=== PATIENT | male | born 1965 | race Hispanic/Latino ===

== ENCOUNTER 2018-08-19 04:18 | Inpatient (IN) | payer MEDICARE ==
[2018-08-19 04:18] VITALS: BMI 25.0
[2018-08-19] MEDS ORDERED: Naloxone 0.4 mg/ml Inj (Adult) ONE (04:33)
--- NOTE | 2018-08-19 04:35 | C.PDOC ---
Chief Complaint (Nursing): Substance Abuse Past Medical History - Medical History PMH: Anxiety, HTN, Parkinson's Disease Denies: HIV, Chronic Kidney Disease - [facility] Procedures INJECT/INFUSE NEC (01/19/14) INTRODUCTION OF SERUM/TOX/VACCINE INTO MUSCLE, PERC APPROACH (06/30/18) Family History: States: CAD - Social History Hx Alcohol Use: No Hx Substance Use: No - Immunization History Hx Tetanus Toxoid Vaccination: No Hx Influenza Vaccination: No Hx Pneumococcal Vaccination: No Disposition - Disposition
--- NOTE | 2018-08-19 04:36 | C.PDOC ---
History Of Present Illness 53 year old male is brought to the ED by EMS for possible overdose at home [employer]. Patient took too much of his medications, klonapin and seroquil. Patient denies fever, chills, headache, nausea, vomit, dizziness, rash, trauma, injury, fall. Chief Complaint (Nursing): Substance Abuse History Per: Patient, EMS History/Exam Limitations: clinical condition Onset/Duration Of Symptoms: Hrs Current Symptoms Are (Timing): Still Present Suicide/Self Injury Attempted (Context): Ingestion Modifying Factor(s): Narcotics Associated Symptoms: Depression, Suicidal Thoughts, Suicidal Plan Recent travel outside of the [place]: No Additional History Per: Patient, EMS Past Medical History Reviewed: Historical Data, Nursing Documentation, Vital Signs - Medical History PMH: Anxiety, HTN, Parkinson's Disease Denies: HIV, Chronic Kidney Disease Surgical History: No Surg Hx - [facility] Procedures INJECT/INFUSE NEC (01/19/14) INTRODUCTION OF SERUM/TOX/VACCINE INTO MUSCLE, PERC APPROACH (06/30/18) Family History: States: CAD - Social History Hx Alcohol Use: No Hx Substance Use: No - Immunization History Hx Tetanus Toxoid Vaccination: No Hx Influenza Vaccination: No Hx Pneumococcal Vaccination: No Review Of Systems Review Of Systems: ROS cannot be obtained secondary to pt's inabilty to answer questions. Physical Exam - Physical Exam Appears: Non-toxic, Other (lethargic) Skin: Normal Color, Warm, Dry Head: Atraumatic, Normacephalic Eye(s): bilateral: Normal Inspection, PERRL Oral Mucosa: Moist Neck: Normal ROM, Supple Chest: Symmetrical Cardiovascular: Rhythm Regular Respiratory: Normal Breath Sounds, No Rales, No Rhonchi, No Wheezing Gastrointestinal/Abdominal: Soft, No Tenderness, No Guarding, No Rebound Extremity: Normal ROM, No Tenderness, No Swelling Neurological/Psych: Other (response to strong stimuli, non verbal) Gait: Unable To Assess ED Course And Treatment - Laboratory Results Result Diagrams: 08/19/18 04:50 08/19/18 04:50 ECG: Interpreted By Me, Viewed By Me ECG Rhythm: Sinus Tachycardia ECG Interpretation: No Acute Changes Interpretation Of ECG: Sinus tachycardia, no acute changes, QT-34.8ms. Repeat EKG, NSR, vertical axis, no significant change from prior tracings, rate of 95/min. Rate From EC O2 Sat by Pulse Oximetry: 100 (ON RA) Pulse Ox Interpretation: Normal - Radiology CXR: Interpreted by Me, Viewed By Me CXR Interpretation: Yes: Other (possible infiltrate right lower lung field) - CT Scan/US CT head Other Rad Studies (CT/US): Read By Radiologist, Radiology Report Reviewed CT/US Interpretation: CT SCAN OF THE BRAIN WITHOUT IV CONTRAST. CLINICAL INDICATION: Overdose. TECHNIQUE: Axial and reformatted sagittal and coronal images of the brain obtained without IV contrast administration. Normal size of the ventricles and extra-axial spaces for the patient's age. Normal white matter tracts of the supratentorial brain. Normal basal ganglia and thalami. Normal brainstem. Normal cerebellum. There is no demonstrated extra-axial, intraparenchymal, or intraventricular hemorrhage. There are no findings of an acute ischemic infarction. Normal calvarium. There is no demonstrated fracture. Normal soft tissue structures. Mild chronic mucosal inflammatory changes of the paranasal sinuses. IMPRESSION: Normal unenhanced CT scan of the brain. . Electronically signed on Aug 19, 2018 5:47:44 AM EDT by: Ashleigh paige M.D., Certified by ABR, MSK, Neuroradiology Progress Note: 0500H Patient noted to respond to Romaxicon 0.25mg IV, subsequently noted to respond to verbal stimuli and questioning with slurred speech. Vital signs remained stable. Medical Decision Making Medical Decision Making: Plan: * ABG * CT head * EKG * Labs * CXR * Narcan 0.4 mg IVP * IV fluids * Spoke with Dr. Mark who accepts the patient to be admitted to her service. Pending ICU evaluation by Dr. Stephens Disposition Discussed With : Janee Mark Doctor Will See Patient In The: Hospital Counseled Patient/Family Regarding: Diagnosis - Disposition Disposition: HOSPITALIZED Disposition Time: 07:00 Condition: GUARDED Forms: [facility] (Romanian) - POA Present On Arrival: None - Clinical Impression Clinical Impression: Drug overdose, intentional - Scribe Statement The provider has reviewed the documentation as recorded by the Scribe Ck Daniels All medical record entries made by the Scribe were at my direction and personally dictated by me. I have reviewed the chart and agree that the record accurately reflects my personal performance of the history, physical exam, medical decision making, and the department course for this patient. I have also personally directed, reviewed, and agree with the discharge instructions and d isposition.
[2018-08-19] MEDS ORDERED: Sodium Chloride 0.9% 1,000 ML IV ONE (04:38)
[2018-08-19] MEDS ORDERED: Naloxone 0.4 mg/ml Inj (Adult) IVP ONE (04:38)
[2018-08-19] MEDS ORDERED: Flumazenil 0.1 mg/ml Inj (5ml) IVP ONE (04:48)
[2018-08-19 05:00] LABS: BASO # 0.1 K/uL (0.0-0.2); BASO % 0.4 % (0.0-2.0); EOS # 0.1 K/uL (0.0-0.7); HEMOGLOBIN 13.6 g/dL (12.0-18.0); LYMPH # 0.8 K/uL (1.0-4.3); LYMPH % 6.3 % (20.0-40.0); MEAN CELL VOLUME 85.1 fL (80.0-94.0); MEAN CORPUSCULAR HEMOGLOBIN 28.3 pg (27.0-31.0); MEAN CORPUSCULAR HGB CONC 33.2 g/dL (33.0-37.0); MEAN PLATELET VOLUME 7.8 fL (7.2-11.7); MONO # 0.4 K/uL (0.0-0.8); MONO % 3.3 % (0.0-10.0); NEUT # 11.7 K/uL (1.8-7.0); PLATELET COUNT 411 K/uL (130-400); RBC 4.82 Mil/uL (4.40-5.90); RED CELL DISTRIBUTION WIDTH 16.8 % (11.5-14.5); WHITE BLOOD COUNT 13.1 K/uL (4.8-10.8)
[2018-08-19] MEDS ORDERED: Flumazenil 0.1 mg/ml Inj (5ml) IVP STA (05:01)
[2018-08-19 05:12] LABS: SQUAMOUS EPITHIAL < 1 /hpf (0-5); URINE BACTERIA RARE (<OCC); URINE BILIRUBIN NEGATIVE (NEGATIVE); URINE BLOOD NEGATIVE (NEGATIVE); URINE CLARITY Hazy (Clear); URINE COLOR Yellow (YELLOW); URINE GLUCOSE (UA) NORMAL (Normal); URINE LEUKOCYTE ESTERASE NEG Leu/uL (Negative); URINE PROTEIN NEGATIVE (NEGATIVE); URINE UROBILINOGEN NORMAL mg/dL (0.2-1.0)
[2018-08-19 05:19] LABS: ACETAMINOPHEN < 10.0 ug/mL (10.0-30.0); ALB/GLOB RATIO 1.6 (1.0-2.1); ALBUMIN 3.7 g/dL (3.5-5.0); ALT/SGPT 40 U/L (21-72); AST/SGOT 39 U/L (17-59); BLOOD UREA NITROGEN 12 mg/dL (9-20); CALCIUM 8.2 mg/dl (8.6-10.4); GFR NON-AFRICAN AMERICAN > 60; SALICYLATE < 1.0 mg/dL 1
[2018-08-19 05:23] LABS: BARBITURATES, UR NEGATIVE (NEGATIVE); OPIATES, UR NEGATIVE (NEGATIVE); PHENCYCLIDINE, UR NEGATIVE (NEGATIVE)
[2018-08-19 05:26] LABS: ABG ALLEN TEST YES; ARTERIAL BLOOD GAS HCO3 23.6 mmol/L (21-28); ARTERIAL BLOOD GAS O2 SAT 100.6 % (95-98); ARTERIAL BLOOD GAS PCO2 41 mm/Hg (35-45); ARTERIAL BLOOD GAS PH 7.37 (7.35-7.45); ARTERIAL BLOOD GAS PO2 110 mm/Hg (80-100)
[2018-08-19] MEDS ORDERED: Azithromycin 500 MG in Sodium Chloride 0.9% 250 ML IVPB STA (05:59)
[2018-08-19] MEDS ORDERED: cefTRIAXone IV 1 gm in Dextros 50 ML IVPB ONE (05:59)
[2018-08-19] MEDS ORDERED: Azithromycin 500mg/250ML NS 500 MG/250 ML BAG IVPB ONE (06:10)
[2018-08-19] MEDS ORDERED: cefTRIAXone 1 gm 1 GM/100 ML BAG IVPB ONE (06:11)
[2018-08-19 06:14] LABS: BANDS 4 % (0-2); EOSINOPHIL 1 % (0-4); LYMPHOCYTE 4 % (20-40); MONOCYTE 4 % (0-10); NEUTROPHIL 87 % (50-75); PLATELET ESTIMATE NORMAL (NORMAL); TOTAL CELLS COUNTED 100
[2018-08-19 07:22] LABS: BENZODIAZEPINES, UR POSITIVE (NEGATIVE)
--- NOTE | 2018-08-19 09:25 | CT ---
Date of service: 08/19/2018 PROCEDURE: CT HEAD WITHOUT CONTRAST. HISTORY: Overdose COMPARISON: None available. TECHNIQUE: Axial computed tomography images were obtained through the head/brain without intravenous contrast. Radiation dose: Total exam DLP = 1010.91 mGy-cm. This CT exam was performed using one or more of the following dose reduction techniques: Automated exposure control, adjustment of the mA and/or kV according to patient size, and/or use of iterative reconstruction technique. FINDINGS: HEMORRHAGE: No intracranial hemorrhage. BRAIN: There are mild chronic microangiopathic changes. There is no mass, mass effect or abnormal extra-axial fluid collection. There is no territorial infarction. The midline sagittal structures are normal. VENTRICLES: There is mild age advanced global parenchymal volume loss and proportionate enlargement of the ventricles and cortical sulci. There is a 1.1 x 1.2 cm left choroid fissure cyst. CALVARIUM: Unremarkable. PARANASAL SINUSES: Mild mucoperiosteal thickening in the ethmoid air cells remaining included paranasal sinuses are clear. MASTOID AIR CELLS: Unremarkable as visualized. No inflammatory changes. OTHER FINDINGS: None. IMPRESSION: No acute intracranial abnormality. Mild chronic microangiopathic changes and mild age advanced global parenchymal volume loss.
--- NOTE | 2018-08-19 09:47 | RAD ---
Date of service: 08/19/2018 PROCEDURE: CHEST RADIOGRAPH, 1 VIEW HISTORY: Overdosed COMPARISON: None available. FINDINGS: LUNGS: The lungs are well inflated. There is bibasilar atelectasis/scarring. PLEURA: No pneumothorax or pleural fluid seen. CARDIOVASCULAR: Normal. OSSEOUS STRUCTURES: No significant abnormalities. VISUALIZED UPPER ABDOMEN: Normal. OTHER FINDINGS: None. IMPRESSION: No acute findings.
--- NOTE | 2018-08-19 11:25 | CP.PCM.HP ---
<Rodger Galvez - Last Filed: 08/19/18 18:44> History of Present Illness - History of Present Illness History of Present Illness: 53 year old male PMHx of Parkinson's is brought to the ED by EMS for possible overdose at home. Patient took too much of his medications, klonapin and sero quil. Patient has recently stopped getting care from his previous neurologist and is not currently being managed for his Parkinson's. His suicide attempt was premeditatted and decided to take the entire bottle of all his home medications. Patient denies fever, chills, headache, nausea, vomit, dizziness, rash, trauma, injury, fall. PMD: Dr Andrews in [place]. Neurologist: Dr Singh [facility]. Social Hx: Pt reports still smoking a few cigarettes a day, and marihuana which help him with his anxiety. Pt drinks socially only 1-2 beers weekly. Pt can recall events prior to OD but wanes out of conscious. Reports taking full bottle of flexaril, seroquil, tyleno PM and about 7 days worth of Sinemet Present on Admission - Present on Admission Any Indicators Present on Admission: No Review of Systems - Review of Systems Systems not reviewed;Unavailable: Altered Mental Status Past Patient History - Past Medical History & Family History Past Medical History?: Yes - Past Social History Smoking Status: Light Smoker < 10 Cigarettes Daily - CARDIAC Hx Hypertension: Yes - PULMONARY Hx Respiratory Disorders: No - NEUROLOGICAL Hx Parkinson's Disease: Yes - HEENT Hx HEENT Problems: No - RENAL Hx Chronic Kidney Disease: No - ENDOCRINE/METABOLIC Hx Endocrine Disorders: No - HEMATOLOGICAL/ONCOLOGICAL Hx Human Immunodeficiency Virus (HIV): No - INTEGUMENTARY Hx Dermatological Problems: No - MUSCULOSKELETAL/RHEUMATOLOGICAL Hx Musculoskeletal Disorders: No Hx Falls: No - GASTROINTESTINAL Hx Gastrointestinal Disorders: No - GENITOURINARY/GYNECOLOGICAL Hx Genitourinary Disorders: No - PSYCHIATRIC Hx Anxiety: Yes Hx Substance Use: No - SURGICAL HISTORY Hx Surgeries: No - ANESTHESIA Hx Anesthesia: No Meds Allergies/Adverse Reactions: Allergies Allergy/AdvReac Type Severity Reaction Status Date / Time No Known Allergies Allergy Verified 07/21/14 11:25 Physical Exam - Constitutional Appears: In Acute Distress - Head Exam Head Exam: ATRAUMATIC, NORMAL INSPECTION - Eye Exam Eye Exam: EOMI, Normal appearance - ENT Exam ENT Exam: Mucous Membranes Dry - Respiratory Exam Respiratory Exam: Clear to Auscultation Bilateral - Cardiovascular Exam Cardiovascular Exam: Tachycardia, +S1, +S2 - GI/Abdominal Exam GI & Abdominal Exam: absent: Organomegaly - Extremities Exam Extremities exam: Positive for: normal inspection - Back Exam Back exam: NORMAL INSPECTION - Neurological Exam Neurological exam: Abnormal Gait (bradykinetic), Alert, CN II-XII Intact, Oriented x3 - Psychiatric Exam Psychiatric exam: Suicidal Ideation Results - Vital Signs Recent Vital Signs: Last Vital Signs Temp 97.5 F L 08/19/18 05:57 Pulse 96 H 08/19/18 09:00 Resp 12 08/19/18 09:00 BP 112/74 08/19/18 09:00 Pulse Ox 100 08/19/18 09:00 - Labs Result Diagrams: 08/19/18 04:50 08/19/18 04:50 Labs: Laboratory Results - last 24 hr 08/19/18 08/19/18 08/19/18 04:49 04:50 04:50 WBC 13.1 H RBC 4.82 Hgb 13.6 Hct 41.0 MCV 85.1 MCH 28.3 MCHC 33.2 RDW 16.8 H Plt Count 411 H MPV 7.8 Neut % (Auto) 89.0 H Lymph % (Auto) 6.3 L [place] % (Auto) 3.3 Eos % (Auto) 1.0 Baso % (Auto) 0.4 Neut # (Auto) 11.7 H Lymph # (Auto) 0.8 L [place] # (Auto) 0.4 Eos # (Auto) 0.1 Baso # (Auto) 0.1 Neutrophils % (Manual) 87 H Band Neutrophils % 4 H Lymphocytes % (Manual) 4 L Monocytes % (Manual) 4 Eosinophils % (Manual) 1 Platelet Estimate Normal Puncture Site pCO2 pO2 HCO3 ABG pH ABG Total CO2 ABG O2 Saturation ABG Base Excess ABG Hemoglobin ABG Carboxyhemoglobin POC ABG HHb (Measured) ABG Methemoglobin Robert Test A-a O2 Difference Respiratory Index Hgb O2 Saturation FiO2 Sodium Potassium Chloride Carbon Dioxide Anion Gap BUN Creatinine Est GFR ( Amer) Est GFR (Non-Af Amer) POC Glucose (mg/dL) 105 Random Glucose Calcium Magnesium Total Bilirubin AST ALT Alkaline Phosphatase Total Protein Albumin Globulin Albumin/Globulin Ratio Urine Color Yellow Urine Clarity Hazy Urine pH 5.0 Ur Specific Hewitt 1.018 Urine Protein Negative Urine Glucose (UA) Normal Urine Ketones Negative Urine Blood Negative Urine Nitrate Negative Urine Bilirubin Negative Urine Urobilinogen Normal Ur Leukocyte Esterase Neg Urine WBC (Auto) 16 H Urine RBC (Auto) 1 Ur Squamous Epith Cells < 1 Urine Bacteria Rare Hyaline Casts 6-10 H Salicylates Urine Opiates Screen Urine Methadone Screen Acetaminophen Ur Barbiturates Screen Ur Phencyclidine Scrn Ur Amphetamines Screen U Benzodiazepines Scrn U Oth Cocaine Metabols U Cannabinoids Screen Alcohol, Quantitative 08/19/18 08/19/18 08/19/18 04:50 04:50 04:50 WBC RBC Hgb Hct MCV MCH MCHC RDW Plt Count MPV Neut % (Auto) Lymph % (Auto) Oxford % (Auto) Eos % (Auto) Baso % (Auto) Neut # (Auto) Lymph # (Auto) [place] # (Auto) Eos # (Auto) Baso # (Auto) Neutrophils % (Manual) Band Neutrophils % Lymphocytes % (Manual) Monocytes % (Manual) Eosinophils % (Manual) Platelet Estimate Puncture Site pCO2 pO2 HCO3 ABG pH ABG Total CO2 ABG O2 Saturation ABG Base Excess ABG Hemoglobin ABG Carboxyhemoglobin POC ABG HHb (Measured) ABG Methemoglobin Robert Test A-a O2 Difference Respiratory Index Hgb O2 Saturation FiO2 Sodium 142 Potassium 3.4 L Chloride 107 Carbon Dioxide 21 L Anion Gap 17 BUN 12 Creatinine 0.8 Est GFR ( Amer) > 60 Est GFR (Non-Af Amer) > 60 POC Glucose (mg/dL) Random Glucose 99 Calcium 8.2 L Magnesium 1.8 Total Bilirubin 0.6 AST 39 ALT 40 Alkaline Phosphatase 49 Total Protein 6.0 L Albumin 3.7 Globulin 2.3 Albumin/Globulin Ratio 1.6 Urine Color Urine Clarity Urine pH Ur Specific Hewitt Urine Protein Urine Glucose (UA) Urine Ketones Urine Blood Urine Nitrate Urine Bilirubin Urine Urobilinogen Ur Leukocyte Esterase Urine WBC (Auto) Urine RBC (Auto) Ur Squamous Epith Cells Urine Bacteria Hyaline Casts Salicylates < 1.0 Urine Opiates Screen Negative Urine Methadone Screen Negative Acetaminophen < 10.0 L Ur Barbiturates Screen Negative Ur Phencyclidine Scrn Negative Ur Amphetamines Screen Negative U Benzodiazepines Scrn Positive U Oth Cocaine Metabols Negative U Cannabinoids Screen Positive H Alcohol, Quantitative < 10 08/19/18 05:10 WBC RBC Hgb Hct MCV MCH MCHC RDW Plt Count MPV Neut % (Auto) Lymph % (Auto) Oxford % (Auto) Eos % (Auto) Baso % (Auto) Neut # (Auto) Lymph # (Auto) [place] # (Auto) Eos # (Auto) Baso # (Auto) Neutrophils % (Manual) Band Neutrophils % Lymphocytes % (Manual) Monocytes % (Manual) Eosinophils % (Manual) Platelet Estimate Puncture Site Rb pCO2 41 pO2 110 H HCO3 23.6 ABG pH 7.37 ABG Total CO2 25.0 ABG O2 Saturation 100.6 H ABG Base Excess -1.6 ABG Hemoglobin 15.0 ABG Carboxyhemoglobin 3.2 H POC ABG HHb (Measured) -0.6 L ABG Methemoglobin 1.0 Robert Test Yes A-a O2 Difference 38.0 Respiratory Index 0.3 Hgb O2 Saturation 96.4 FiO2 28.0 Sodium Potassium Chloride Carbon Dioxide Anion Gap BUN Creatinine Est GFR ( Amer) Est GFR (Non-Af Amer) POC Glucose (mg/dL) Random Glucose Calcium Magnesium Total Bilirubin AST ALT Alkaline Phosphatase Total Protein Albumin Globulin Albumin/Globulin Ratio Urine Color Urine Clarity Urine pH Ur Specific Hewitt Urine Protein Urine Glucose (UA) Urine Ketones Urine Blood Urine Nitrate Urine Bilirubin Urine Urobilinogen Ur Leukocyte Esterase Urine WBC (Auto) Urine RBC (Auto) Ur Squamous Epith Cells Urine Bacteria Hyaline Casts Salicylates Urine Opiates Screen Urine Methadone Screen Acetaminophen Ur Barbiturates Screen Ur Phencyclidine Scrn Ur Amphetamines Screen U Benzodiazepines Scrn U Oth Cocaine Metabols U Cannabinoids Screen Alcohol, Quantitative Assessment & Plan - Assessment and Plan (Free Text) Assessment: 53 M s/p suicide attempt. recieved in ED: azithro rocephin flumazenil nalaxone Plan: Neuro: Sinemet/Flexaril/Ibuprofen/Diphenhydramine Overdose -altered -monitor mental status -Pt able to recall events prior to OD -PT able to provide limited hx, AMS -Head CT neg for acute -consult psych, pt willing to self admit -antidotes given in ED Pulm: -Maintain spO2 >90% -Nasal cannula PRN CardioVasc: -f/u EKG tonight and in AM Heme: -Monitor H/H Renal: -monitor I&O -monitor and repleat electrolytes Endo: -Maintain euglycemia 140-180 blood sugar GI: -ppi not indicated at this time -HHD ID: R/O sepsis -Afebrile -WBCs 13 -f/u blood cultures -Rocephin and Azithro given in ED DVT PPX: -1:1 obs <Ericka Aldana - Last Filed: 08/26/18 19:26> Results - Vital Signs Recent Vital Signs: Last Vital Signs Temp 98.6 F 08/26/18 14:00 Pulse 112 H 08/26/18 14:00 Resp 20 08/26/18 14:00 BP 141/70 08/26/18 14:00 Pulse Ox 97 08/26/18 14:00 - Labs Result Diagrams: 08/26/18 08:50 08/26/18 08:50 Labs: Laboratory Results - last 24 hr 08/26/18 08/26/18 08/26/18 08:50 08:50 08:50 WBC RBC Hgb Hct MCV MCH MCHC RDW Plt Count MPV Sodium Potassium Chloride Carbon Dioxide Anion Gap BUN Creatinine Est GFR ( Amer) Est GFR (Non-Af Amer) Random Glucose Calcium Total Creatine Kinase CK-MB (Mass) Troponin I RPR Nonreactive Hepatitis A IgM Ab Negative Hep Bs Antigen Negative Hep B Core IgM Ab Negative Hepatitis C Antibody Negative HIV 1&2 Antibody Screen Negative 08/26/18 08/26/18 08/26/18 08:50 08:50 09:03 WBC 18.3 H RBC 5.56 Hgb 15.7 Hct 46.5 MCV 83.6 MCH 28.2 MCHC 33.7 RDW 16.6 H Plt Count 670 H MPV 7.3 Sodium 137 Potassium 4.7 Chloride 98 Carbon Dioxide 29 Anion Gap 15 BUN 20 Creatinine 0.8 Est GFR ( Amer) > 60 Est GFR (Non-Af Amer) > 60 Random Glucose 104 Calcium 9.8 Total Creatine Kinase 185 H CK-MB (Mass) 1.22 Troponin I < 0.0120 RPR Hepatitis A IgM Ab Hep Bs Antigen Hep B Core IgM Ab Hepatitis C Antibody HIV 1&2 Antibody Screen 08/26/18 15:39 WBC RBC Hgb Hct MCV MCH MCHC RDW Plt Count MPV Sodium Potassium Chloride Carbon Dioxide Anion Gap BUN Creatinine Est GFR ( Amer) Est GFR (Non-Af Amer) Random Glucose Calcium Total Creatine Kinase 163 CK-MB (Mass) 0.96 Troponin I < 0.0120 RPR Hepatitis A IgM Ab Hep Bs Antigen Hep B Core IgM Ab Hepatitis C Antibody HIV 1&2 Antibody Screen Assessment & Plan - Assessment and Plan (Free Text) Plan: Above patient seen adn examiend at bedside Patient remains hemodynamically stable. -above resident note reviewed and verified. - Date & Time Date: 08/19/18 Time: 18:00
--- NOTE | 2018-08-19 14:37 | CP.PCM.CON ---
History of Present Illness - History of Present Illness History of Present Illness: 53 year old male PMHx of Parkinson's is brought to the ED by EMS for possible overdose at home. Patient took too much of his medications, klonapin and seroquil. Patient has recently stopped getting care from his previous neurologist and is not currently being managed for his Parkinson's. His suicide attempt was premeditatted and decided to take the entire bottle of all his home medications. Patient denies fever, chills, headache, nausea, vomit, dizziness, rash, trauma, injury, fall. PMD: Dr Andrews in [place]. Neurologist: Dr Singh [facility]. Social Hx: Pt reports still smoking a few cigarettes a day, and marihuana which help him with his anxiety. Pt drinks socially only 1-2 beers weekly. Pt can recall events prior to OD but wanes out of conscious. Reports taking full bottle of flexaril, seroquil, tyleno PM and about 7 days worth of Sinemet Review of Systems - Review of Systems Systems not reviewed;Unavailable: Altered Mental Status, Intubated Past Patient History - Tetanus Immunizations Tetanus Immunization: Unknown - Past Medical History & Family History Past Medical History?: Yes - Past Social History Smoking Status: Light Smoker < 10 Cigarettes Daily - CARDIAC Hx Hypertension: Yes - PULMONARY Hx Respiratory Disorders: No - NEUROLOGICAL Hx Parkinson's Disease: Yes - HEENT Hx HEENT Problems: No - RENAL Hx Chronic Kidney Disease: No - ENDOCRINE/METABOLIC Hx Endocrine Disorders: No - HEMATOLOGICAL/ONCOLOGICAL Hx Human Immunodeficiency Virus (HIV): No - INTEGUMENTARY Hx Dermatological Problems: No - MUSCULOSKELETAL/RHEUMATOLOGICAL Hx Musculoskeletal Disorders: No Hx Falls: No - GASTROINTESTINAL Hx Gastrointestinal Disorders: No - GENITOURINARY/GYNECOLOGICAL Hx Genitourinary Disorders: No - PSYCHIATRIC Hx Anxiety: Yes Hx Substance Use: No - SURGICAL HISTORY Hx Surgeries: No - ANESTHESIA Hx Anesthesia: No Meds Allergies/Adverse Reactions: Allergies Allergy/AdvReac Type Severity Reaction Status Date / Time No Known Allergies Allergy Verified 07/21/14 11:25 - Medications Medications: Current Medications Pantoprazole Sodium (Protonix Ec Tab) 40 mg PO DAILY SUMMER Physical Exam - Head Exam Head Exam: NORMAL INSPECTION, NORMOCEPHALIC - Eye Exam Eye Exam: EOMI Pupil Exam: NORMAL ACCOMODATION - ENT Exam ENT Exam: Mucous Membranes Moist - Respiratory Exam Respiratory Exam: Clear to Auscultation Bilateral, Rhonchi - Cardiovascular Exam Cardiovascular Exam: REGULAR RHYTHM, +S1 - GI/Abdominal Exam GI & Abdominal Exam: Normal Bowel Sounds, Soft. absent: Guarding, Rebound, Rigid, Tenderness - Back Exam Back exam: NORMAL INSPECTION - Neurological Exam Neurological exam: Altered Results - Vital Signs Recent Vital Signs: Last Vital Signs Temp 97.4 F L 08/19/18 12:00 Pulse 119 H 08/19/18 12:30 Resp 16 08/19/18 12:30 BP 130/112 H 08/19/18 12:00 Pulse Ox 97 08/19/18 12:30 - Labs Result Diagrams: 08/26/18 08:50 08/26/18 08:50 Labs: Laboratory Results - last 24 hr 08/19/18 08/19/18 08/19/18 04:49 04:50 04:50 WBC 13.1 H RBC 4.82 Hgb 13.6 Hct 41.0 MCV 85.1 MCH 28.3 MCHC 33.2 RDW 16.8 H Plt Count 411 H MPV 7.8 Neut % (Auto) 89.0 H Lymph % (Auto) 6.3 L [place] % (Auto) 3.3 Eos % (Auto) 1.0 Baso % (Auto) 0.4 Neut # (Auto) 11.7 H Lymph # (Auto) 0.8 L [place] # (Auto) 0.4 Eos # (Auto) 0.1 Baso # (Auto) 0.1 Neutrophils % (Manual) 87 H Band Neutrophils % 4 H Lymphocytes % (Manual) 4 L Monocytes % (Manual) 4 Eosinophils % (Manual) 1 Platelet Estimate Normal Puncture Site pCO2 pO2 HCO3 ABG pH ABG Total CO2 ABG O2 Saturation ABG Base Excess ABG Hemoglobin ABG Carboxyhemoglobin POC ABG HHb (Measured) ABG Methemoglobin Robert Test A-a O2 Difference Respiratory Index Hgb O2 Saturation FiO2 Sodium Potassium Chloride Carbon Dioxide Anion Gap BUN Creatinine Est GFR ( Amer) Est GFR (Non-Af Amer) POC Glucose (mg/dL) 105 Random Glucose Calcium Magnesium Total Bilirubin AST ALT Alkaline Phosphatase Total Protein Albumin Globulin Albumin/Globulin Ratio Urine Color Yellow Urine Clarity Hazy Urine pH 5.0 Ur Specific [place] 1.018 Urine Protein Negative Urine Glucose (UA) Normal Urine Ketones Negative Urine Blood Negative Urine Nitrate Negative Urine Bilirubin Negative Urine Urobilinogen Normal Ur Leukocyte Esterase Neg Urine WBC (Auto) 16 H Urine RBC (Auto) 1 Ur Squamous Epith Cells < 1 Urine Bacteria Rare Hyaline Casts 6-10 H Salicylates Urine Opiates Screen Urine Methadone Screen Acetaminophen Ur Barbiturates Screen Ur Phencyclidine Scrn Ur Amphetamines Screen U Benzodiazepines Scrn U Oth Cocaine Metabols U Cannabinoids Screen Alcohol, Quantitative 08/19/18 08/19/18 08/19/18 04:50 04:50 04:50 WBC RBC Hgb Hct MCV MCH MCHC RDW Plt Count MPV Neut % (Auto) Lymph % (Auto) [place] % (Auto) Eos % (Auto) Baso % (Auto) Neut # (Auto) Lymph # (Auto) [place] # (Auto) Eos # (Auto) Baso # (Auto) Neutrophils % (Manual) Band Neutrophils % Lymphocytes % (Manual) Monocytes % (Manual) Eosinophils % (Manual) Platelet Estimate Puncture Site pCO2 pO2 HCO3 ABG pH ABG Total CO2 ABG O2 Saturation ABG Base Excess ABG Hemoglobin ABG Carboxyhemoglobin POC ABG HHb (Measured) ABG Methemoglobin Robert Test A-a O2 Difference Respiratory Index Hgb O2 Saturation FiO2 Sodium 142 Potassium 3.4 L Chloride 107 Carbon Dioxide 21 L Anion Gap 17 BUN 12 Creatinine 0.8 Est GFR ( Amer) > 60 Est GFR (Non-Af Amer) > 60 POC Glucose (mg/dL) Random Glucose 99 Calcium 8.2 L Magnesium 1.8 Total Bilirubin 0.6 AST 39 ALT 40 Alkaline Phosphatase 49 Total Protein 6.0 L Albumin 3.7 Globulin 2.3 Albumin/Globulin Ratio 1.6 Urine Color Urine Clarity Urine pH Ur Specific [place] Urine Protein Urine Glucose (UA) Urine Ketones Urine Blood Urine Nitrate Urine Bilirubin Urine Urobilinogen Ur Leukocyte Esterase Urine WBC (Auto) Urine RBC (Auto) Ur Squamous Epith Cells Urine Bacteria Hyaline Casts Salicylates < 1.0 Urine Opiates Screen Negative Urine Methadone Screen Negative Acetaminophen < 10.0 L Ur Barbiturates Screen Negative Ur Phencyclidine Scrn Negative Ur Amphetamines Screen Negative U Benzodiazepines Scrn Positive U Oth Cocaine Metabols Negative U Cannabinoids Screen Positive H Alcohol, Quantitative < 10 08/19/18 05:10 WBC RBC Hgb Hct MCV MCH MCHC RDW Plt Count MPV Neut % (Auto) Lymph % (Auto) [place] % (Auto) Eos % (Auto) Baso % (Auto) Neut # (Auto) Lymph # (Auto) [place] # (Auto) Eos # (Auto) Baso # (Auto) Neutrophils % (Manual) Band Neutrophils % Lymphocytes % (Manual) Monocytes % (Manual) Eosinophils % (Manual) Platelet Estimate Puncture Site Rb pCO2 41 pO2 110 H HCO3 23.6 ABG pH 7.37 ABG Total CO2 25.0 ABG O2 Saturation 100.6 H ABG Base Excess -1.6 ABG Hemoglobin 15.0 ABG Carboxyhemoglobin 3.2 H POC ABG HHb (Measured) -0.6 L ABG Methemoglobin 1.0 Robert Test Yes A-a O2 Difference 38.0 Respiratory Index 0.3 Hgb O2 Saturation 96.4 FiO2 28.0 Sodium Potassium Chloride Carbon Dioxide Anion Gap BUN Creatinine Est GFR ( Amer) Est GFR (Non-Af Amer) POC Glucose (mg/dL) Random Glucose Calcium Magnesium Total Bilirubin AST ALT Alkaline Phosphatase Total Protein Albumin Globulin Albumin/Globulin Ratio Urine Color Urine Clarity Urine pH Ur Specific [place] Urine Protein Urine Glucose (UA) Urine Ketones Urine Blood Urine Nitrate Urine Bilirubin Urine Urobilinogen Ur Leukocyte Esterase Urine WBC (Auto) Urine RBC (Auto) Ur Squamous Epith Cells Urine Bacteria Hyaline Casts Salicylates Urine Opiates Screen Urine Methadone Screen Acetaminophen Ur Barbiturates Screen Ur Phencyclidine Scrn Ur Amphetamines Screen U Benzodiazepines Scrn U Oth Cocaine Metabols U Cannabinoids Screen Alcohol, Quantitative Assessment & Plan - Assessment and Plan (Free Text) Assessment: 53 My/o male with pmx of psych disorder admitted to [facility] with overdose of prescription medications, Altered mental status: supportive care -Head CT neg for acute -consult psych for suicidal ideation -monitor cardiology and pulmonary functions -aspiration precautions -Aspiration PNA:-Afebrile, smith culture, -WBCs 13,-f/u blood cultures, continue Rocephin and Azithro, obtain sputum culture, serial lactic -continue dvt/pud ppx -PAtient remains hemodynamically stable - Date & Time Date: 08/19/18 Time: 14:40
--- NOTE | 2018-08-19 14:41 | PCM.SEPTIC ---
Sepsis Progress Note - Reassessment Type Reassessment Type: Non-invasive reassessment - Non Invasive Reassessment Were the most recent vital sign reviewed: Yes Vital Sign (Latest): Temp Pulse Resp BP Pulse Ox 97.4 F L 119 H 16 130/112 H 97 08/19/18 12:00 08/19/18 12:30 08/19/18 12:30 08/19/18 12:00 08/19/18 12:30 Cardiovascular: Yes: Regular Rate, Rhythm. No: Edema Respiratory: Yes: Normal Breath Sounds Capillary Refill: Normal (Less than 2 sec) Pulses: Normal Radial, Normal Dorsalis Pedis, Normal Posterior Tibialis Skin: Normal Color - Invasive Reassessment (complete 2 of 4) Was a Central Venous Pressure Measurement obtained within 6 Hours after the presentation of septic shock: No Was a central venous oxygen measurement obtained within 6 hours after the presentation of septic shock: No Was a bedside cardiovascular ultrasound performed within 6 hours after the presentation of septic shock: No Was a passive leg raise performed or was a fluid challenge performed within 6 hrs of the initial fluid bolus: No
--- NOTE | 2018-08-19 15:00 | RAD ---
Date of service: 08/19/2018 PROCEDURE: CHEST RADIOGRAPH, 1 VIEW HISTORY: asp risk COMPARISON: 08/19/2018. FINDINGS: LUNGS: The lungs are well inflated and clear. PLEURA: No pneumothorax or pleural fluid seen. CARDIOVASCULAR: Normal. OSSEOUS STRUCTURES: No significant abnormalities. VISUALIZED UPPER ABDOMEN: Normal. OTHER FINDINGS: None. IMPRESSION: No active pulmonary disease.
[2018-08-20 06:47] LABS: BASO % 0.3 % (0.0-2.0); EOS # 0.1 K/uL (0.0-0.7); EOS % 0.9 % (0.0-4.0); HEMOGLOBIN 15.4 g/dL (12.0-18.0); LYMPH # 0.9 K/uL (1.0-4.3); LYMPH % 6.1 % (20.0-40.0); MEAN CELL VOLUME 84.3 fL (80.0-94.0); MEAN CORPUSCULAR HEMOGLOBIN 28.8 pg (27.0-31.0); MEAN CORPUSCULAR HGB CONC 34.2 g/dL (33.0-37.0); MEAN PLATELET VOLUME 7.6 fL (7.2-11.7); MONO # 0.7 K/uL (0.0-0.8); MONO % 4.5 % (0.0-10.0); NEUT % 88.2 % (50.0-75.0); NRBC % 0.1 % (0.0-2.0); PLATELET COUNT 482 K/uL (130-400); RBC 5.34 Mil/uL (4.40-5.90); RED CELL DISTRIBUTION WIDTH 17.3 % (11.5-14.5); WHITE BLOOD COUNT 14.7 K/uL (4.8-10.8)
[2018-08-20 07:02] LABS: ALB/GLOB RATIO 1.6 (1.0-2.1); ALBUMIN 4.2 g/dL (3.5-5.0); ALT/SGPT 64 U/L (21-72); AST/SGOT 103 U/L (17-59); BLOOD UREA NITROGEN 15 mg/dL (9-20); CALCIUM 9.4 mg/dl (8.6-10.4); GFR NON-AFRICAN AMERICAN > 60
--- NOTE | 2018-08-20 07:55 | HP ---
date 08/20/18 CHIEF COMPLAINT: Altered mental status. HISTORY OF PRESENT ILLNESS: Mr. Chele Jain is a 53-year-old male brought to the ED by EMS for possible overdose of home medication. The patient took much of his medications, currently on Seroquel. The patient denies fever, chills, headaches, nausea, vomiting, dizziness, The patient has history of substance abuse. The patient has history of narcotic abuse. PAST MEDICAL HISTORY: Hypertension, Parkinson disease. PAST SURGICAL HISTORY: No surgeries. FAMILY HISTORY: Father and mother noncontributory. HABITS: Alcohol, no. Substance abuse, no. REVIEW OF SYSTEMS: The patient was seen and examined at the bedside, lethargic, getting oxygen with mask. Opens eye on command, and he is calling some people. PHYSICAL EXAMINATION: VITAL SIGNS: Temperature 98.6, heart rate 80, respiratory rate 18, pulse oximeter 100. GENERAL: Mr. Chele Jain is a 53-year-old male. ASSESSMENT AND PLAN: He has leukocytosis, thrombocytosis, hypokalemia, hypochloremia, history of substance abuse, drug abuse, altered mental status, seen by Dr. Ericka Aldana. Gastrointestinal and deep venous thrombosis prophylaxis given. The patient admitted in the ICU unit. Psych consult called. Repeat labs. We will follow up. Janee Mark MD FAISAL
[2018-08-20 09:23] LABS: LYMPHOCYTE 5 % (20-40); MONOCYTE 2 % (0-10); NEUTROPHIL 93 % (50-75); TOTAL CELLS COUNTED 100
[2018-08-20 09:24] LABS: PLATELET ESTIMATE SLIGHTLY INCREASED (NORMAL)
[2018-08-20] MEDS: Pantoprazole 40 mg EC Tab PO SCH (10:00)
--- NOTE | 2018-08-20 10:30 | CP.CCUPN ---
<Rodger Galvez - Last Filed: 08/20/18 10:37> CCU Subjective - Physician Review Subjective (Free Text): 08/20/18 10:28 Pt improved. AAOx3 Pt unable to recall yesterday's events. Pt complains of rash on sacrum. denies cp sob fc nv 08/20/18 10:33 CCU Objective - Vital Signs / Intake & Output Vital Signs (Last 4 hours): Vital Signs Temp Pulse Resp BP Pulse Ox 08/20/18 08:00 98.8 F 98 08/20/18 07:20 94 H 11 L 93 L 08/20/18 07:10 111 H 22 94 L 08/20/18 07:00 92 H 10 L 132/86 92 L 08/20/18 06:50 111 H 14 96 08/20/18 06:49 96 H 18 132/86 95 08/20/18 06:40 97 H 16 93 L 08/20/18 06:30 100 H 13 94 L Intake and Output (Last 8hrs): Intake & Output 08/19/18 08/20/18 08/20/18 22:59 06:59 14:59 Intake Total 550 0 0 Output Total 900 750 Balance -350 -750 0 Weight 159 lb Intake: Intake, IV Amount 0 0 0 Left Antecubital 0 0 0 Oral 550 Output: Urine 900 750 Condom 900 750 Other: # Bowel Movements 0 0 0 - Physical Exam Other physical findings (Free Text): Appears: Non-toxic, No Acute Distress, Other (Morbidly obese) Skin: Warm, Dry, Sacrum rash [id number] Head: Atraumatic, Normacephalic Eye(s): bilateral: Normal Inspection, PERRL, EOMI Nose: Normal Oral Mucosa: Moist Lips: Normal Appearing Neck: Normal ROM Cardiovascular: Rhythm Regular, Murmur (systolic) Respiratory: No Accessory Muscle Use, Rales (bases), Wheezing (B/L) Gastrointestinal/Abdominal: Soft, No Tenderness Back: Normal Inspection Extremity: Pedal Edema (B/L, chronic), Other (chronic venous stasis changes) Pulses: Left Dorsalis Pedis: Normal, Right Dorsalis Pedis: Normal Neurological/Psych: Oriented x3, Normal Speech - Medications Active Medications: Active Medications Generic Name Dose Route Start Last Admin Trade Name Freq PRN Reason Stop Dose Admin Acetaminophen 650 mg 08/19/18 21:57 Tylenol 325mg Tab PO Q6 PRN for c/o back pain Pantoprazole Sodium 40 mg 08/20/18 10:00 08/20/18 10:00 Protonix Ec Tab PO 40 mg DAILY [facility] Administration Vitamin A 1 ea 08/20/18 18:00 Vitamin A & D Oint Ud Foilpak TOP BID [facility] - Patient Studies Lab Studies: Microbiology Studies 08/19/18 10:11 MRSA Culture (Admit) - Final Nose MRSA NOT DETECTED 08/19/18 07:35 Urine Culture - Final Urine,Catheterized No Growth (<1,000 CFU/ML) Lab Studies 08/20/18 08/20/18 08/20/18 Range/Units 06:43 06:43 06:43 WBC 14.7 H (4.8-10.8) K/uL RBC 5.34 (4.40-5.90) Mil/uL Hgb 15.4 (12.0-18.0) g/dL Hct 45.1 (35.0-51.0) % MCV 84.3 (80.0-94.0) fL MCH 28.8 (27.0-31.0) pg MCHC 34.2 (33.0-37.0) g/dL RDW 17.3 H (11.5-14.5) % Plt Count 482 H (130-400) K/uL MPV 7.6 (7.2-11.7) fL Neut % (Auto) 88.2 H (50.0-75.0) % Lymph % (Auto) 6.1 L (20.0-40.0) % [place] % (Auto) 4.5 (0.0-10.0) % Eos % (Auto) 0.9 (0.0-4.0) % Baso % (Auto) 0.3 (0.0-2.0) % Neut # (Auto) 13.0 H (1.8-7.0) K/uL Lymph # (Auto) 0.9 L (1.0-4.3) K/uL [place] # (Auto) 0.7 (0.0-0.8) K/uL Eos # (Auto) 0.1 (0.0-0.7) K/uL Baso # (Auto) 0.0 (0.0-0.2) K/uL Neutrophils % (Manual) 93 H (50-75) % Lymphocytes % (Manual) 5 L (20-40) % Monocytes % (Manual) 2 (0-10) % Platelet Estimate Slightly increased H (NORMAL) RBC Morphology Normal Sodium 140 (132-148) mmol/L Potassium 4.7 (3.6-5.2) mmol/L Chloride 105 (98-107) mmol/L Carbon Dioxide 25 (22-30) mmol/L Anion Gap 15 (10-20) BUN 15 (9-20) mg/dL Creatinine 0.9 (0.8-1.5) mg/dL Est GFR ( Amer) > 60 Est GFR (Non-Af Amer) > 60 Random Glucose 95 (75-110) mg/dL Lactic Acid (0.7-2.1) mmol/L Calcium 9.4 (8.6-10.4) mg/dl Phosphorus 5.0 H (2.5-4.5) mg/dL Magnesium 2.2 (1.6-2.3) mg/dL Total Bilirubin 1.0 (0.2-1.3) mg/dL AST 103 H D (17-59) U/L ALT 64 (21-72) U/L Alkaline Phosphatase 55 (38-126) U/L Ammonia 9 (9-33) umol/L Total Protein 6.8 (6.3-8.3) g/dL Albumin 4.2 (3.5-5.0) g/dL Globulin 2.6 (2.2-3.9) gm/dL Albumin/Globulin Ratio 1.6 (1.0-2.1) 08/19/18 Range/Units 16:27 WBC (4.8-10.8) K/uL RBC (4.40-5.90) Mil/uL Hgb (12.0-18.0) g/dL Hct (35.0-51.0) % MCV (80.0-94.0) fL MCH (27.0-31.0) pg MCHC (33.0-37.0) g/dL RDW (11.5-14.5) % Plt Count (130-400) K/uL MPV (7.2-11.7) fL Neut % (Auto) (50.0-75.0) % Lymph % (Auto) (20.0-40.0) % [place] % (Auto) (0.0-10.0) % Eos % (Auto) (0.0-4.0) % Baso % (Auto) (0.0-2.0) % Neut # (Auto) (1.8-7.0) K/uL Lymph # (Auto) (1.0-4.3) K/uL [place] # (Auto) (0.0-0.8) K/uL Eos # (Auto) (0.0-0.7) K/uL Baso # (Auto) (0.0-0.2) K/uL Neutrophils % (Manual) (50-75) % Lymphocytes % (Manual) (20-40) % Monocytes % (Manual) (0-10) % Platelet Estimate (NORMAL) RBC Morphology Sodium (132-148) mmol/L Potassium (3.6-5.2) mmol/L Chloride (98-107) mmol/L Carbon Dioxide (22-30) mmol/L Anion Gap (10-20) BUN (9-20) mg/dL Creatinine (0.8-1.5) mg/dL Est GFR ( Amer) Est GFR (Non-Af Amer) Random Glucose (75-110) mg/dL Lactic Acid 1.3 (0.7-2.1) mmol/L Calcium (8.6-10.4) mg/dl Phosphorus (2.5-4.5) mg/dL Magnesium (1.6-2.3) mg/dL Total Bilirubin (0.2-1.3) mg/dL AST (17-59) U/L ALT (21-72) U/L Alkaline Phosphatase (38-126) U/L Ammonia (9-33) umol/L Total Protein (6.3-8.3) g/dL Albumin (3.5-5.0) g/dL Globulin (2.2-3.9) gm/dL Albumin/Globulin Ratio (1.0-2.1) Laboratory Results - last 24 hr 08/19/18 08/20/18 08/20/18 16:27 06:43 06:43 WBC 14.7 H RBC 5.34 Hgb 15.4 Hct 45.1 MCV 84.3 MCH 28.8 MCHC 34.2 RDW 17.3 H Plt Count 482 H MPV 7.6 Neut % (Auto) 88.2 H Lymph % (Auto) 6.1 L [place] % (Auto) 4.5 Eos % (Auto) 0.9 Baso % (Auto) 0.3 Neut # (Auto) 13.0 H Lymph # (Auto) 0.9 L [place] # (Auto) 0.7 Eos # (Auto) 0.1 Baso # (Auto) 0.0 Neutrophils % (Manual) 93 H Lymphocytes % (Manual) 5 L Monocytes % (Manual) 2 Platelet Estimate Slightly increased H RBC Morphology Normal Sodium 140 Potassium 4.7 Chloride 105 Carbon Dioxide 25 Anion Gap 15 BUN 15 Creatinine 0.9 Est GFR ( Amer) > 60 Est GFR (Non-Af Amer) > 60 Random Glucose 95 Lactic Acid 1.3 Calcium 9.4 Phosphorus 5.0 H Magnesium 2.2 Total Bilirubin 1.0 AST 103 H D ALT 64 Alkaline Phosphatase 55 Ammonia Total Protein 6.8 Albumin 4.2 Globulin 2.6 Albumin/Globulin Ratio 1.6 08/20/18 06:43 WBC RBC Hgb Hct MCV MCH MCHC RDW Plt Count MPV Neut % (Auto) Lymph % (Auto) [place] % (Auto) Eos % (Auto) Baso % (Auto) Neut # (Auto) Lymph # (Auto) [place] # (Auto) Eos # (Auto) Baso # (Auto) Neutrophils % (Manual) Lymphocytes % (Manual) Monocytes % (Manual) Platelet Estimate RBC Morphology Sodium Potassium Chloride Carbon Dioxide Anion Gap BUN Creatinine Est GFR ( Amer) Est GFR (Non-Af Amer) Random Glucose Lactic Acid Calcium Phosphorus Magnesium Total Bilirubin AST ALT Alkaline Phosphatase Ammonia 9 Total Protein Albumin Globulin Albumin/Globulin Ratio EKG/Cardiology Studies: Cardiology / EKG Studies 08/19/18 12:00 EKG [ELECTROCARDIOGRAM] Routine Comment: Mode Of Transportation: Reason For Exam: Overdose 08/20/18 06:00 EKG [ELECTROCARDIOGRAM] Routine Comment: Mode Of Transportation: Reason For Exam: s/p overdose Critical Care Progress Note - Nutrition Nutrition: Nutrition Category Date Time Status Heart Healthy Diet [DIET] Diets 08/19/18 Lunch Active Assessment/Plan - Assessment and Plan (Free Text) Assessment: 53 M s/p suicide attempt. recieved in ED: azithro rocephin flumazenil nalaxone stable for transfer to psych Plan: Neuro: Sinemet/Flexaril/Ibuprofen/Diphenhydramine Overdose -altered -monitor mental status -Pt able to recall events prior to OD -PT able to provide limited hx, AMS -Head CT neg for acute -consult psych, pt willing to self admit -antidotes given in ED Pulm: -Maintain spO2 >90% -Nasal cannula PRN CardioVasc: -EKGs neg x 3 Heme: -Monitor H/H Renal: -monitor I&O -monitor and repleat electrolytes Endo: -Maintain euglycemia 140-180 blood sugar GI: Transaminitis -likely s/p Overdose. -avoid hepaotoxic meds -ppi not indicated at this time -HHD ID: R/O sepsis -Afebrile -WBCs 13 -f/u blood cultures -Rocephin and Azithro given in ED Rash: sacrum -vit A+D top cream DVT PPX: -1:1 obs <Jonatan Howard S - Last Filed: 08/20/18 17:56> CCU Subjective - Physician Review Critical Care Time Spent (in minutes): 40 CCU Objective - Vital Signs / Intake & Output Vital Signs (Last 4 hours): Vital Signs Temp Pulse Resp BP Pulse Ox 08/20/18 17:40 100 H 13 95 08/20/18 17:30 99 H 19 94 L 08/20/18 17:20 115 H 22 96 08/20/18 17:10 111 H 25 H 92 L 08/20/18 17:00 110 H 16 93 L 08/20/18 16:50 116 H 16 95 08/20/18 16:49 112 H 17 124/89 90 L 08/20/18 16:40 117 H 15 94 L 08/20/18 16:36 117 H 131/86 95 08/20/18 16:30 114 H 21 08/20/18 16:20 108 H 15 08/20/18 16:10 123 H 25 H 08/20/18 16:00 98.0 F 126 H 24 132/78 97 08/20/18 15:50 118 H 13 08/20/18 15:40 120 H 14 08/20/18 15:30 119 H 17 08/20/18 15:20 111 H 12 08/20/18 15:10 121 H 19 08/20/18 15:00 123 H 18 08/20/18 14:50 119 H 16 08/20/18 14:40 124 H 15 08/20/18 14:33 125 H 18 124/85 08/20/18 14:30 123 H 15 08/20/18 14:20 124 H 17 08/20/18 14:10 121 H 21 08/20/18 14:00 112 H 12 Intake and Output (Last 8hrs): Intake & Output 08/20/18 08/20/18 08/20/18 06:59 14:59 22:59 Intake Total 0 0 Output Total 750 Balance -750 0 Weight 159 lb Intake: Intake, IV Amount 0 0 Left Antecubital 0 0 Output: Urine 750 Condom 750 Other: # Bowel Movements 0 0 - Medications Active Medications: Active Medications Generic Name Dose Route Start Last Admin Trade Name Freq PRN Reason Stop Dose Admin Acetaminophen 650 mg 08/19/18 21:57 08/20/18 14:33 Tylenol 325mg Tab PO 650 mg Q6 PRN Administration for c/o back pain Carbidopa/Levodopa 1 tab 08/20/18 18:00 Sinemet 10/100 PO QID [facility] Heparin Sodium (Porcine) 5,000 units 08/20/18 14:00 08/20/18 14:33 Heparin SC 5,000 units Q8 [facility] Administration Mupirocin 0 gm 08/20/18 17:00 Bactroban Ointment TOP DAILY [facility] Pantoprazole Sodium 40 mg 08/20/18 10:00 08/20/18 10:00 Protonix Ec Tab PO 40 mg DAILY [facility] Administration Vitamin A 1 ea 08/20/18 18:00 Vitamin A & D Oint Ud Foilpak TOP BID [facility] - Patient Studies Lab Studies: Microbiology Studies 08/19/18 06:00 Blood Culture - Preliminary Blood NO GROWTH AFTER 24 HOURS 08/19/18 06:30 Blood Culture - Preliminary Blood NO GROWTH AFTER 24 HOURS 08/19/18 10:11 MRSA Culture (Admit) - Final Nose MRSA NOT DETECTED 08/19/18 07:35 Urine Culture - Final Urine,Catheterized No Growth (<1,000 CFU/ML) Lab Studies 10/12/18 10/12/18 10/12/18 Range/Units 06:43 06:43 06:43 WBC 14.7 H (4.8-10.8) K/uL RBC 5.34 (4.40-5.90) Mil/uL Hgb 15.4 (12.0-18.0) g/dL Hct 45.1 (35.0-51.0) % MCV 84.3 (80.0-94.0) fL MCH 28.8 (27.0-31.0) pg MCHC 34.2 (33.0-37.0) g/dL RDW 17.3 H (11.5-14.5) % Plt Count 482 H (130-400) K/uL MPV 7.6 (7.2-11.7) fL Neut % (Auto) 88.2 H (50.0-75.0) % Lymph % (Auto) 6.1 L (20.0-40.0) % [place] % (Auto) 4.5 (0.0-10.0) % Eos % (Auto) 0.9 (0.0-4.0) % Baso % (Auto) 0.3 (0.0-2.0) % Neut # (Auto) 13.0 H (1.8-7.0) K/uL Lymph # (Auto) 0.9 L (1.0-4.3) K/uL [place] # (Auto) 0.7 (0.0-0.8) K/uL Eos # (Auto) 0.1 (0.0-0.7) K/uL Baso # (Auto) 0.0 (0.0-0.2) K/uL Neutrophils % (Manual) 93 H (50-75) % Lymphocytes % (Manual) 5 L (20-40) % Monocytes % (Manual) 2 (0-10) % Platelet Estimate Slightly increased H (NORMAL) RBC Morphology Normal Sodium 140 (132-148) mmol/L Potassium 4.7 (3.6-5.2) mmol/L Chloride 105 (98-107) mmol/L Carbon Dioxide 25 (22-30) mmol/L Anion Gap 15 (10-20) BUN 15 (9-20) mg/dL Creatinine 0.9 (0.8-1.5) mg/dL Est GFR ( Amer) > 60 Est GFR (Non-Af Amer) > 60 Random Glucose 95 (75-110) mg/dL Calcium 9.4 (8.6-10.4) mg/dl Phosphorus 5.0 H (2.5-4.5) mg/dL Magnesium 2.2 (1.6-2.3) mg/dL Total Bilirubin 1.0 (0.2-1.3) mg/dL AST 103 H D (17-59) U/L ALT 64 (21-72) U/L Alkaline Phosphatase 55 (38-126) U/L Ammonia 9 (9-33) umol/L Total Protein 6.8 (6.3-8.3) g/dL Albumin 4.2 (3.5-5.0) g/dL Globulin 2.6 (2.2-3.9) gm/dL Albumin/Globulin Ratio 1.6 (1.0-2.1) Laboratory Results - last 24 hr 08/20/18 08/20/18 08/20/18 06:43 06:43 06:43 WBC 14.7 H RBC 5.34 Hgb 15.4 Hct 45.1 MCV 84.3 MCH 28.8 MCHC 34.2 RDW 17.3 H Plt Count 482 H MPV 7.6 Neut % (Auto) 88.2 H Lymph % (Auto) 6.1 L [place] % (Auto) 4.5 Eos % (Auto) 0.9 Baso % (Auto) 0.3 Neut # (Auto) 13.0 H Lymph # (Auto) 0.9 L [place] # (Auto) 0.7 Eos # (Auto) 0.1 Baso # (Auto) 0.0 Neutrophils % (Manual) 93 H Lymphocytes % (Manual) 5 L Monocytes % (Manual) 2 Platelet Estimate Slightly increased H RBC Morphology Normal Sodium 140 Potassium 4.7 Chloride 105 Carbon Dioxide 25 Anion Gap 15 BUN 15 Creatinine 0.9 Est GFR ( Amer) > 60 Est GFR (Non-Af Amer) > 60 Random Glucose 95 Calcium 9.4 Phosphorus 5.0 H Magnesium 2.2 Total Bilirubin 1.0 AST 103 H D ALT 64 Alkaline Phosphatase 55 Ammonia 9 Total Protein 6.8 Albumin 4.2 Globulin 2.6 Albumin/Globulin Ratio 1.6 EKG/Cardiology Studies: Cardiology / EKG Studies 08/20/18 06:00 EKG [ELECTROCARDIOGRAM] Routine Comment: Mode Of Transportation: Reason For Exam: s/p overdose Critical Care Progress Note - Nutrition Nutrition: Nutrition Category Date Time Status Heart Healthy Diet [DIET] Diets 08/19/18 Lunch Active Attending/Attestation - Attestation I have personally seen and examined this patient.: Yes I have fully participated in the care of the patient.: Yes I have reviewed all pertinent clinical information: Yes Notes (Text): 08/20/18 17:55 patient seen and examined Sinemet/Flexaril/Ibuprofen/Diphenhydramine Overdose Patient is alert and oriented 3 Psych evaluation Stable for transfer to floor
--- NOTE | 2018-08-20 14:03 | CP.PCM.CON ---
<Damien Reynolds - Last Filed: 08/21/18 17:16> History of Present Illness - History of Present Illness History of Present Illness: PGY1 Neurology Consult Note for Dr. Rodriguez Patient is a 53-year-old male with past medical history of Parkinsons Disease and depression who was referred to us by Dr. Barnett. Patient states he was found by his friend in his apartment altered after an apparent overdose of the patients home medications. Patient says he vaguely recalls that his friend was calling out his name, and the next thing the patient states that he recalls is being in the hospital. Patient says he felt extremely depressed, after which he took all of his home medications (including clonopin, seroquel, flexeril, tylenol PM) because he says he was feeling depressed. Patient says he follows Dr. Singh at [place], and that he is on the path of undergoing brain stimulation. Patient says that he thinks he needs to cut back on his levodopa due to having experienced some visual hallucinations recently. ROS is significant for dyskinesia, bradykinesia, rigitidy, and shuffling gait. Patient otherwise denies chest pain, shortness of breath, headache, dizziness, neck pain, palpitations, vision disturbances. Patient was administered antidote in ED and was admitted to ICU for closer monitoring. Review of Systems - Constitutional Constitutional: As Per HPI - EENT Eyes: As Per HPI Ears: As Per HPI Nose/Mouth/Throat: As Per HPI - Cardiovascular Cardiovascular: As Per HPI - Respiratory Respiratory: As Per HPI - Gastrointestinal Gastrointestinal: As Per HPI - Musculoskeletal Musculoskeletal: As Per HPI - Neurological Neurological: As Per HPI - Psychiatric Psychiatric: As Per HPI Past Patient History - Tetanus Immunizations Tetanus Immunization: Unknown - Past Medical History & Family History Past Medical History?: Yes - Past Social History Smoking Status: Light Smoker < 10 Cigarettes Daily - CARDIAC Hx Hypertension: Yes - PULMONARY Hx Respiratory Disorders: No - NEUROLOGICAL Hx Parkinson's Disease: Yes - HEENT Hx HEENT Problems: No - RENAL Hx Chronic Kidney Disease: No - ENDOCRINE/METABOLIC Hx Endocrine Disorders: No - HEMATOLOGICAL/ONCOLOGICAL Hx Human Immunodeficiency Virus (HIV): No - INTEGUMENTARY Hx Dermatological Problems: No - MUSCULOSKELETAL/RHEUMATOLOGICAL Hx Musculoskeletal Disorders: No Hx Falls: No - GASTROINTESTINAL Hx Gastrointestinal Disorders: No - GENITOURINARY/GYNECOLOGICAL Hx Genitourinary Disorders: No - PSYCHIATRIC Hx Anxiety: Yes Hx Substance Use: No - SURGICAL HISTORY Hx Surgeries: No - ANESTHESIA Hx Anesthesia: No Meds Allergies/Adverse Reactions: Allergies Allergy/AdvReac Type Severity Reaction Status Date / Time No Known Allergies Allergy Verified 07/21/14 11:25 - Medications Medications: Current Medications Acetaminophen (Tylenol 325mg Tab) 650 mg PO Q6 PRN PRN Reason: for c/o back pain Heparin Sodium (Porcine) (Heparin) 5,000 units SC Q8 [facility] Pantoprazole Sodium (Protonix Ec Tab) 40 mg PO DAILY [facility] Last Admin: 08/20/18 10:00 Dose: 40 mg Vitamin A (Vitamin A & D Oint Ud Foilpak) 1 ea TOP BID [facility] Physical Exam - Constitutional Appears: Non-toxic, No Acute Distress - Head Exam Head Exam: ATRAUMATIC, NORMAL INSPECTION, NORMOCEPHALIC - Eye Exam Eye Exam: EOMI, Normal appearance, PERRL Pupil Exam: NORMAL ACCOMODATION - ENT Exam ENT Exam: Mucous Membranes Moist, Normal Exam - Neurological Exam Neurological exam: Alert, CN II-XII Intact, Oriented x3, Reflexes Normal Additional comments: Positive for: bradykinesia, dyskinesia, cogwheel rigidity, and shuffling gait - Expanded Neurological Exam Expanded Neurological exam: Tremor Patient oriented to: person, place, time Speech: Fluid Speech Cranial nerves: EOM's Intact: Normal, Facial Palsey w/Forehead Movement: Normal, Facial Palsey w/o Forehead Movement: Normal, Facial Sensation: Normal, Gag Reflex: Normal, Nystagmus: Normal, Tongue Deviation: Normal Upper motor neuron: Pronator Drift: Normal Neuro motor strength exam: Left Upper Extremity: 5, Right Upper Extremity: 5, Left Lower Extremity: 5, Right Lower Extremity: 5 - Psychiatric Exam Psychiatric exam: Normal Mood Additional comments: Flat facies appreciated Results - Vital Signs Recent Vital Signs: Last Vital Signs Temp 98.8 F 08/20/18 08:00 Pulse 112 H 08/20/18 14:00 Resp 12 08/20/18 14:00 BP 139/86 08/20/18 13:06 Pulse Ox 90 L 08/20/18 09:30 - Labs Result Diagrams: 08/21/18 05:52 08/21/18 05:52 Labs: Laboratory Results - last 24 hr 08/19/18 08/20/18 08/20/18 16:27 06:43 06:43 WBC 14.7 H RBC 5.34 Hgb 15.4 Hct 45.1 MCV 84.3 MCH 28.8 MCHC 34.2 RDW 17.3 H Plt Count 482 H MPV 7.6 Neut % (Auto) 88.2 H Lymph % (Auto) 6.1 L [place] % (Auto) 4.5 Eos % (Auto) 0.9 Baso % (Auto) 0.3 Neut # (Auto) 13.0 H Lymph # (Auto) 0.9 L [place] # (Auto) 0.7 Eos # (Auto) 0.1 Baso # (Auto) 0.0 Neutrophils % (Manual) 93 H Lymphocytes % (Manual) 5 L Monocytes % (Manual) 2 Platelet Estimate Slightly increased H RBC Morphology Normal Sodium 140 Potassium 4.7 Chloride 105 Carbon Dioxide 25 Anion Gap 15 BUN 15 Creatinine 0.9 Est GFR ( Amer) > 60 Est GFR (Non-Af Amer) > 60 Random Glucose 95 Lactic Acid 1.3 Calcium 9.4 Phosphorus 5.0 H Magnesium 2.2 Total Bilirubin 1.0 AST 103 H D ALT 64 Alkaline Phosphatase 55 Ammonia Total Protein 6.8 Albumin 4.2 Globulin 2.6 Albumin/Globulin Ratio 1.6 08/20/18 06:43 WBC RBC Hgb Hct MCV MCH MCHC RDW Plt Count MPV Neut % (Auto) Lymph % (Auto) [place] % (Auto) Eos % (Auto) Baso % (Auto) Neut # (Auto) Lymph # (Auto) [place] # (Auto) Eos # (Auto) Baso # (Auto) Neutrophils % (Manual) Lymphocytes % (Manual) Monocytes % (Manual) Platelet Estimate RBC Morphology Sodium Potassium Chloride Carbon Dioxide Anion Gap BUN Creatinine Est GFR ( Amer) Est GFR (Non-Af Amer) Random Glucose Lactic Acid Calcium Phosphorus Magnesium Total Bilirubin AST ALT Alkaline Phosphatase Ammonia 9 Total Protein Albumin Globulin Albumin/Globulin Ratio Assessment & Plan - Assessment and Plan (Free Text) Assessment: Patient is a 53-year-old male with past medical history of Parkinsons Disease and depression who was admitted to ICU for closer monitoring after overdosing on his home medications (including clonopin, seroquel, flexeril, tylenol PM) Parkinson's Disease - CT head without contrast obtained: negative for acute intracranial abnormalities - Patient restarted on Sinemet 10/100 QID - Recommend obtaining SANDI scan as out-patient - Patient is to follow-up with Dr. Singh regarding brain stimulation and SANDI scan Patient seen and case discussed with Dr. Jennifer Reynolds PGY1 <Anthony Rodriguez - Last Filed: 08/28/18 00:01> Meds - Medications Medications: Current Medications Acetaminophen (Tylenol 325mg Tab) 650 mg PO Q6 PRN PRN Reason: for c/o back pain Last Admin: 08/27/18 16:48 Dose: 650 mg Bupropion HCl (Wellbutrin) 75 mg PO DAILY [facility] Last Admin: 08/27/18 09:28 Dose: 75 mg Carbidopa/Levodopa (Sinemet 10/100) 1 tab PO QID [facility] Last Admin: 08/27/18 21:17 Dose: 1 tab Carbidopa/Levodopa (Sinemet Cr) 2 tab PO BRK [facility] Last Admin: 08/27/18 08:50 Dose: 2 tab Clonazepam (Klonopin) 0.5 mg PO BID [facility] Last Admin: 08/27/18 17:35 Dose: 0.5 mg Cefazolin Sodium/Dextrose (Ancef Iv 1 Gm Duplex) 1 gm in 50 mls @ 100 mls/hr IVPB Q8H [facility]; Protocol Last Admin: 08/27/18 19:00 Dose: 100 mls/hr Vancomycin/Sodium Chloride (Vancomycin 1 Gm/Ns 200 Ml) 1 gm in 200 mls @ 133.333 mls/hr IVPB Q12H [facility]; Protocol Stop: 09/01/18 17:01 Last Admin: 08/27/18 19:46 Dose: 133.333 mls/hr Mupirocin (Bactroban Ointment) 0 gm TOP DAILY [facility] Last Admin: 08/27/18 11:51 Dose: 1 applic Pantoprazole Sodium (Protonix Ec Tab) 40 mg PO DAILY [facility] Last Admin: 08/27/18 09:25 Dose: 40 mg Quetiapine Fumarate (Seroquel) 25 mg PO HS [facility] Last Admin: 08/27/18 21:22 Dose: 25 mg Vitamin A (Vitamin A & D Oint Ud Foilpak) 1 ea TOP BID [facility] Last Admin: 08/27/18 17:42 Dose: 1 ea Zolpidem Tartrate (Ambien) 5 mg PO HS PRN PRN Reason: Insomnia Results - Vital Signs Recent Vital Signs: Last Vital Signs Temp 98.3 F 08/27/18 16:00 Pulse 101 H 08/27/18 16:00 Resp 20 08/27/18 16:00 BP 125/81 08/27/18 16:00 Pulse Ox 95 08/27/18 16:00 - Labs Result Diagrams: 08/26/18 08:50 08/26/18 08:50 Attending/Attestation - Attestation I have personally seen and examined this patient.: Yes I have fully participated in the care of the patient.: Yes I have reviewed all pertinent clinical information: Yes Notes (Text): 08/28/18 00:00 I agree with the assessment and plan. Will resume PD meds and follow up.
[2018-08-20] MEDS ORDERED: Vitamins A & D Oint UD Foilpak TOP STA (14:22)
--- NOTE | 2018-08-20 15:18 | CARD ---
APPROVED REPORT Date of service: 08/19/2018 EKG Measurement Heart [id number] <Conclusion> Sinus tachycardia Otherwise normal ECG
--- NOTE | 2018-08-20 15:47 | CARD ---
APPROVED REPORT Date of service: 08/19/2018 EKG Measurement Heart [id number] <Conclusion> Normal sinus rhythm Rightward axis Borderline ECG
--- NOTE | 2018-08-20 15:48 | CARD ---
APPROVED REPORT Date of service: 08/19/2018 EKG Measurement Heart [id number] <Conclusion> Sinus tachycardia Possible Left atrial enlargement Borderline ECG
[2018-08-20] MEDS: Vitamins A & D Oint UD Foilpak TOP SCH (18:01)
[2018-08-21 05:59] LABS: BASO # 0.1 K/uL (0.0-0.2); BASO % 0.7 % (0.0-2.0); EOS # 0.3 K/uL (0.0-0.7); EOS % 1.9 % (0.0-4.0); HEMOGLOBIN 15.4 g/dL (12.0-18.0); LYMPH # 1.5 K/uL (1.0-4.3); LYMPH % 10.5 % (20.0-40.0); MEAN CELL VOLUME 84.3 fL (80.0-94.0); MEAN CORPUSCULAR HEMOGLOBIN 28.1 pg (27.0-31.0); MEAN CORPUSCULAR HGB CONC 33.3 g/dL (33.0-37.0); MEAN PLATELET VOLUME 7.8 fL (7.2-11.7); MONO # 0.6 K/uL (0.0-0.8); MONO % 4.4 % (0.0-10.0); NEUT # 11.9 K/uL (1.8-7.0); NEUT % 82.5 % (50.0-75.0); NRBC % 0.1 % (0.0-2.0); RBC 5.49 Mil/uL (4.40-5.90); RED CELL DISTRIBUTION WIDTH 16.9 % (11.5-14.5); WHITE BLOOD COUNT 14.5 K/uL (4.8-10.8)
[2018-08-21 06:31] LABS: ALB/GLOB RATIO 1.5 (1.0-2.1); ALBUMIN 4.3 g/dL (3.5-5.0); ALT/SGPT 47 U/L (21-72); AST/SGOT 84 U/L (17-59); BLOOD UREA NITROGEN 20 mg/dL (9-20); CALCIUM 9.4 mg/dl (8.6-10.4); GFR NON-AFRICAN AMERICAN > 60
[2018-08-21 06:56] LABS: OXYCODONE SCREEN negative
[2018-08-21] MEDS: Vitamins A & D Oint UD Foilpak TOP SCH ×2 (09:07→18:02)
[2018-08-21] MEDS: Pantoprazole 40 mg EC Tab PO SCH (09:07)
--- NOTE | 2018-08-21 16:35 | PCM.PSYCH ---
Initial Psychiatric Evaluation - Initial Psychiatric Evaluation Type of Admission: Voluntary Legal Status: Capacity Chief Complaint (in patient's own words): I took a whole bunch of Xanax, Klonopin, Seroquel, Aleve, Flexeril and Sinemet to end up my life. History of Present Illness and Precipitating Events: Patient is a 53 years old, single, unemployed, on disability, male with no previous psychiatric history who was admitted to ICU after a suicidal attempt by overdose with Xanax, Klonopin, Seroquel, Aleve, Flexeril and Sinemet. Patient reported he has Parkinson's disease diagnosed about 6 years ago and since then he is deteriorating. He started feeling stressed with decreased sleep, tired in the morning, no change in appetite or weight but has decreased social interaction, crying at times. According to patient he was always having suicidal ideations but never attempted suicide before. This was his first suicidal attempt. Patient reported remembering incidences before overdose and later found him in the hospital. Patient denied any psychotic, manic or anxiety symptoms. No visit to any psychiatrist before but now considering visiting psychiatrist. Patient is also willing to go to the psychiatry floor once cleared medically. Patient reported drinking alcohol started at 14 years of age, 3-4 times per month, 2-5 shots each time. His last use was 1 day before. At the time of overdose with medications patient was drinking alcohol. Patient also has history of cocaine use in the past. Last used 7 years ago. Patient also smokes cigarettes only while drinking. Patient was born in [place], has 2 years of college education. He is not working for last 2 years, he is on disability. He is never and has no children. He lives with friends. Current Medications: Active Medications Generic Name Dose Route Start Last Admin Trade Name Freq PRN Reason Stop Dose Admin Acetaminophen 650 mg 08/19/18 21:57 08/20/18 14:33 Tylenol 325mg Tab PO 650 mg Q6 PRN Administration for c/o back pain Carbidopa/Levodopa 1 tab 08/20/18 18:00 08/21/18 13:49 Sinemet 10/100 PO 1 tab QID SUMMER Administration Heparin Sodium (Porcine) 5,000 units 08/20/18 14:00 08/21/18 13:49 Heparin SC 5,000 units Q8 SUMMER Administration Mupirocin 0 gm 08/20/18 17:00 08/21/18 09:09 Bactroban Ointment TOP 1 oin DAILY SUMMER Administration Pantoprazole Sodium 40 mg 08/20/18 10:00 08/21/18 09:07 Protonix Ec Tab PO 40 mg DAILY SUMMER Administration Vitamin A 1 ea 08/20/18 18:00 08/21/18 09:07 Vitamin A & D Oint Ud Foilpak TOP 1 ea BID SUMMER Administration Past Psychiatric History - Past Psychiatric History Previous Treatment History: None History of Abuse: None reported History of ETOH/Drug Use: See HPI History of Family Illness: Patient reported he was adopted and does not know family history. Pertinent Medical Hx (Current Medical&Sleep Prob, Allergies): Allergies Allergy/AdvReac Type Severity Reaction Status Date / Time No Known Allergies Allergy Verified 07/21/14 11:25 Carbidopa/Levodopa 50/200 CR [Sinemet CR] 1 tab PO BID 06/28/18 Magnesium Oxide [Magnesium] 800 mg PO DAILY 06/28/18 clonazePAM [Klonopin] 1 mg PO HS 06/28/18 Carbidopa/Levodopa 50/200 CR [Sinemet CR] 1 tab PO Q4 08/19/18 Melatonin 1 tab PO HS PRN 08/19/18 QUEtiapine 25 mg PO DAILY 08/19/18 Parkinson's disease Review of Systems - Psychiatric Psychiatric: As Per HPI, Depression, Suicidal Ideation Mental Status Examination - Personal Presentation Personal Presentation: Looks stated age - Affect Affect: Depressed - Motor Activity Motor Activity: Calm - Reliability in Providing Information Reliability in Providing Information: Fair - Speech Speech: Organized - Mood Mood: Depressed - Formal Thought Process Formal Thought Process: No Impairment - Hallucinations/Delusions Hallucinations: Other (None reported) Delusions: Other - Obsessions/Compulsions Obsessions: None Compulsions: None - Cognitive Functions Orientation: Person, Place, Situation, Time Sensorium: Alert Attention/Concentration: Attentive Abstract Thinking: [place] Estimate of Intelligence: Average Judgement: Imparied, as evidence by: Lack of insight into illness Memory: Remote intact, as evidenced by: Ability to recall historical events - Risk Risk: Withdrawal, Diminished functioning - Strength & Assets Inventory Strength & Assets Inventory: Education, Cooperative - Limitations Limitations: Other DSM 5 DX - DSM 5 DSM 5 Diagnosis: 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 Supportive therapy. We will start sertraline 50 mg daily. Patient can be transferred to psych floor once cleared medically. - Smoking Cessation Smoking Cessation Initiated: No Reason for not providing: Does not want nicotine patch
--- NOTE | 2018-08-21 16:42 | PQF ---
PROVIDER RESPONSE TEXT: Call neurologist , psyche REVIEWER QUERY TEXT: Clarification of Clinical Diagnostic Findings Please clarify documentation or clinical relevance for the clinical / diagnostic findings . Toxic Encephalopathy in the setting of a Drug Overdose manifested by Altered Mental Status requiring supportive care. -Other Explanation -Unable to Determine . The patient's Clinical Indicators include: Clinical Findings: Altered Mental Status, Prescription Drug Overdose with suicidal Ideation. Treatment : Supportive Care Risk Factor : Drug Overdose Query created by: Nano Monk on 08/19/2018 5:46 PM Electronically signed by: Janee Mark MD 08/21/2018 4:39 PM
--- NOTE | 2018-08-21 17:01 | CARD ---
APPROVED REPORT Date of service: 08/20/2018 EKG Measurement Heart [id number] <Conclusion> Normal sinus rhythm Normal ECG
--- NOTE | 2018-08-21 23:17 | PN ---
DATE: 08/21/2018 SUBJECTIVE: The patient is a 53-year-old male. The patient was seen and examined at the bedside on 08/21/2018. Looking comfortable. Has problems with walking. Has history of parkinsonism. Awake and alert. No nausea, vomiting, or diarrhea. No hematuria or hematochezia. No headache or dizziness. No chest pain or palpitation. PHYSICAL EXAMINATION: VITAL SIGNS: Temperature 98.4, pulse 109, blood pressure 137/87, respiratory rate 20. HEENT: Head, normocephalic and atraumatic. Eyes, PERRLA. Extraocular muscles intact. Conjunctivae clear. Nose patent. Mucous membranes moist. NECK: Supple. No carotid bruits. No JVD or thyromegaly. CHEST: Bilaterally symmetrical. HEART: S1 and S2 positive. LUNGS: Clear to auscultation. ABDOMEN: Soft. Bowel sounds are positive. No organomegaly. EXTREMITIES: No edema, no cyanosis. NEUROLOGIC: The patient is awake and alert. Follows simple commands. MEDICATIONS: Bactroban, heparin, Protonix, carbidopa/levodopa, acetaminophen, vitamin E, and Zoloft. LABORATORY DATA: White blood cells 14.5, hemoglobin 15.4, hematocrit 46.3, platelets 554. Sodium 138, potassium 4.7, BUN 20, creatinine 0.8. AST 84. ASSESSMENT AND PLAN: Mr. Chele Jain is a 53-year-old male with leukocytosis, history of electrolyte imbalance, improved. Drug screen is positive for cannabinoid. Seen by Dr. Aaron Hannon, psychiatrist; Dr. Samayoa, mail sorter and delivery; and neurologist. History of drug abuse. Has a rash on the sacrum . History of parkinsonism. Monitoring electrolytes. Need good physical therapy. Rule out sepsis. Getting antibiotics. Rocephin and azithromycin given. bactr. cream on the sacrum. Deep venous thrombosis and gastrointestinal prophylaxis. The patient is not able to do his activities of daily living, may need a good rehab. Continue acetaminophen, ibuprofen, diphenhydramine. The patient is alert and oriented x3. Stable to transfer to Psychiatry. Gastrointestinal and deep venous thrombosis prophylaxis given. Repeat labs. We will follow. Janee Mark MD [facility] # [id number] [id number]
[2018-08-22 08:40] LABS: BASO # 0.2 K/uL (0.0-0.2); BASO % 1.2 % (0.0-2.0); EOS # 0.2 K/uL (0.0-0.7); EOS % 1.6 % (0.0-4.0); HEMOGLOBIN 15.3 g/dL (12.0-18.0); LYMPH # 1.5 K/uL (1.0-4.3); LYMPH % 9.6 % (20.0-40.0); MEAN CELL VOLUME 83.3 fL (80.0-94.0); MEAN CORPUSCULAR HEMOGLOBIN 28.3 pg (27.0-31.0); MEAN PLATELET VOLUME 7.4 fL (7.2-11.7); MONO # 0.6 K/uL (0.0-0.8); MONO % 3.9 % (0.0-10.0); NEUT # 12.8 K/uL (1.8-7.0); NEUT % 83.7 % (50.0-75.0); NRBC % 0.1 % (0.0-2.0); PLATELET COUNT 553 K/uL (130-400); RBC 5.41 Mil/uL (4.40-5.90); RED CELL DISTRIBUTION WIDTH 16.9 % (11.5-14.5); WHITE BLOOD COUNT 15.3 K/uL (4.8-10.8)
--- NOTE | 2018-08-22 08:44 | PCM.PYCHPN ---
Psychiatric Progress Note - Psychiatric Progress Note Patient seen today, length of contact: 15 minutes Patient Chief Complaint: I WANT TO GO HOME. WHAT I DID WAS VERY SELFISH, I DID NOT REALIZE HOW MANY PEOPLE CARE FOR ME Problems Identified/Issues Discussed: PT OVERDOSED SEVERAL DAYS ON ALL HIS MEDICATIONS. PTLEFT A SUICIDE NOTE WHICH READS" I'M SORRY i COULDN'T STAND ANOTHER DAY OF IT-I LOVE YOU ALL." PT CURRENTLY DENIES THAT HE IS SUICIDAL AND WANTS TO GO HOME. PT HAS PARKINSONISM THAT HAS WORSEN IN THE LAST SEVERAL MONTHS. PT LIVES WITH FRIENDS. HIS SOCIALK AND MEDICAL SITUATION HAS NOT CHANGED. IT IS THE SAME S BEFORE THE SUICIDE ATTEMPT. PT WAS OFFERED TO SIGN IN VOLUNTARILY TO THE PSYCHIATRIC UNIT AT [facility], PT REFUSED. CARDIAC SURGEON EXPLAINED HIS RIGHTS IF HE SIGNED INTO THE UNIT VOLUNTARILY. THE SCREENING PROCESS WAS ALSO EXPLAINED TO THE PT BY THIS CARDIAC SURGEON. PT STATED HE WAS WILLING TO TALK WITH A THERAPIST. PTSTTED HE WAS RECENTLY PRESCRIBED SEROQUEL TO HELP WITH HIS INSOMNIA. PT RELATED TO THIS CARDIAC SURGEON THAT HIS HEALTH DIRECTOR OF VIDEO ANALYTICS WHO IS AN RN TOLD HIM THAT SEROQUEL COULD CAUSE DARK THOUGHTS PT HAS NO PREVIOUS PSYCH HISTORY. HOWEVER HE WROTE [facility]ICIDAL NOTE AND OVERDOSED ON ALL THE MEDICATIONS HE HAD AT HIS DISPOSAL PT DOES NOT WANT TO SIGN VOLUNTARILY INTO THE PSYCH UNIT; THIS CARDIAC SURGEON THINKS THAT TO BE PRUDENT THE PT SHOULD BE SCREENED FOR INVOLUNTARILY COMMITMENT Medical Problems: PARKINSONISM Diagnostic Results: REVIEWED Medication Change: No Medical Record Reviewed: Yes Mental Status Examination - Cognitive Function Orientation: Person, Place, Situation, Time Memory: Intact Attention: WNL Concentration: WNL Association: WNL Fund of Knowledge: WNL - Mood Mood: Depressed - Affect Affect: Constricted, Depressed - Speech Speech: Appropriate - Formal Thought Process Formal Thought Process: No Impairment - Suicidal Ideation Suicidal Ideation: No - Homicidal Ideation Homicidal Ideation: No Goal/Treatment Plan - Goal/Treatment Plan Need for Continued Stay: Discharge may exacerbated symptoms Progress Toward Problem(s) and Goals/Treatment Plan: PT WILL BE SCREENED FOR COMMITMENT Estimated Date of D/C: 08/23/18 - Smoking Cessation Smoking Cessation Initiated: No
[2018-08-22 08:51] LABS: ALB/GLOB RATIO 1.8 (1.0-2.1); ALBUMIN 4.3 g/dL (3.5-5.0); ALT/SGPT 61 U/L (21-72); AST/SGOT 59 U/L (17-59); BLOOD UREA NITROGEN 18 mg/dL (9-20); CALCIUM 9.1 mg/dl (8.6-10.4); GFR NON-AFRICAN AMERICAN > 60
[2018-08-22] MEDS: Pantoprazole 40 mg EC Tab PO SCH (09:44)
[2018-08-22] MEDS: Vitamins A & D Oint UD Foilpak TOP SCH ×2 (09:44→18:29)
[2018-08-22 11:13] LABS: BANDS 3 % (0-2); REACTIVE LYMPHOCYTES 2 % (0-0); TOTAL CELLS COUNTED 100
[2018-08-22 11:14] LABS: LYMPHOCYTE 10 % (20-40); MONOCYTE 4 % (0-10); NEUTROPHIL 81 % (50-75); PLATELET ESTIMATE INCREASED (NORMAL)
[2018-08-22 11:15] LABS: ANISOCYTOSIS SLIGHT; LARGE PLATELETS PRESENT; POIKILOCYTOSIS SLIGHT
[2018-08-22 11:16] LABS: OVALOCYTES SLIGHT
--- NOTE | 2018-08-22 14:48 | PCM.BM ---
<HyacinthJenniferivelisse Morales - Last Filed: 08/22/18 14:46> Treatment Plan Problems - Problems identified on initial assessmt Depression Date Initiated: 08/22/18 Time Initiated: 14:46 Assessment reference: NA Status: Active Treatment assets and liabiliti Patient Assests: cooperative Patient Liabilities: medical problems - Milieu Protocol Maintain good personal hygiene: daily Encourage regular showers, daily Remind patient to perform daily oral care, daily Assist patient to perform ADL's Maintain personal safety: every shift Educate patient to report safety concerns to staff, every shift Monitor environment for contraband/sharps Medication safety: Monitor for expected outcome, potential side effects: every shift, Assess barriers to learning: every shift, Assess readiness for medication education: every shift Milieu Narrative: PT WILL BE SCREENED FOR COMMITMENT Discharge/Continuing Care - Treatment Team Participation Patient/Family/SO Statement: PT WILL BE SCREENED FOR COMMITMENT <Geraldo Patel - Last Filed: 08/23/18 21:49> - Diagnosis (1) Major depressive disorder, recurrent severe without psychotic features Status: Acute Interventions: 08/23/18 21:48 * Assess/adjust medications daily and /or as needed * See patient on an individual basis 7x/week to assess symptoms of depression * Monitor for side effects & effectiveness of medications *
--- NOTE | 2018-08-23 02:04 | PN ---
DATE: 08/22/2018 SUBJECTIVE: The patient is a 53-year-old male. The patient was seen and examined at bedside, looking comfortable except little bit anxious. No nausea, vomiting, or diarrhea. No hematuria or hematochezia. No headache or dizziness. No chest pain or palpitations. In the beginning, he did not want to go to psych department. Now, he agrees to go to the psych department. PHYSICAL EXAMINATION: VITAL SIGNS: Temperature 97.1, pulse 104, blood pressure 130/91, and respiratory rate 18. HEENT: Head is normocephalic and atraumatic. Eyes PERRLA. Extraocular movements are intact. Conjunctivae clear. Nose patent. Mucous membranes are moist. NECK: Supple. No carotid bruits, JVD, or thyromegaly. CHEST: Bilaterally symmetrical. HEART: S1 and S2 positive. LUNGS: Clear to auscultation. ABDOMEN: Soft. Bowel sounds are positive. No organomegaly. EXTREMITIES: No edema. No cyanosis. NEUROLOGIC: The patient is awake and alert. Follows simple commands. MEDICATIONS: Ambien, Bactroban, Klonopin, Protonix, Sinemet, Tylenol, and Zoloft. LABORATORY DATA: White blood cells 15.3, hemoglobin 15.3, hematocrit 45.1, and platelets 563. Sodium 138, potassium 4.5, BUN noted , creatinine 0.8, and glucose 94. ASSESSMENT AND PLAN: Mr. Chele Jain is a 53-year-old male with leukocytosis, thrombocytosis, hypochloremia, cannabinoid positive in the toxicology. Has history of parkinsonism and changed the doses of his parkinsonism medication, Sinemet. History of drug abuse. Has a rash in the sacral area, applying medication locally. Monitoring electrolytes. Psychiatry is on the case. Getting antibiotics, Rocephin and azithromycin. Deep vein thrombosis and gastrointestinal prophylaxis given. Seen by magazine feeder. Talked to psych. She was convincing the patient to go the psychiatric department. The patient was refusing. The patient was on one-to-one observation. Rule out sepsis. He was on heparin, but we discontinued that because we are waiting the patient to go to Psychiatry. We will follow up. Janee Mark MD MTDD
--- NOTE | 2018-08-23 06:11 | PN ---
DATE: 08/20/2018 SUBJECTIVE: The patient is a 53-year-old male. The patient was seen and examined at bedside on 08/20/2018. Conscious level is increasing. Now, he is oriented x3 but does not remember what happened yesterday. Complaining of rash on the sacral area. Denies chest pain or shortness of breath. No hematuria or hematochezia. No headache or dizziness. PHYSICAL EXAMINATION: VITAL SIGNS: Temperature 98.8, pulse 94, respiratory rate 11, blood pressure 130/86, pulse oximetry 92. HEENT: Head is normocephalic and atraumatic. Eyes, PERRLA. Extraocular movements intact. Conjunctivae clear. Nose patent. Mucous membranes moist. NECK: Supple. No carotid bruits. No JVD or thyromegaly. CHEST: Bilaterally symmetrical. HEART: S1 and S2 positive. LUNGS: Clear to auscultation. ABDOMEN: Soft. Positive bowel sounds. No organomegaly. EXTREMITIES: No edema, no cyanosis. NEUROLOGIC: The patient is awake and alert. Moving all four extremities. No focal deficits. MEDICATIONS: Tylenol, Protonix, vitamin A. LABORATORY DATA: White blood cells 14.7, hemoglobin 15.4, hematocrit 45.1, platelets 482. Sodium 140, potassium 4.7, BUN 50, creatinine 0.9. ASSESSMENT AND PLAN: Mr. Chele Jain is a 53-year-old male, status post suicide attempt. Received in the emergency department. Stable for transfer to Psychiatry. Flexeril, ibuprofen and diphenhydramine overdose. Altered mental status is improving. The patient is able to recall everyone. The patient is able to provide limited history because of altered mental status. CAT scan of the head is negative. Maintaining SpO2 more than 90, nasal cannula as needed. Cardio, electrocardiogram x3. Gastrointestinal and deep venous thrombosis prophylaxis given. Repeat labs. We will follow up. Janee Mark MD MTDMginon
[2018-08-23 08:01] LABS: BASO # 0.2 K/uL (0.0-0.2); EOS # 0.2 K/uL (0.0-0.7); EOS % 1.6 % (0.0-4.0); HEMOGLOBIN 15.4 g/dL (12.0-18.0); LYMPH # 1.5 K/uL (1.0-4.3); LYMPH % 9.7 % (20.0-40.0); MEAN CELL VOLUME 84.1 fL (80.0-94.0); MEAN CORPUSCULAR HEMOGLOBIN 28.6 pg (27.0-31.0); MEAN PLATELET VOLUME 7.6 fL (7.2-11.7); MONO # 0.6 K/uL (0.0-0.8); MONO % 3.7 % (0.0-10.0); NEUT # 12.6 K/uL (1.8-7.0); NRBC % 0.1 % (0.0-2.0); PLATELET COUNT 514 K/uL (130-400); RED CELL DISTRIBUTION WIDTH 16.4 % (11.5-14.5)
[2018-08-23 08:17] LABS: ALB/GLOB RATIO 1.6 (1.0-2.1); ALBUMIN 4.1 g/dL (3.5-5.0); ALT/SGPT 32 U/L (21-72); AST/SGOT 49 U/L (17-59); BLOOD UREA NITROGEN 17 mg/dL (9-20); CALCIUM 9.5 mg/dl (8.6-10.4); GFR NON-AFRICAN AMERICAN > 60
[2018-08-23] MEDS: Pantoprazole 40 mg EC Tab PO SCH (09:42)
[2018-08-23 09:45] LABS: BANDS 3 % (0-2); EOSINOPHIL 1 % (0-4); LYMPHOCYTE 10 % (20-40); MONOCYTE 5 % (0-10); MYELOCYTE 1 % (0-0); NEUTROPHIL 80 % (50-75); TOTAL CELLS COUNTED 100
[2018-08-23 09:46] LABS: ANISOCYTOSIS SLIGHT; PLATELET ESTIMATE INCREASED (NORMAL)
[2018-08-23] MEDS: Vitamins A & D Oint UD Foilpak TOP SCH ×2 (10:05→17:11)
--- NOTE | 2018-08-23 21:47 | PCM.PYCHPN ---
Psychiatric Progress Note - Psychiatric Progress Note Patient seen today, length of contact: 15 minutes Patient Chief Complaint: I' m feeling little better Problems Identified/Issues Discussed: Patient seen and evaluated, chart reviewed and discussed with the nurse. He reports some improvement in his depressed mood and anxiety. He denies any auditory or visual hallucinations or any paranoia. Patient is compliant with medications and denies any side effects. Symptoms are improving but need more time to stabilize. Support and psychoeducation given. Medication Change: No Medical Record Reviewed: Yes Mental Status Examination - Cognitive Function Orientation: Person, Place, Situation, Time Memory: Intact Attention: WNL Concentration: Poor Association: WNL Fund of Knowledge: Poor - Mood Mood: Depressed, Anxious - Affect Affect: Constricted, Depressed - Speech Speech: Appropriate - Formal Thought Process Formal Thought Process: No Impairment - Suicidal Ideation Suicidal Ideation: No - Homicidal Ideation Homicidal Ideation: No Goal/Treatment Plan - Goal/Treatment Plan Need for Continued Stay: Discharge may exacerbated symptoms, Severe functional impairment Progress Toward Problem(s) and Goals/Treatment Plan: Major Depressive disorder recurrent severe without psychotic features -CBT -Psychotherapy -Supportive therapy, group therapy, individual therapy -Atarax 25 mg PO Q6 prn -Increase Sertraline to 100 mg PO Daily -d/c Ambien -Start Trazodone 50 mg PO QHS prn -Klonopin 0.5 mg PO BID Estimated Date of D/C: 08/26/18 - Smoking Cessation Smoking Cessation Initiated: No
--- NOTE | 2018-08-24 05:51 | PN ---
DATE: 08/23/2018 SUBJECTIVE: The patient was seen and examined at the beside on 08/23/2018 and looking comfortable. According to him, feeling a little better, having his lunch, still tremors when he is walking, but no fever, no chills. No nausea, vomiting, or diarrhea. No headache. No dizziness. No chest pain. No palpitations. PHYSICAL EXAMINATION: VITAL SIGNS: Temperature 99.1, pulse 111, blood pressure 131/71, and respiratory rate 20. HEENT: Head normocephalic and atraumatic. Eyes, PERRLA. Extraocular muscles intact. Conjunctivae clear. Nose patent. Mucous membranes moist. NECK: Supple. No carotid bruits. No JVD or thyromegaly. CHEST: Bilaterally symmetrical. HEART: S1 and S2 positive. LUNGS: Clear to auscultation. ABDOMEN: Soft. Bowel sounds present. No organomegaly. EXTREMITIES: No edema. No cyanosis. NEUROLOGIC: The patient is awake and alert. Moving all four extremities. No focal deficits. MEDICATIONS: Bactroban ointment, trazodone, Fluzone, Klonopin, Protonix, Sinemet, Tylenol, vitamin A, and Zoloft. LABORATORY DATA: White blood cell 15, hemoglobin 15.4, hematocrit 45.1, and platelets 514. Sodium 138, potassium 4.2, BUN 70, creatinine 0.8, and glucose 90. ASSESSMENT AND PLAN: Mr. Chele Jain is a 53-year-old male with leukocytosis, thrombocytosis. His abnormal liver function test has got better. Toxicology was positive for cannabinoid; history of parkinsonism; has history of suicidal attempts, that is why he was admitted after taken care in the medical floor and now transferred to Psych Behavioral Health Department. Seen by Dr. Geraldo Patel, who is a psychiatrist. The patient has severe functional impairment, major depressive disorder, recurrent and severe without psychotic features; psycho therapy, supportive therapy, group therapy, and individual therapy, Atarax. Discontinue Ambien. Started trazodone. Added Klonopin by Dr. Geraldo Patel. Add Sinemet for parkinsonism. Has a rash in the sacral area, applying medication locally. Monitoring electrolytes. The patient accepted getting Rocephin and azithromycin. Gastrointestinal and deep vein thrombosis prophylaxis. Repeat labs. We will follow up. Janee Mark MD MTDD
[2018-08-24] MEDS: Pantoprazole 40 mg EC Tab PO SCH (10:02)
[2018-08-24] MEDS: Vitamins A & D Oint UD Foilpak TOP SCH ×2 (10:06→17:48)
--- NOTE | 2018-08-24 12:34 | PCM.PYCHPN ---
Psychiatric Progress Note - Psychiatric Progress Note Patient seen today, length of contact: 15 minutes Patient Chief Complaint: I' m feeling depressed.' Problems Identified/Issues Discussed: The patient is seen, chart reviewed, case discussed with staff. Patient states that he has significant improvement in his movements and physically feels better. He can walk and his range of motion is greatly increased. He reports a decrease in his dyskinesia that he can walk, sit up, and sit down on a chair much easier today. Patient denies feeling depressed or anxious. He thinks the medications are working well for him. He only complains about his sleep. The patient is compliant with medications and reports no side-effects. Symptoms are improving but needs more time to stabilize. Pt attends groups and activities. Support given, psycho-education provided. Medication Change: No Medical Record Reviewed: Yes Mental Status Examination - Cognitive Function Orientation: Person, Place, Situation, Time Memory: Intact Attention: WNL Concentration: Poor Association: WNL Fund of Knowledge: Poor - Mood Mood: Depressed, Anxious - Affect Affect: Constricted, Depressed - Speech Speech: Appropriate - Formal Thought Process Formal Thought Process: No Impairment - Suicidal Ideation Suicidal Ideation: No - Homicidal Ideation Homicidal Ideation: No Goal/Treatment Plan - Goal/Treatment Plan Need for Continued Stay: Discharge may exacerbated symptoms, Severe functional impairment Progress Toward Problem(s) and Goals/Treatment Plan: Major Depressive disorder recurrent severe without psychotic features -CBT -Psychotherapy -Supportive therapy, group therapy, individual therapy -Atarax 25 mg PO Q6 prn -Increase Sertraline to 100 mg PO Daily -d/c Ambien -Start Trazodone 50 mg PO QHS prn -Klonopin 0.5 mg PO BID Estimated Date of D/C: 08/26/18
[2018-08-24 13:47] LABS: BASO # 0.1 K/uL (0.0-0.2); BASO % 0.4 % (0.0-2.0); EOS # 0.4 K/uL (0.0-0.7); EOS % 2.1 % (0.0-4.0); HEMOGLOBIN 15.4 g/dL (12.0-18.0); LYMPH # 1.5 K/uL (1.0-4.3); MEAN CELL VOLUME 83.8 fL (80.0-94.0); MEAN CORPUSCULAR HEMOGLOBIN 28.4 pg (27.0-31.0); MEAN CORPUSCULAR HGB CONC 33.9 g/dL (33.0-37.0); MEAN PLATELET VOLUME 7.5 fL (7.2-11.7); MONO # 0.5 K/uL (0.0-0.8); MONO % 3.1 % (0.0-10.0); NEUT # 14.2 K/uL (1.8-7.0); NEUT % 85.4 % (50.0-75.0); NRBC % 0.1 % (0.0-2.0); PLATELET COUNT 584 K/uL (130-400); RBC 5.43 Mil/uL (4.40-5.90); RED CELL DISTRIBUTION WIDTH 16.3 % (11.5-14.5); WHITE BLOOD COUNT 16.7 K/uL (4.8-10.8)
[2018-08-24 13:58] LABS: ALB/GLOB RATIO 1.8 (1.0-2.1); ALBUMIN 4.4 g/dL (3.5-5.0); ALT/SGPT 19 U/L (21-72); AST/SGOT 39 U/L (17-59); BLOOD UREA NITROGEN 19 mg/dL (9-20); CALCIUM 9.5 mg/dl (8.6-10.4); GFR NON-AFRICAN AMERICAN > 60
[2018-08-24 14:30] LABS: EOSINOPHIL 1 % (0-4); LYMPHOCYTE 6 % (20-40); MONOCYTE 7 % (0-10); NEUTROPHIL 86 % (50-75); TOTAL CELLS COUNTED 100
[2018-08-24 14:31] LABS: PLATELET ESTIMATE INCREASED (NORMAL)
[2018-08-24 14:32] LABS: ANISOCYTOSIS SLIGHT
[2018-08-24] MEDS: Carbidopa/Levodopa 25/100 CR PO SCH (16:43)
[2018-08-24] MEDS ORDERED: Divalproex 500 mg DR Tab PO SCH (18:00)
--- NOTE | 2018-08-24 21:59 | CP.PCM.CON ---
<Damien Reynolds - Last Filed: 08/24/18 21:45> History of Present Illness - History of Present Illness History of Present Illness: PGY1 Neurology Consult Note for Dr. Rodriguez Patient is a 53-year-old male with past medical history of Parkinsons Disease and depression who was referred to us by . Patient has history of suicidal attempt on 08/19/18, and was closely monitored in ICU until being transferred to psychiatric unit for treatment. Please see full chart for complete summary of details. Patient says he follows Dr. Singh at [facility], and that he is on the path of undergoing brain stimulation. Patient says that he thinks he needs to cut back on his levodopa due to having experienced some visual hallucinations recently. ROS is significant for dyskinesia, bradykinesia, rigitidy, and shuffling gait. Patient otherwise denies chest pain, shortness of breath, headache, dizziness, neck pain, palpitations, vision disturbances. Of note, patient was restarted on 10/100 Carbidopa/levodopa PO QID, increased to 25/100 Carbidopa/levodopa QID, and the patient states that he thinks he needs to increase the dose because he gets rigidity and tremors 3 hours after each dose. Review of Systems - Review of Systems All systems: reviewed and no additional remarkable complaints except - Constitutional Constitutional: As Per HPI - EENT Eyes: As Per HPI Ears: As Per HPI Nose/Mouth/Throat: As Per HPI - Cardiovascular Cardiovascular: As Per HPI - Respiratory Respiratory: As Per HPI - Musculoskeletal Musculoskeletal: As Per HPI - Neurological Neurological: As Per HPI - Psychiatric Psychiatric: As Per HPI - Endocrine Endocrine: As Per HPI Past Patient History - Tetanus Immunizations Tetanus Immunization: Unknown - Past Medical History & Family History Past Medical History?: Yes - Past Social History Smoking Status: Light Smoker < 10 Cigarettes Daily - CARDIAC Hx Hypertension: Yes - PULMONARY Hx Respiratory Disorders: No - NEUROLOGICAL Hx Parkinson's Disease: Yes - HEENT Hx HEENT Problems: No - RENAL Hx Chronic Kidney Disease: No - ENDOCRINE/METABOLIC Hx Endocrine Disorders: No - HEMATOLOGICAL/ONCOLOGICAL Hx Human Immunodeficiency Virus (HIV): No - INTEGUMENTARY Hx Dermatological Problems: No - MUSCULOSKELETAL/RHEUMATOLOGICAL Hx Musculoskeletal Disorders: No Hx Falls: No - GASTROINTESTINAL Hx Gastrointestinal Disorders: No - GENITOURINARY/GYNECOLOGICAL Hx Genitourinary Disorders: No - PSYCHIATRIC Hx Substance Use: Yes - SURGICAL HISTORY Hx Surgeries: No - ANESTHESIA Hx Anesthesia: No Meds Allergies/Adverse Reactions: Allergies Allergy/AdvReac Type Severity Reaction Status Date / Time No Known Allergies Allergy Verified 07/21/14 11:25 - Medications Medications: Current Medications Acetaminophen (Tylenol 325mg Tab) 650 mg PO Q6 PRN PRN Reason: for c/o back pain Last Admin: 08/20/18 14:33 Dose: 650 mg Carbidopa/Levodopa (Sinemet Cr) 2 tab PO DAILY [facility] Last Admin: 08/24/18 16:43 Dose: 2 tab Carbidopa/Levodopa (Sinemet 10/100) 1 tab PO QID [facility] Last Admin: 08/24/18 17:47 Dose: 1 tab Clonazepam (Klonopin) 0.5 mg PO BID [facility] Last Admin: 08/24/18 17:47 Dose: 0.5 mg Influenza Virus Vaccine (Fluzone Quad [id number]) 60 mcg IM .ONCE ONE Stop: 08/25/18 10:01 Mupirocin (Bactroban Ointment) 0 gm TOP DAILY [facility] Last Admin: 08/24/18 10:06 Dose: 1 applic Pantoprazole Sodium (Protonix Ec Tab) 40 mg PO DAILY [facility] Last Admin: 08/24/18 10:02 Dose: 40 mg Pneumococcal Polyvalent Vaccine (Pneumovax 23 Vaccine) 0.5 ml IM .ONCE ONE Stop: 08/25/18 16:55 Sertraline HCl (Zoloft) 100 mg PO DAILY [facility] Last Admin: 08/24/18 10:01 Dose: 100 mg Trazodone HCl (Desyrel) 50 mg PO HS [facility] Last Admin: 08/23/18 22:11 Dose: Not Given Vitamin A (Vitamin A & D Oint Ud Foilpak) 1 ea TOP BID [facility] Last Admin: 08/24/18 17:48 Dose: Not Given Physical Exam - Additional Findings Additional findings: - Constitutional Appears: Non-toxic, No Acute Distress - Head Exam Head Exam: ATRAUMATIC, NORMAL INSPECTION, NORMOCEPHALIC - Eye Exam Eye Exam: EOMI, Normal appearance, PERRL Pupil Exam: NORMAL ACCOMODATION - ENT Exam ENT Exam: Mucous Membranes Moist, Normal Exam - Neurological Exam Neurological exam: Alert, CN II-XII Intact, Oriented x3, Reflexes Normal Additional comments: Positive for: bradykinesia, dyskinesia, cogwheel rigidity, and shuffling gait - Expanded Neurological Exam Expanded Neurological exam: Tremor Patient oriented to: person, place, time Speech: Fluid Speech Cranial nerves: EOM's Intact: Normal, Facial Palsey w/Forehead Movement: Normal, Facial Palsey w/o Forehead Movement: Normal, Facial Sensation: Normal, Gag Reflex: Normal, Nystagmus: Normal, Tongue Deviation: Normal Upper motor neuron: Pronator Drift: Normal Neuro motor strength exam: Left Upper Extremity: 5, Right Upper Extremity: 5, Left Lower Extremity: 5, Right Lower Extremity: 5 - Psychiatric Exam Psychiatric exam: Normal Mood Additional comments: Flat facies appreciated Results - Vital Signs Recent Vital Signs: Last Vital Signs Temp 99.1 F 08/22/18 16:01 Pulse 106 H 08/24/18 16:43 Resp 20 08/23/18 06:23 BP 135/87 08/24/18 16:43 Pulse Ox 98 08/23/18 06:23 - Labs Result Diagrams: 08/24/18 13:41 08/24/18 13:41 Labs: Laboratory Results - last 24 hr 08/24/18 08/24/18 13:41 13:41 WBC 16.7 H RBC 5.43 Hgb 15.4 Hct 45.5 MCV 83.8 MCH 28.4 MCHC 33.9 RDW 16.3 H Plt Count 584 H MPV 7.5 Neut % (Auto) 85.4 H Lymph % (Auto) 9.0 L Benzie % (Auto) 3.1 Eos % (Auto) 2.1 Baso % (Auto) 0.4 Neut # (Auto) 14.2 H Lymph # (Auto) 1.5 Benzie # (Auto) 0.5 Eos # (Auto) 0.4 Baso # (Auto) 0.1 Neutrophils % (Manual) 86 H Lymphocytes % (Manual) 6 L Monocytes % (Manual) 7 Eosinophils % (Manual) 1 Platelet Estimate Increased H Anisocytosis (manual) Slight Sodium 139 Potassium 4.5 Chloride 99 Carbon Dioxide 28 Anion Gap 17 BUN 19 Creatinine 0.9 Est GFR ( Amer) > 60 Est GFR (Non-Af Amer) > 60 Random Glucose 109 Calcium 9.5 Total Bilirubin 0.7 AST 39 ALT 19 L D Alkaline Phosphatase 45 Total Protein 6.8 Albumin 4.4 Globulin 2.4 Albumin/Globulin Ratio 1.8 Assessment & Plan - Assessment and Plan (Free Text) Assessment: Patient is a 53-year-old male with past medical history of Parkinsons Disease and depression who is currently voluntarily in the psychiatric unit for suicidal attempt. Parkinson's Disease - Most recent CT head without contrast: negative for acute intracranial abnormalities - Patient restarted on Sinemet 25/100 QID --> discontinue - Start Carbidopa/Levodopa 10/100 1 tab PO QID - Start Carbidopa/Levodopa 25/100 CR 2 tabs PO Daily - Recommend obtaining SANDI scan as out-patient - Patient is to follow-up with Dr. Singh regarding brain stimulation and SANDI scan Please do not hesitate to call back with any new developments, data updates or questions. Thank you for the opportunity to participate in the care of this patient. Patient seen and case discussed with Dr. Jennifer Reynolds PGY1 <Anthony Rodriguez - Last Filed: 08/28/18 00:07> Meds - Medications Medications: Current Medications Acetaminophen (Tylenol 325mg Tab) 650 mg PO Q6 PRN PRN Reason: for c/o back pain Last Admin: 08/27/18 16:48 Dose: 650 mg Bupropion HCl (Wellbutrin) 75 mg PO DAILY [facility] Last Admin: 08/27/18 09:28 Dose: 75 mg Carbidopa/Levodopa (Sinemet 10/100) 1 tab PO QID [facility] Last Admin: 08/27/18 21:17 Dose: 1 tab Carbidopa/Levodopa (Sinemet Cr) 2 tab PO BRK [facility] Last Admin: 08/27/18 08:50 Dose: 2 tab Clonazepam (Klonopin) 0.5 mg PO BID [facility] Last Admin: 08/27/18 17:35 Dose: 0.5 mg Cefazolin Sodium/Dextrose (Ancef Iv 1 Gm Duplex) 1 gm in 50 mls @ 100 mls/hr IVPB Q8H [facility]; Protocol Last Admin: 08/27/18 19:00 Dose: 100 mls/hr Vancomycin/Sodium Chloride (Vancomycin 1 Gm/Ns 200 Ml) 1 gm in 200 mls @ 133.333 mls/hr IVPB Q12H [facility]; Protocol Stop: 09/01/18 17:01 Last Admin: 08/27/18 19:46 Dose: 133.333 mls/hr Mupirocin (Bactroban Ointment) 0 gm TOP DAILY [facility] Last Admin: 08/27/18 11:51 Dose: 1 applic Pantoprazole Sodium (Protonix Ec Tab) 40 mg PO DAILY [facility] Last Admin: 08/27/18 09:25 Dose: 40 mg Quetiapine Fumarate (Seroquel) 25 mg PO HS [facility] Last Admin: 08/27/18 21:22 Dose: 25 mg Vitamin A (Vitamin A & D Oint Ud Foilpak) 1 ea TOP BID [facility] Last Admin: 08/27/18 17:42 Dose: 1 ea Zolpidem Tartrate (Ambien) 5 mg PO HS PRN PRN Reason: Insomnia Results - Vital Signs Recent Vital Signs: Last Vital Signs Temp 98.3 F 08/27/18 16:00 Pulse 101 H 08/27/18 16:00 Resp 20 08/27/18 16:00 BP 125/81 08/27/18 16:00 Pulse Ox 95 08/27/18 16:00 - Labs Result Diagrams: 08/26/18 08:50 08/26/18 08:50 Attending/Attestation - Attestation I have personally seen and examined this patient.: Yes I have fully participated in the care of the patient.: Yes I have reviewed all pertinent clinical information: Yes Notes (Text): 08/28/18 00:07 I agree with the assessment and plan. Will continue managing PD.
[2018-08-25] MEDS ORDERED: Carbidopa/Levodopa 50/200 CR PO SCH (08:00)
--- NOTE | 2018-08-25 08:31 | PN ---
DATE: 08/23/2018 SUBJECTIVE: The patient was seen and examined at the bedside on 08/23/2018, looking comfortable. As per patient, he is feeling better. His walking is getting better. His stiffness is getting better. He is attending different type of activities in the psych department. No fever, no chills. No nausea, vomiting, or diarrhea. No hematuria or hematochezia. No swelling of the legs. No chest pain or palpitation. PHYSICAL EXAMINATION: VITAL SIGNS: Temperature 98.6 , blood pressure 135/87, pulse oximetry . HEENT: Head normocephalic, atraumatic. Eyes PERRLA. Extraocular movements intact. Conjunctivae clear. Nose patent. Mucous membranes moist. NECK: Supple. No carotid bruits. No JVD or thyromegaly. CHEST: Bilaterally symmetrical. HEART: S1, S2 positive. LUNGS: Clear to auscultation. ABDOMEN: Soft. Bowel sounds present. No organomegaly. EXTREMITIES: No edema, no cyanosis. NEUROLOGIC: The patient is awake, alert. Moving all four extremities. No focal deficits. MEDICATIONS: Bactroban, trazodone, Fluzone, Klonopin, Pneumovax, Protonix, Sinemet, Tylenol, Zoloft. LABORATORY DATA: White blood cell 15.7, hemoglobin 15.4, hematocrit 45.5, platelets 584. Sodium 139, potassium 4.5, BUN 19, creatinine 0.9, and glucose 109. ASSESSMENT AND PLAN: The patient is a 53-year-old male with leukocytosis, thrombocytosis, abnormal liver function test. Drug screen was positive for cannabinoid. History of parkinsonism, getting better after increasing the dose of Sinemet. He was admitted with suicidal attempts. He took some type of medication, was in the medical floor and now transferred to Psych, under the care of Dr. Geraldo Patel, because of suicidal attempt. He has history of major depression, severe depression with psychiatric features; getting psychotherapy, supportive therapy, group therapy. The patient is getting trazodone at night and Klonopin by Dr. Geraldo Patel, Sinemet for parkinsonism. Degenerative joint disease, ataxia improving. Continue present treatment. Repeat labs. We will follow up. Janee Mark MD [facility] # [id number]
[2018-08-25] MEDS: Carbidopa/Levodopa 25/100 CR PO SCH (09:34)
[2018-08-25] MEDS: Pantoprazole 40 mg EC Tab PO SCH (09:35)
[2018-08-25] MEDS: Vitamins A & D Oint UD Foilpak TOP SCH ×2 (09:36→17:20)
[2018-08-25] MEDS ORDERED: Influenza Vaccine 60 MCG/0.5 ML SYR (3 yr & up) IM ONE (10:00)
--- NOTE | 2018-08-25 12:53 | CP.PCM.PN ---
Addendum entered and electronically signed by Damien Reynolds DO 08/25/18 20:18: PGY1 Addendum to note from 08/25/18: Patient has difficulty sleeping. Thus, patient started on Seroquel 25mg PO HS. Original Note: <Damien Reynolds - Last Filed: 08/25/18 12:54> Subjective - Date & Time of Evaluation Date of Evaluation: 08/25/18 Time of Evaluation: 12:51 - Subjective Subjective: Neurology Consult Note for Dr. Rodriguez Patient seen at bedside laying down. Patient reports that he still has rigidity and tremors even after increasing the Sinemet dose to CR. Patient otherwise denies shortness of breath, chest pain, dizziness. Per nurse, patient complained that he could not sleep at night due to rigidity. Objective - Vital Signs/Intake and Output Vital Signs (last 24 hours): Temp Pulse Resp BP Pulse Ox 97.4 F L 92 H 18 133/82 98 08/25/18 06:21 08/25/18 06:21 08/25/18 06:21 08/25/18 06:21 08/23/18 06:23 - Medications Medications: Current Medications Acetaminophen (Tylenol 325mg Tab) 650 mg PO Q6 PRN PRN Reason: for c/o back pain Last Admin: 08/20/18 14:33 Dose: 650 mg Bupropion HCl (Wellbutrin) 75 mg PO DAILY [facility] Last Admin: 08/25/18 11:00 Dose: Not Given Carbidopa/Levodopa (Sinemet 10/100) 1 tab PO QID [facility] Last Admin: 08/25/18 09:34 Dose: 1 tab Carbidopa/Levodopa (Sinemet Cr) 2 tab PO DAILY [facility] Clonazepam (Klonopin) 0.5 mg PO BID [facility] Last Admin: 08/25/18 09:35 Dose: 0.5 mg Mupirocin (Bactroban Ointment) 0 gm TOP DAILY [facility] Last Admin: 08/25/18 09:36 Dose: 1 applic Pantoprazole Sodium (Protonix Ec Tab) 40 mg PO DAILY [facility] Last Admin: 08/25/18 09:35 Dose: 40 mg Pneumococcal Polyvalent Vaccine (Pneumovax 23 Vaccine) 0.5 ml IM .ONCE ONE Stop: 08/25/18 16:55 Trazodone HCl (Desyrel) 50 mg PO HS [facility] Last Admin: 08/24/18 22:12 Dose: 50 mg Vitamin A (Vitamin A & D Oint Ud Foilpak) 1 ea TOP BID [facility] Last Admin: 08/25/18 09:36 Dose: 1 ea - Labs Labs: 08/24/18 13:41 08/24/18 13:41 - Additional Findings Additional findings: - Constitutional Appears: Non-toxic, No Acute Distress - Head Exam Head Exam: ATRAUMATIC, NORMAL INSPECTION, NORMOCEPHALIC - Neurological Exam Neurological exam: Alert, CN II-XII Intact, Oriented x3, Reflexes Normal Additional comments: Positive for: bradykinesia, dyskinesia, cogwheel rigidity, and shuffling gait - Expanded Neurological Exam Expanded Neurological exam: Tremor Patient oriented to: person, place, time Speech: Fluid Speech Cranial nerves: EOM's Intact: Normal, Facial Palsey w/Forehead Movement: Normal, Facial Palsey w/o Forehead Movement: Normal, Facial Sensation: Normal, Gag Reflex: Normal, Nystagmus: Normal, Tongue Deviation: Normal Upper motor neuron: Pronator Drift: Normal Neuro motor strength exam: Left Upper Extremity: 5, Right Upper Extremity: 5, Left Lower Extremity: 5, Right Lower Extremity: 5 - Psychiatric Exam Psychiatric exam: Normal Mood Additional comments: Flat facies appreciated Assessment and Plan - Assessment and Plan (Free Text) Assessment: Patient is a 53-year-old male with past medical history of Parkinsons Disease and depression who is currently voluntarily in the psychiatric unit for suicidal attempt. Parkinson's Disease - Most recent CT head without contrast: negative for acute intracranial abnormalities - Patient restarted on Sinemet 25/100 QID --> discontinue - Start Carbidopa/Levodopa 10/100 1 tab PO QID - Start Carbidopa/Levodopa 25/100 CR 2 tabs PO Daily - change to daily at 8:00AM instead of 10:00AM) - Recommend obtaining SANDI scan as out-patient - Patient is to follow-up with Dr. Singh regarding brain stimulation and SANDI scan Please do not hesitate to call back with any new developments, data updates or questions. Thank you for the opportunity to participate in the care of this patient. Patient seen and case discussed with Dr. Jennifer Reynolds PGY1 <Anthony Rodriguez - Last Filed: 08/28/18 00:08> Objective - Vital Signs/Intake and Output Vital Signs (last 24 hours): Temp Pulse Resp BP Pulse Ox 98.3 F 101 H 20 125/81 95 08/27/18 16:00 08/27/18 16:00 08/27/18 16:00 08/27/18 16:00 08/27/18 16:00 Intake and Output: 08/27/18 08/28/18 18:59 06:59 Intake Total 840 550 Output Total 400 Balance 840 150 - Medications Medications: Current Medications Acetaminophen (Tylenol 325mg Tab) 650 mg PO Q6 PRN PRN Reason: for c/o back pain Last Admin: 08/27/18 16:48 Dose: 650 mg Bupropion HCl (Wellbutrin) 75 mg PO DAILY [facility] Last Admin: 08/27/18 09:28 Dose: 75 mg Carbidopa/Levodopa (Sinemet 10/100) 1 tab PO QID [facility] Last Admin: 08/27/18 21:17 Dose: 1 tab Carbidopa/Levodopa (Sinemet Cr) 2 tab PO BRK [facility] Last Admin: 08/27/18 08:50 Dose: 2 tab Clonazepam (Klonopin) 0.5 mg PO BID [facility] Last Admin: 08/27/18 17:35 Dose: 0.5 mg Cefazolin Sodium/Dextrose (Ancef Iv 1 Gm Duplex) 1 gm in 50 mls @ 100 mls/hr IVPB Q8H [facility]; Protocol Last Admin: 08/27/18 19:00 Dose: 100 mls/hr Vancomycin/Sodium Chloride (Vancomycin 1 Gm/Ns 200 Ml) 1 gm in 200 mls @ 133.333 mls/hr IVPB Q12H [facility]; Protocol Stop: 09/01/18 17:01 Last Admin: 08/27/18 19:46 Dose: 133.333 mls/hr Mupirocin (Bactroban Ointment) 0 gm TOP DAILY [facility] Last Admin: 08/27/18 11:51 Dose: 1 applic Pantoprazole Sodium (Protonix Ec Tab) 40 mg PO DAILY [facility] Last Admin: 08/27/18 09:25 Dose: 40 mg Quetiapine Fumarate (Seroquel) 25 mg PO HS [facility] Last Admin: 08/27/18 21:22 Dose: 25 mg Vitamin A (Vitamin A & D Oint Ud Foilpak) 1 ea TOP BID [facility] Last Admin: 08/27/18 17:42 Dose: 1 ea Zolpidem Tartrate (Ambien) 5 mg PO HS PRN PRN Reason: Insomnia - Labs Labs: 08/26/18 08:50 08/26/18 08:50 Attending/Attestation - Attestation I have personally seen and examined this patient.: Yes I have fully participated in the care of the patient.: Yes I have reviewed all pertinent clinical information, including history, physical exam and plan: Yes Notes (Text): 08/28/18 00:08 I agree with the assessment and plan. Will add Seroquel as mentioned.
--- NOTE | 2018-08-25 14:31 | PCM.PYCHPN ---
Psychiatric Progress Note - Psychiatric Progress Note Patient seen today, length of contact: 15 minutes Patient Chief Complaint: "I am okay" Problems Identified/Issues Discussed: The patient is seen, chart reviewed, case discussed with staff. Patient reports that his symptoms are getting worse compared to yesterday. He states that after he takes his medication, he feels better that he can walk and perform most physical motions. However, after 3 or more hours, he feels that dyskinesia is getting worse. He cannot get up from the chair or turn over in the bed. Patient refuses to take Zoloft stating that he is worried about its side effects. He is willing to try another medication. The pt is compliant with medications and reports no side-effects. Support given, psycho-education provided. After care discussed. Medication Change: No Medical Record Reviewed: Yes Mental Status Examination - Cognitive Function Orientation: Person, Place, Situation, Time Memory: Intact Attention: WNL Concentration: Poor Association: WNL Fund of Knowledge: Poor - Mood Mood: Depressed, Anxious - Affect Affect: Constricted, Depressed - Speech Speech: Appropriate - Formal Thought Process Formal Thought Process: No Impairment - Suicidal Ideation Suicidal Ideation: No - Homicidal Ideation Homicidal Ideation: No Goal/Treatment Plan - Goal/Treatment Plan Need for Continued Stay: Discharge may exacerbated symptoms, Severe functional impairment Progress Toward Problem(s) and Goals/Treatment Plan: Major Depressive disorder recurrent severe without psychotic features -CBT -Psychotherapy -Supportive therapy, group therapy, individual therapy -Atarax 25 mg PO Q6 prn -DC Sertraline 100 mg PO Daily -Wellbutrin 75 mg PO QDaily -Ambien 5 mg PO QHS -DC Trazodone 50 mg PO QHS prn -Klonopin 0.5 mg PO BID Estimated Date of D/C: 08/26/18
[2018-08-25] MEDS ORDERED: Pneumococcal 23-Valent Vaccine IM ONE (16:54)
--- NOTE | 2018-08-25 18:53 | CP.PCM.CON ---
History of Present Illness - History of Present Illness History of Present Illness: 53 year old male PMHx of Parkinson's is brought to the ED by EMS for possible overdose at home. Patient took too much of his medications, klonapin and seroquil. Patient has recently stopped getting care from his previous neurologist and is not currently being managed for his Parkinson's. His suicide attempt was premeditatted and decided to take the entire bottle of all his home medications. Patient denies fever, chills, headache, nausea, vomit, dizziness, rash, trauma, injury, fall. PMD: Dr Andrews in [place]. Neurologist: Dr Singh [facility]. Social Hx: Pt reports still smoking a few cigarettes a day, and marihuana which help him with his anxiety. Pt drinks socially only 1-2 beers weekly. patient referred for ID eval of cellulitis over sacrum which is worse and now assoc with leukocytosis but no fever claims area is numb started after episode of unconciousness before hospitalization neg for MRSA as per chart Past Patient History - Tetanus Immunizations Tetanus Immunization: Unknown - Past Medical History & Family History Past Medical History?: Yes - Past Social History Smoking Status: Light Smoker < 10 Cigarettes Daily - CARDIAC Hx Hypertension: Yes - PULMONARY Hx Respiratory Disorders: No - NEUROLOGICAL Hx Parkinson's Disease: Yes - HEENT Hx HEENT Problems: No - RENAL Hx Chronic Kidney Disease: No - ENDOCRINE/METABOLIC Hx Endocrine Disorders: No - HEMATOLOGICAL/ONCOLOGICAL Hx Human Immunodeficiency Virus (HIV): No - INTEGUMENTARY Hx Dermatological Problems: No - MUSCULOSKELETAL/RHEUMATOLOGICAL Hx Musculoskeletal Disorders: No Hx Falls: No - GASTROINTESTINAL Hx Gastrointestinal Disorders: No - GENITOURINARY/GYNECOLOGICAL Hx Genitourinary Disorders: No - PSYCHIATRIC Hx Substance Use: Yes - SURGICAL HISTORY Hx Surgeries: No - ANESTHESIA Hx Anesthesia: No Meds Allergies/Adverse Reactions: Allergies Allergy/AdvReac Type Severity Reaction Status Date / Time No Known Allergies Allergy Verified 07/21/14 11:25 - Medications Medications: Current Medications Acetaminophen (Tylenol 325mg Tab) 650 mg PO Q6 PRN PRN Reason: for c/o back pain Last Admin: 08/20/18 14:33 Dose: 650 mg Bupropion HCl (Wellbutrin) 75 mg PO DAILY [facility] Last Admin: 08/25/18 11:00 Dose: Not Given Carbidopa/Levodopa (Sinemet ) 1 tab PO QID [facility] Last Admin: 08/25/18 17:21 Dose: 1 tab Carbidopa/Levodopa (Sinemet Cr) 2 tab PO BRK [facility] Clonazepam (Klonopin) 0.5 mg PO BID [facility] Last Admin: 08/25/18 17:20 Dose: 0.5 mg Mupirocin (Bactroban Ointment) 0 gm TOP DAILY [facility] Last Admin: 08/25/18 09:36 Dose: 1 applic Pantoprazole Sodium (Protonix Ec Tab) 40 mg PO DAILY [facility] Last Admin: 08/25/18 09:35 Dose: 40 mg Vitamin A (Vitamin A & D Oint Ud Foilpak) 1 ea TOP BID [facility] Last Admin: 08/25/18 17:20 Dose: 1 ea Zolpidem Tartrate (Ambien) 5 mg PO HS PRN PRN Reason: Insomnia Results - Vital Signs Recent Vital Signs: Last Vital Signs Temp 97.4 F L 08/25/18 06:21 Pulse 109 H 08/25/18 15:55 Resp 18 08/25/18 06:21 BP 118/75 08/25/18 15:55 Pulse Ox 98 08/23/18 06:23 - Labs Result Diagrams: 08/24/18 13:41 08/24/18 13:41
[2018-08-25] MEDS: Amoxicillin-Clav 875-125 mg Tab PO SCH (19:18)
--- NOTE | 2018-08-26 01:57 | PN ---
DATE: 08/19/2018 SUBJECTIVE: The patient is a 53-year-old male. The patient was seen and examined at the bedside. Having a rash in the sacral area. Complaining about freezing due to parkinsonism. White blood cell is trending up. No fever. No chills. No headache or dizziness. PHYSICAL EXAMINATION: VITAL SIGNS: Temperature 97.4, pulse 109, respiratory rate 18, blood pressure 118/75, pulse oximetry 98. HEENT: Head normocephalic and atraumatic. Eyes PERRLA. Extraocular movements intact. Conjunctivae clear. Nose patent. Mucous membranes moist. NECK: Supple. No carotid bruits. No JVD or thyromegaly. CHEST: Bilaterally symmetrical. HEART: S1 and S2 positive. LUNGS: Clear to auscultation. ABDOMEN: Soft. Bowel sounds present. No organomegaly. EXTREMITIES: No edema. No cyanosis. NEUROLOGIC: The patient is awake, alert. Moving all four extremities. No focal deficits. MEDICATIONS: Tylenol, Sinemet CR, Klonopin. ASSESSMENT AND PLAN: Mr. Chele Jain is a 53-year-old male with leukocytosis, thrombocytosis, history of Parkinson's disease. Came to [facility] Emergency Room with possible overdose at home. The patient took much of his medications, Klonopin and Seroquel. The patient was transferred to the psychiatric floor. Now, he is in the psychiatric floor. Has decubitus ulcers. Getting physical therapy as the patient of Parkinson's disease. Appreciate Dr. Geraldo Patel's input. The patient has difficulty of sleeping, started on Seroquel 25 mg. Gastrointestinal and deep venous thrombosis prophylaxis. Repeat labs. We will follow up. Janee Mark MD MTDD
[2018-08-26] MEDS: Amoxicillin-Clav 875-125 mg Tab PO SCH (06:53)
[2018-08-26] MEDS ORDERED: Carbidopa/Levodopa 25/100 CR PO SCH (08:00)
[2018-08-26] MEDS: Carbidopa/Levodopa 25/100 CR PO SCH (08:27)
[2018-08-26 08:55] LABS: HEMOGLOBIN 15.7 g/dL (12.0-18.0); MEAN CELL VOLUME 83.6 fL (80.0-94.0); MEAN CORPUSCULAR HEMOGLOBIN 28.2 pg (27.0-31.0); MEAN CORPUSCULAR HGB CONC 33.7 g/dL (33.0-37.0); MEAN PLATELET VOLUME 7.3 fL (7.2-11.7); RBC 5.56 Mil/uL (4.40-5.90); RED CELL DISTRIBUTION WIDTH 16.6 % (11.5-14.5); WHITE BLOOD COUNT 18.3 K/uL (4.8-10.8)
[2018-08-26 09:16] LABS: BLOOD UREA NITROGEN 20 mg/dL (9-20); CALCIUM 9.8 mg/dl (8.6-10.4); GFR NON-AFRICAN AMERICAN > 60
[2018-08-26 09:48] LABS: HEPATITIS B SURFACE AG Negative (NEGATIVE)
[2018-08-26 09:54] LABS: HEPATITIS A IGM NEGATIVE (NEGATIVE); HEPATITIS B CORE AB NEGATIVE (NEGATIVE)
[2018-08-26 10:06] LABS: HEPATITIS C ANTIBODY NEGATIVE (NEGATIVE)
[2018-08-26 10:20] LABS: CK-MB 1.22 ng/mL (0.0-3.38)
[2018-08-26] MEDS: Pantoprazole 40 mg EC Tab PO SCH (10:25)
[2018-08-26] MEDS: Vitamins A & D Oint UD Foilpak TOP SCH ×2 (13:20→17:59)
--- NOTE | 2018-08-26 14:23 | PCM.PYCHPN ---
Psychiatric Progress Note - Psychiatric Progress Note Patient seen today, length of contact: 15 minutes Problems Identified/Issues Discussed: The pt is seen, chart reviewed, case discussed with staff. The pt is compliant with medications and reports no side-effects. Symptoms are improving but his medical condition is worse and had some CP and will be transferred to medicine Support given, psycho-education provided. After care discussed. - He minimizes need for psych follow up Medication Change: No Medical Record Reviewed: Yes Mental Status Examination - Cognitive Function Orientation: Person, Place, Situation, Time Memory: Intact Attention: WNL Concentration: Poor Association: WNL Fund of Knowledge: Poor - Mood Mood: Depressed, Anxious - Affect Affect: Constricted, Depressed - Speech Speech: Appropriate - Formal Thought Process Formal Thought Process: No Impairment - Suicidal Ideation Suicidal Ideation: No - Homicidal Ideation Homicidal Ideation: No Goal/Treatment Plan - Goal/Treatment Plan Need for Continued Stay: Discharge may exacerbated symptoms, Severe functional impairment Estimated Date of D/C: 08/26/18
[2018-08-26 16:38] LABS: CK-MB 0.96 ng/mL (0.0-3.38)
--- NOTE | 2018-08-26 18:34 | CP.PCM.PN ---
Subjective - Date & Time of Evaluation Date of Evaluation: 08/26/18 Time of Evaluation: 08:00 - Subjective Subjective: patient referred for ID eval of cellulitis over sacrum which is worse and now assoc with leukocytosis but no fever claims area is numb started after episode of unconciousness before hospitalization neg for MRSA as per chart Objective - Vital Signs/Intake and Output Vital Signs (last 24 hours): Temp Pulse Resp BP Pulse Ox 98.6 F 112 H 20 141/70 97 08/26/18 14:00 08/26/18 14:00 08/26/18 14:00 08/26/18 14:00 08/26/18 14:00 - Medications Medications: Current Medications Acetaminophen (Tylenol 325mg Tab) 650 mg PO Q6 PRN PRN Reason: for c/o back pain Last Admin: 08/26/18 06:56 Dose: 650 mg Amoxicillin/Clavulanate Potassium (Augmentin 875 Mg-125 Mg Tab) 1 tab PO Q12H [facility]; Protocol Last Admin: 08/26/18 06:53 Dose: 1 tab Bupropion HCl (Wellbutrin) 75 mg PO DAILY [facility] Last Admin: 08/26/18 10:29 Dose: Not Given Carbidopa/Levodopa (Sinemet 10/100) 1 tab PO QID [facility] Last Admin: 08/26/18 17:57 Dose: 1 tab Carbidopa/Levodopa (Sinemet Cr) 2 tab PO BRK [facility] Last Admin: 08/26/18 08:27 Dose: 2 tab Clonazepam (Klonopin) 0.5 mg PO BID [facility] Last Admin: 08/26/18 17:59 Dose: 0.5 mg Mupirocin (Bactroban Ointment) 0 gm TOP DAILY [facility] Last Admin: 08/26/18 13:19 Dose: 1 applic Pantoprazole Sodium (Protonix Ec Tab) 40 mg PO DAILY [facility] Last Admin: 08/26/18 10:25 Dose: 40 mg Quetiapine Fumarate (Seroquel) 25 mg PO HS [facility] Last Admin: 08/25/18 21:20 Dose: 25 mg Vitamin A (Vitamin A & D Oint Ud Foilpak) 1 ea TOP BID [facility] Last Admin: 08/26/18 17:59 Dose: 1 ea Zolpidem Tartrate (Ambien) 5 mg PO HS PRN PRN Reason: Insomnia - Labs Labs: 08/26/18 08:50 08/26/18 08:50 - Constitutional Appears: Non-toxic, Chronically Ill - Head Exam Head Exam: NORMOCEPHALIC - Eye Exam Eye Exam: PERRL - ENT Exam ENT Exam: Mucous Membranes Dry - Neck Exam Neck Exam: absent: Lymphadenopathy - Respiratory Exam Respiratory Exam: Decreased Breath Sounds - Cardiovascular Exam Cardiovascular Exam: REGULAR RHYTHM - GI/Abdominal Exam GI & Abdominal Exam: Distended - Rectal Exam Rectal Exam: Deferred - Exam Exam: NORMAL INSPECTION - Extremities Exam Extremities Exam: absent: Pedal Edema - Back Exam Back Exam: absent: CVA tenderness (L), CVA tenderness (R) - Neurological Exam Neurological Exam: Alert, Awake, CN II-XII Intact, Motor Sensory Deficit - Psychiatric Exam Psychiatric exam: Depressed - Skin Skin Exam: Erythema, Rash Assessment and Plan - Assessment and Plan (Free Text) Plan: patient referred for ID eval of cellulitis over sacrum which is worse and now assoc with leukocytosis but no fever claims area is numb started after episode of unconciousness before hospitalization neg for MRSA as per chart
[2018-08-26 20:26] LABS: CK-MB 0.88 ng/mL (0.0-3.38)
[2018-08-26] MEDS: ceFAZolin IV 1 gm in Dextrose 1 GM/50 ML BAG IVPB SCH (21:00)
--- NOTE | 2018-08-26 23:09 | CP.PCM.PN ---
Subjective - Date & Time of Evaluation Date of Evaluation: 08/26/18 Time of Evaluation: 20:15 - Subjective Subjective: Patient seen and evaluated Non cardiac brief right sided chest pain Non exertional Patient is ambulatory states can walk 10 blocks with ease EKG 08/20/18: Normal No significant cardiac history Cardiac point of view cleared to go back to psych unit Objective - Vital Signs/Intake and Output Vital Signs (last 24 hours): Temp Pulse Resp BP Pulse Ox 98.6 F 112 H 20 141/70 97 08/26/18 14:00 08/26/18 14:00 08/26/18 14:00 08/26/18 14:00 08/26/18 14:00 - Medications Medications: Current Medications Acetaminophen (Tylenol 325mg Tab) 650 mg PO Q6 PRN PRN Reason: for c/o back pain Last Admin: 08/26/18 06:56 Dose: 650 mg Bupropion HCl (Wellbutrin) 75 mg PO DAILY [facility] Last Admin: 08/26/18 10:29 Dose: Not Given Carbidopa/Levodopa (Sinemet 10/100) 1 tab PO QID [facility] Last Admin: 08/26/18 22:11 Dose: 1 tab Carbidopa/Levodopa (Sinemet Cr) 2 tab PO BRK [facility] Last Admin: 08/26/18 08:27 Dose: 2 tab Clonazepam (Klonopin) 0.5 mg PO BID [facility] Last Admin: 08/26/18 17:59 Dose: 0.5 mg Cefazolin Sodium/Dextrose (Ancef Iv 1 Gm Duplex) 1 gm in 50 mls @ 100 mls/hr IVPB Q8H [facility]; Protocol Last Admin: 08/26/18 21:00 Dose: 100 mls/hr Mupirocin (Bactroban Ointment) 0 gm TOP DAILY [facility] Last Admin: 08/26/18 13:19 Dose: 1 applic Pantoprazole Sodium (Protonix Ec Tab) 40 mg PO DAILY [facility] Last Admin: 08/26/18 10:25 Dose: 40 mg Quetiapine Fumarate (Seroquel) 25 mg PO HS [facility] Last Admin: 08/26/18 22:23 Dose: 25 mg Vitamin A (Vitamin A & D Oint Ud Foilpak) 1 ea TOP BID [facility] Last Admin: 08/26/18 17:59 Dose: 1 ea Zolpidem Tartrate (Ambien) 5 mg PO HS PRN PRN Reason: Insomnia - Labs Labs: 08/26/18 08:50 08/26/18 08:50
[2018-08-27] MEDS: ceFAZolin IV 1 gm in Dextrose 1 GM/50 ML BAG IVPB SCH ×3 (03:24→19:00)
[2018-08-27] MEDS: Carbidopa/Levodopa 25/100 CR PO SCH (08:50)
[2018-08-27] MEDS: Pantoprazole 40 mg EC Tab PO SCH (09:25)
[2018-08-27] MEDS: Vitamins A & D Oint UD Foilpak TOP SCH ×2 (09:25→17:42)
--- NOTE | 2018-08-27 14:26 | PCM.PYCHPN ---
Psychiatric Progress Note - Psychiatric Progress Note Patient seen today, length of contact: 15 minutes Patient Chief Complaint: "I'm psychiatrically fine" Problems Identified/Issues Discussed: The pt is seen, chart reviewed, case discussed with staff. The pt is compliant with medications and reports no side-effects. His CP disappeared, and neuro saw him again He says as long as he takes his neuro eds on time he is fine Anxiety mgt discussed Wants to follow up with his neurologist only Lives with a friend Not suicidal or homicidal Future oriented CRC referral made but it is not clear if he will f/u - risks discussed Support given Cleared for d/c by psych Medication Change: No Medical Record Reviewed: Yes Mental Status Examination - Cognitive Function Orientation: Person, Place, Situation, Time Memory: Intact Attention: WNL Concentration: Poor Association: WNL Fund of Knowledge: WNL - Mood Mood: Anxious - Affect Affect: Constricted, Depressed - Speech Speech: Appropriate - Formal Thought Process Formal Thought Process: No Impairment - Suicidal Ideation Suicidal Ideation: No - Homicidal Ideation Homicidal Ideation: No Goal/Treatment Plan - Goal/Treatment Plan Progress Toward Problem(s) and Goals/Treatment Plan: Cleared for d/c Follow with [facility] at [address] Estimated Date of D/C: 08/26/18
--- NOTE | 2018-08-27 16:52 | CP.PCM.PN ---
Subjective - Date & Time of Evaluation Date of Evaluation: 08/27/18 Time of Evaluation: 07:00 - Subjective Subjective: c/o parkinsons symptoms denies fever WBC up to 18K cultures neg thus far on Vanco/ancef Objective - Vital Signs/Intake and Output Vital Signs (last 24 hours): Temp Pulse Resp BP Pulse Ox 98.3 F 101 H 20 125/81 95 08/27/18 16:00 08/27/18 16:00 08/27/18 16:00 08/27/18 16:00 08/27/18 16:00 Intake and Output: 08/27/18 08/27/18 06:59 18:59 Intake Total 840 Balance 840 - Medications Medications: Current Medications Acetaminophen (Tylenol 325mg Tab) 650 mg PO Q6 PRN PRN Reason: for c/o back pain Last Admin: 08/26/18 06:56 Dose: 650 mg Bupropion HCl (Wellbutrin) 75 mg PO DAILY [facility] Last Admin: 08/27/18 09:28 Dose: 75 mg Carbidopa/Levodopa (Sinemet 10/100) 1 tab PO QID [facility] Last Admin: 08/27/18 14:27 Dose: 1 tab Carbidopa/Levodopa (Sinemet Cr) 2 tab PO BRK [facility] Last Admin: 08/27/18 08:50 Dose: 2 tab Clonazepam (Klonopin) 0.5 mg PO BID [facility] Last Admin: 08/27/18 09:25 Dose: 0.5 mg Cefazolin Sodium/Dextrose (Ancef Iv 1 Gm Duplex) 1 gm in 50 mls @ 100 mls/hr IVPB Q8H [facility]; Protocol Last Admin: 08/27/18 10:48 Dose: 100 mls/hr Mupirocin (Bactroban Ointment) 0 gm TOP DAILY [facility] Last Admin: 08/27/18 11:51 Dose: 1 applic Pantoprazole Sodium (Protonix Ec Tab) 40 mg PO DAILY [facility] Last Admin: 08/27/18 09:25 Dose: 40 mg Quetiapine Fumarate (Seroquel) 25 mg PO HS [facility] Last Admin: 08/26/18 22:23 Dose: 25 mg Vitamin A (Vitamin A & D Oint Ud Foilpak) 1 ea TOP BID [facility] Last Admin: 08/27/18 09:25 Dose: 1 ea Zolpidem Tartrate (Ambien) 5 mg PO HS PRN PRN Reason: Insomnia - Labs Labs: 08/26/18 08:50 08/26/18 08:50 - Constitutional Appears: Non-toxic, Chronically Ill - Head Exam Head Exam: NORMOCEPHALIC - Eye Exam Eye Exam: PERRL - ENT Exam ENT Exam: Mucous Membranes Dry - Neck Exam Neck Exam: absent: Lymphadenopathy - Respiratory Exam Respiratory Exam: Decreased Breath Sounds - Cardiovascular Exam Cardiovascular Exam: REGULAR RHYTHM, +S1, +S2 - GI/Abdominal Exam GI & Abdominal Exam: Distended. absent: Tenderness Assessment and Plan - Assessment and Plan (Free Text) Assessment: cont iv rx for cellulitis recc wound care eval and follow up
[2018-08-27] MEDS: Vancomycin 1 gm/NS 200 ml 1 GM/200 ML BAG IVPB SCH (19:46)
--- NOTE | 2018-08-27 21:26 | CARD ---
APPROVED REPORT Date of service: 08/27/2018 EXAM: Two-dimensional and M-mode echocardiogram with Doppler and color Doppler. Other Information Quality : GoodRhythm : INDICATION Chest Pain overdose 2D DIMENSIONS IVSd1.4 (0.7-1.1cm)LVDd4.1 (3.9-5.9cm) PWd1.2 (0.7-1.1cm)LA Psgebu39 (18-58mL) LVDs2.8 (2.5-4.0cm)FS (%) 31.5 % LVEF (%)67.0 (>50%)LVEF (Agustin's)70.69 % IVC0.00 cm M-Mode DIMENSIONS RVDd2.15 (2.1-3.2cm)Left Atrium (MM)3.75 (2.5-4.0cm) IVSd1.01 (0.7-1.1cm)Aortic Root2.81 (2.2-3.7cm) LVDd4.37 (4.0-5.6cm)Aortic Cusp Exc.2.12 (1.5-2.0cm) PWd1.11 (0.7-1.1cm)FS (%) 47 % LVDs2.33 (2.0-3.8cm)LVEF (%)71 (>50%) Mitral Valve MV E Qlimfzrz72.0cm/sMV A Mopkctbp06.8cm/sE/A ratio1.0 TDI Lateral E' Peak V10.68cm/sMedial E' Peak V8.55cm/sE/Lateral E'5.1 E/Medial E'6.3 Tricuspid Valve TR Peak Sgrgsami410rc/sTR Peak Gr.83vlBwYQWB14qdZd LEFT VENTRICLE The left ventricle is normal size. There is normal left ventricular wall thickness. The left ventricular function is normal. The left ventricular ejection fraction is within the normal range. 73%. No regional wall motion abnormalities noted. The left ventricular diastolic function is normal. No left ventricle thrombus noted on this study. There is no ventricular septal defect visualized. There is no left ventricular aneurysm. There is no mass noted in the left ventricle. RIGHT VENTRICLE The right ventricle is normal size. There is normal right ventricular wall thickness. The right ventricular systolic function is normal. ATRIA The left atrium size is normal. The right atrium size is normal. The interatrial septum is intact with no evidence for an atrial septal defect. AORTIC VALVE The aortic valve is normal in structure and function. No aortic regurgitation is present. There is no aortic valvular stenosis. There is no aortic valvular vegetation. MITRAL VALVE The mitral valve is normal in structure and function. There is no evidence of mitral valve prolapse. There is no mitral valve stenosis. There is no mitral valve regurgitation noted. TRICUSPID VALVE The tricuspid valve is normal in structure and function. There is no tricuspid valve regurgitation noted. There is no tricuspid valve prolapse or vegetation. There is no tricuspid valve stenosis. PULMONIC VALVE The pulmonary valve is normal in structure and function. There is no pulmonic valvular regurgitation. There is no pulmonic valvular stenosis. GREAT VESSELS The aortic root is normal in size. The ascending aorta is normal in size. The pulmonary artery is normal. The IVC is normal in size and collapses >50% with inspiration. PERICARDIAL EFFUSION The pericardium appears normal. There is no pleural effusion. <Conclusion> Normal study
--- NOTE | 2018-08-27 23:44 | PN ---
DATE: 08/26/2018 SUBJECTIVE: The patient was seen and examined at the bedside, looking comfortable, in bed, anxious, still having tremor. No fever. No chills. No nausea, vomiting, or diarrhea. No hematuria or hematochezia. Still has rash on the sacral area. PHYSICAL EXAMINATION: VITAL SIGNS: Temperature 98.6, pulse 112, respiratory rate 20, blood pressure 140/70, pulse oximetry 97. HEENT: Head is normocephalic and atraumatic. Eyes PERRLA. Pupils intact. Conjunctivae clear. Nose patent. Mucous membranes are moist. NECK: Supple. No carotid bruits. No JVD or thyromegaly. CHEST: Bilaterally symmetrical. HEART: S1 and S2 positive. LUNGS: Clear to auscultation. ABDOMEN: Soft. Bowel sounds are present. No organomegaly. EXTREMITIES: No edema. No cyanosis. NEUROLOGIC: The patient is awake and alert. Moving all four extremities. No focal deficits. MEDICATIONS: Tylenol, Augmentin, Wellbutrin, Sinemet, Klonopin, Bactroban, Protonix, Seroquel, vitamin A, Ambien. LABORATORY DATA: White blood cell is 18.3, hemoglobin 15.7, hematocrit 46.5, platelets 670. Sodium 137, potassium 4.7, BUN 20, creatinine 0.8, glucose 104. ASSESSMENT AND PLAN: Mr. Chele Jain is a 53-year-old male with leukocytosis, thrombocytosis. Has cellulitis over the sacral area which is worse, and now associated with leukocytosis, but no fever. started after episode of unconsciousness before hospitalization, negative for MRSA as per Dr. Gannon, Infectious Disease. Due to that we brought the patient to the medical floor to give IV antibiotics. Database Consultant is on the case, Dr. David Orourke. The patient has a history of Parkinsonism. Neurologist is on the case, was admitted initially for suicidal attempts. Psychiatrist is on the case. Getting Seroquel. Gastrointestinal and deep venous thrombosis prophylaxis. Repeat labs. We will follow up. Janee Mark MD FAISAL
[2018-08-28] MEDS: ceFAZolin IV 1 gm in Dextrose 1 GM/50 ML BAG IVPB SCH ×3 (02:58→20:15)
[2018-08-28] MEDS: Vancomycin 1 gm/NS 200 ml 1 GM/200 ML BAG IVPB SCH ×2 (04:00→17:56)
--- NOTE | 2018-08-28 06:57 | CP.PCM.PN ---
Subjective - Date & Time of Evaluation Date of Evaluation: 08/27/18 Time of Evaluation: 20:40 - Subjective Subjective: Patient seen and evaluated Non cardiac non exertional chest pain episodes ECHO and EKG normal No further cardiac work up needed Cardiac point of view cleared for transfer back to Psych unit Objective - Vital Signs/Intake and Output Vital Signs (last 24 hours): Temp Pulse Resp BP Pulse Ox 98.1 F 83 20 110/77 98 08/28/18 00:16 08/28/18 00:16 08/28/18 00:16 08/28/18 00:16 08/28/18 00:16 Intake and Output: 08/27/18 08/28/18 18:59 06:59 Intake Total 840 950 Output Total 400 Balance 840 550 - Medications Medications: Current Medications Acetaminophen (Tylenol 325mg Tab) 650 mg PO Q6 PRN PRN Reason: for c/o back pain Last Admin: 08/28/18 06:10 Dose: 650 mg Bupropion HCl (Wellbutrin) 75 mg PO DAILY [facility] Last Admin: 08/27/18 09:28 Dose: 75 mg Carbidopa/Levodopa (Sinemet 10/100) 1 tab PO QID [facility] Last Admin: 08/27/18 21:17 Dose: 1 tab Carbidopa/Levodopa (Sinemet Cr) 2 tab PO BRK [facility] Last Admin: 08/27/18 08:50 Dose: 2 tab Clonazepam (Klonopin) 0.5 mg PO BID [facility] Last Admin: 08/27/18 17:35 Dose: 0.5 mg Cefazolin Sodium/Dextrose (Ancef Iv 1 Gm Duplex) 1 gm in 50 mls @ 100 mls/hr IVPB Q8H [facility]; Protocol Last Admin: 08/28/18 02:58 Dose: 100 mls/hr Vancomycin/Sodium Chloride (Vancomycin 1 Gm/Ns 200 Ml) 1 gm in 200 mls @ 133.333 mls/hr IVPB Q12H [facility]; Protocol Stop: 09/01/18 17:01 Last Admin: 08/28/18 04:00 Dose: 133.333 mls/hr Mupirocin (Bactroban Ointment) 0 gm TOP DAILY [facility] Last Admin: 08/27/18 11:51 Dose: 1 applic Pantoprazole Sodium (Protonix Ec Tab) 40 mg PO DAILY [facility] Last Admin: 08/27/18 09:25 Dose: 40 mg Quetiapine Fumarate (Seroquel) 25 mg PO HS [facility] Last Admin: 08/27/18 21:22 Dose: 25 mg Vitamin A (Vitamin A & D Oint Ud Foilpak) 1 ea TOP BID [facility] Last Admin: 08/27/18 17:42 Dose: 1 ea Zolpidem Tartrate (Ambien) 5 mg PO HS PRN PRN Reason: Insomnia Last Admin: 08/28/18 01:27 Dose: 5 mg - Labs Labs: 08/26/18 08:50 08/26/18 08:50
[2018-08-28] MEDS: Carbidopa/Levodopa 25/100 CR PO SCH (08:09)
[2018-08-28 08:24] LABS: HEMOGLOBIN 15.9 g/dL (12.0-18.0); MEAN CELL VOLUME 83.8 fL (80.0-94.0); MEAN CORPUSCULAR HGB CONC 33.5 g/dL (33.0-37.0); MEAN PLATELET VOLUME 7.2 fL (7.2-11.7); RBC 5.68 Mil/uL (4.40-5.90); WHITE BLOOD COUNT 16.9 K/uL (4.8-10.8)
[2018-08-28 08:38] LABS: BLOOD UREA NITROGEN 17 mg/dL (9-20); CALCIUM 9.8 mg/dl (8.6-10.4); GFR NON-AFRICAN AMERICAN > 60
[2018-08-28] MEDS: Pantoprazole 40 mg EC Tab PO SCH (09:19)
[2018-08-28] MEDS: Vitamins A & D Oint UD Foilpak TOP SCH ×2 (09:20→17:56)
--- NOTE | 2018-08-28 14:56 | CP.PCM.PN ---
Subjective - Date & Time of Evaluation Date of Evaluation: 08/28/18 Time of Evaluation: 14:53 - Subjective Subjective: AGENT BASED MODELER FOLLOWING UP REGARDING D/C PLANNING ENDORSED FROM Thursday08/27/18 AGENT BASED MODELER: 1) PER NEURO NOTES: CARBIDOPA/LEVODOPA 10/100 TAKE 1 TABLET PO QID (STARTING AT 1000AM); ALSO CONTINUE CARBIDOPA/LEVODOPA 25/100 CR TAKE 2 TABS PO ONCE A DAY AT 0800. 2) I DISCUSSED D/C PLAN WITH DR. PHILLIP AND HE IS RECOMMENDING TO CONTINUE THE IV ANCEF AND VANCO FOR 7 MORE DAYS (START REGIMEN ON AND LAST DAY FOR DOSES IS 09/04/18). 3) PHYSICAL THERAPY IS RECOMMENDING TCU THE PT HAS UNSTEADY GAIT. PER NALDO SILVINA, THERE WAS NO TCU REFERRAL INFORMATION LEFT FOR HER FROM Thursday. NOW SINCE HE WILL NEED 7 MORE DAYS OF 2 IV ABX, TCU REFERRAL CAN BE INITIATED ON 08/30/18, WHEN ADMISSIONS OFFICE AT TCU IS OPEN. OTHERWISE, PT IS CLEARED BY ALL OTHER CONSULTS, INCLUDING PSYCH, CARDIO, AND NEURO. NO FURTHER ORDERS. THURSDAY AGENT BASED MODELER CAN F/U WITH ABOVE. Objective - Vital Signs/Intake and Output Vital Signs (last 24 hours): Temp Pulse Resp BP Pulse Ox 98.1 F 108 H 20 136/82 96 08/28/18 09:01 08/28/18 09:01 08/28/18 09:01 08/28/18 09:01 08/28/18 09:01 Intake and Output: 08/28/18 08/28/18 06:59 18:59 Intake Total 950 Output Total 400 Balance 550 - Medications Medications: Current Medications Acetaminophen (Tylenol 325mg Tab) 650 mg PO Q6 PRN PRN Reason: for c/o back pain Last Admin: 08/28/18 06:10 Dose: 650 mg Bupropion HCl (Wellbutrin) 75 mg PO DAILY [facility] Last Admin: 08/28/18 09:20 Dose: 75 mg Carbidopa/Levodopa (Sinemet 10/100) 1 tab PO QID [facility] Last Admin: 08/28/18 13:38 Dose: 1 tab Carbidopa/Levodopa (Sinemet Cr) 2 tab PO BRK [facility] Last Admin: 08/28/18 08:09 Dose: 2 tab Clonazepam (Klonopin) 0.5 mg PO BID [facility] Last Admin: 08/28/18 09:19 Dose: 0.5 mg Cefazolin Sodium/Dextrose (Ancef Iv 1 Gm Duplex) 1 gm in 50 mls @ 100 mls/hr IVPB Q8H [facility]; Protocol Last Admin: 08/28/18 12:20 Dose: 100 mls/hr Vancomycin/Sodium Chloride (Vancomycin 1 Gm/Ns 200 Ml) 1 gm in 200 mls @ 133.333 mls/hr IVPB Q12H [facility]; Protocol Stop: 09/01/18 17:01 Last Admin: 08/28/18 04:00 Dose: 133.333 mls/hr Mupirocin (Bactroban Ointment) 0 gm TOP DAILY [facility] Last Admin: 08/28/18 10:40 Dose: Not Given Pantoprazole Sodium (Protonix Ec Tab) 40 mg PO DAILY [facility] Last Admin: 08/28/18 09:19 Dose: 40 mg Quetiapine Fumarate (Seroquel) 25 mg PO HS [facility] Last Admin: 08/27/18 21:22 Dose: 25 mg Vitamin A (Vitamin A & D Oint Ud Foilpak) 1 ea TOP BID [facility] Last Admin: 08/28/18 09:20 Dose: 1 ea Zolpidem Tartrate (Ambien) 5 mg PO HS PRN PRN Reason: Insomnia Last Admin: 08/28/18 01:27 Dose: 5 mg - Labs Labs: 08/28/18 08:20 08/28/18 08:20
[2018-08-29] MEDS: ceFAZolin IV 1 gm in Dextrose 1 GM/50 ML BAG IVPB SCH ×3 (02:31→18:57)
[2018-08-29] MEDS: Vancomycin 1 gm/NS 200 ml 1 GM/200 ML BAG IVPB SCH ×2 (04:30→17:09)
[2018-08-29 07:39] LABS: MEAN CELL VOLUME 83.3 fL (80.0-94.0); MEAN CORPUSCULAR HEMOGLOBIN 28.8 pg (27.0-31.0); MEAN CORPUSCULAR HGB CONC 34.5 g/dL (33.0-37.0); MEAN PLATELET VOLUME 7.3 fL (7.2-11.7); RBC 5.56 Mil/uL (4.40-5.90); RED CELL DISTRIBUTION WIDTH 16.8 % (11.5-14.5); WHITE BLOOD COUNT 17.3 K/uL (4.8-10.8)
[2018-08-29 08:16] LABS: BLOOD UREA NITROGEN 16 mg/dL (9-20); CALCIUM 9.9 mg/dl (8.6-10.4); GFR NON-AFRICAN AMERICAN > 60
[2018-08-29 08:29] VITALS: RESP 20
[2018-08-29] MEDS: Carbidopa/Levodopa 25/100 CR PO SCH (08:32)
[2018-08-29] MEDS: Pantoprazole 40 mg EC Tab PO SCH (09:08)
[2018-08-29] MEDS: Vitamins A & D Oint UD Foilpak TOP SCH ×2 (09:08→17:09)
--- NOTE | 2018-08-29 15:42 | CP.PCM.PN ---
Subjective - Date & Time of Evaluation Date of Evaluation: 08/29/18 Time of Evaluation: 09:00 - Subjective Subjective: cellulitis less consider heme and surgical eval Objective - Vital Signs/Intake and Output Vital Signs (last 24 hours): Temp Pulse Resp BP Pulse Ox 98.1 F 97 H 20 144/86 96 08/29/18 08:28 08/29/18 08:28 08/29/18 08:28 08/29/18 08:28 08/29/18 08:28 Intake and Output: 08/29/18 08/29/18 06:59 18:59 Intake Total 940 250 Balance 940 250 - Medications Medications: Current Medications Acetaminophen (Tylenol 325mg Tab) 650 mg PO Q6 PRN PRN Reason: for c/o back pain Last Admin: 08/29/18 08:31 Dose: 650 mg Bupropion HCl (Wellbutrin) 75 mg PO DAILY [facility] Last Admin: 08/29/18 09:08 Dose: 75 mg Carbidopa/Levodopa (Sinemet 10/100) 1 tab PO QID [facility] Last Admin: 08/29/18 13:38 Dose: 1 tab Carbidopa/Levodopa (Sinemet Cr) 2 tab PO BRK [facility] Last Admin: 08/29/18 08:32 Dose: 2 tab Clonazepam (Klonopin) 0.5 mg PO BID [facility] Last Admin: 08/29/18 09:08 Dose: 0.5 mg Cefazolin Sodium/Dextrose (Ancef Iv 1 Gm Duplex) 1 gm in 50 mls @ 100 mls/hr IVPB Q8H [facility]; Protocol Last Admin: 08/29/18 11:51 Dose: 100 mls/hr Vancomycin/Sodium Chloride (Vancomycin 1 Gm/Ns 200 Ml) 1 gm in 200 mls @ 133.333 mls/hr IVPB Q12H [facility]; Protocol Stop: 09/01/18 17:01 Last Admin: 08/29/18 04:30 Dose: 133.333 mls/hr Ibuprofen (Motrin Tab) 400 mg PO TID PRN PRN Reason: Pain, moderate (4-7) Last Admin: 08/29/18 05:35 Dose: 400 mg Mupirocin (Bactroban Ointment) 0 gm TOP DAILY [facility] Last Admin: 08/29/18 09:08 Dose: 1 applic Pantoprazole Sodium (Protonix Ec Tab) 40 mg PO DAILY [facility] Last Admin: 08/29/18 09:08 Dose: 40 mg Quetiapine Fumarate (Seroquel) 25 mg PO HS [facility] Last Admin: 08/28/18 21:57 Dose: 25 mg Vitamin A (Vitamin A & D Oint Ud Foilpak) 1 ea TOP BID [facility] Last Admin: 08/29/18 09:08 Dose: 1 ea Zolpidem Tartrate (Ambien) 5 mg PO HS PRN PRN Reason: Insomnia Last Admin: 08/28/18 01:27 Dose: 5 mg - Labs Labs: 08/29/18 07:20 08/29/18 07:20 - Constitutional Appears: Non-toxic, Chronically Ill - Head Exam Head Exam: NORMOCEPHALIC - Eye Exam Eye Exam: PERRL - ENT Exam ENT Exam: Mucous Membranes Dry - Neck Exam Neck Exam: absent: Lymphadenopathy - Respiratory Exam Respiratory Exam: Decreased Breath Sounds - Cardiovascular Exam Cardiovascular Exam: REGULAR RHYTHM - GI/Abdominal Exam GI & Abdominal Exam: Distended, Soft Assessment and Plan (1) Drug overdose, intentional Status: Acute (2) Major depressive disorder, recurrent severe without psychotic features Status: Acute (3) Parkinson disease Status: Chronic - Assessment and Plan (Free Text) Assessment: consider imaging sacral spine surgical eval wound care all cultures neg thus far Plan: surgical eval
--- NOTE | 2018-08-29 22:31 | CP.PCM.CON ---
<CaoTessa - Last Filed: 08/29/18 22:17> History of Present Illness - History of Present Illness History of Present Illness: Surgery progress note for Dr. Milian Consulted for: sacral wound Pt is a 53M with PMH of Parkinson's disease who was admitted to the hospital after being found unconscious on the ground and was found to have overdose on psych meds. Patient has had leukocytosis of unknown origin and has skin breakdown of the sacrum, so surgery was consulted. patient sits for hours in the bedside chair, because it is difficult for him to lie in bed or ambulate with his Parkinson's. patient denies any pain, fevers, chills, abdominal pain, nausea, vomiting, dysuria, hematuria, chest pain, or SOB. Patient does report some numbness in the skin of his sacrum. PMH: parkinsons disease, HTN, depression/anxiety PSH: denies ALL: denies Social: smokes cigarettes, reports remote heavy drinking Review of Systems - Review of Systems All systems: reviewed and no additional remarkable complaints except (as per HP I) Past Patient History - Tetanus Immunizations Tetanus Immunization: Unknown - Past Medical History & Family History Past Medical History?: Yes Past Family History: Reviewed and not pertinent - Past Social History Smoking Status: Light Smoker < 10 Cigarettes Daily Alcohol: Other (former) - CARDIAC Hx Hypertension: Yes - PULMONARY Hx Respiratory Disorders: No - NEUROLOGICAL Hx Parkinson's Disease: Yes - HEENT Hx HEENT Problems: No - RENAL Hx Chronic Kidney Disease: No - ENDOCRINE/METABOLIC Hx Endocrine Disorders: No - HEMATOLOGICAL/ONCOLOGICAL Hx Human Immunodeficiency Virus (HIV): No - INTEGUMENTARY Hx Dermatological Problems: No - MUSCULOSKELETAL/RHEUMATOLOGICAL Hx Musculoskeletal Disorders: No Hx Falls: No - GASTROINTESTINAL Hx Gastrointestinal Disorders: No - GENITOURINARY/GYNECOLOGICAL Hx Genitourinary Disorders: No - PSYCHIATRIC Hx Anxiety: Yes Hx Substance Use: No - SURGICAL HISTORY Hx Surgeries: No - ANESTHESIA Hx Anesthesia: No Meds Allergies/Adverse Reactions: Allergies Allergy/AdvReac Type Severity Reaction Status Date / Time No Known Allergies Allergy Verified 07/21/14 11:25 - Medications Medications: Current Medications Acetaminophen (Tylenol 325mg Tab) 650 mg PO Q6 PRN PRN Reason: for c/o back pain Last Admin: 08/29/18 08:31 Dose: 650 mg Bupropion HCl (Wellbutrin) 75 mg PO DAILY [facility] Last Admin: 08/29/18 09:08 Dose: 75 mg Carbidopa/Levodopa (Sinemet 10/100) 1 tab PO QID [facility] Last Admin: 08/29/18 21:56 Dose: 1 tab Carbidopa/Levodopa (Sinemet Cr) 2 tab PO BRK [facility] Last Admin: 08/29/18 08:32 Dose: 2 tab Clonazepam (Klonopin) 0.5 mg PO BID [facility] Last Admin: 08/29/18 17:08 Dose: 0.5 mg Cefazolin Sodium/Dextrose (Ancef Iv 1 Gm Duplex) 1 gm in 50 mls @ 100 mls/hr IVPB Q8H [facility]; Protocol Last Admin: 08/29/18 18:57 Dose: 100 mls/hr Vancomycin/Sodium Chloride (Vancomycin 1 Gm/Ns 200 Ml) 1 gm in 200 mls @ 133.333 mls/hr IVPB Q12H [facility]; Protocol Stop: 09/01/18 17:01 Last Admin: 08/29/18 17:09 Dose: 133.333 mls/hr Ibuprofen (Motrin Tab) 400 mg PO TID PRN PRN Reason: Pain, moderate (4-7) Last Admin: 08/29/18 05:35 Dose: 400 mg Mupirocin (Bactroban Ointment) 0 gm TOP DAILY [facility] Last Admin: 08/29/18 09:08 Dose: 1 applic Pantoprazole Sodium (Protonix Ec Tab) 40 mg PO DAILY [facility] Last Admin: 08/29/18 09:08 Dose: 40 mg Quetiapine Fumarate (Seroquel) 25 mg PO HS [facility] Last Admin: 08/29/18 21:55 Dose: 25 mg Vitamin A (Vitamin A & D Oint Ud Foilpak) 1 ea TOP BID [facility] Last Admin: 08/29/18 17:09 Dose: 1 ea Zolpidem Tartrate (Ambien) 5 mg PO HS PRN PRN Reason: Insomnia Last Admin: 08/28/18 01:27 Dose: 5 mg Physical Exam - Constitutional Appears: Well, No Acute Distress, Chronically Ill - Head Exam Head Exam: ATRAUMATIC, NORMOCEPHALIC - Eye Exam Eye Exam: Normal appearance. absent: Conjunctival injection, Scleral icterus - ENT Exam ENT Exam: Mucous Membranes Moist, Normal Oropharynx - Respiratory Exam Respiratory Exam: NORMAL BREATHING PATTERN. absent: Accessory Muscle Use, Respiratory Distress - Cardiovascular Exam Cardiovascular Exam: RRR - GI/Abdominal Exam GI & Abdominal Exam: Soft. absent: Distended, Tenderness - Extremities Exam Extremities exam: Positive for: pedal edema (trace BL non-pitting pedal edema), pedal pulses present. Negative for: calf tenderness - Back Exam Back exam: absent: CVA tenderness (L), CVA tenderness (R) Additional comments: area of superficial skin breakdown in the sacral area approximately 20cm in diameter, just through the epidermis, with 4 areas of ulcers into the superficial dermis on the right buttock. No fluctance, no surrounding erythema, no drainage, no bleeding, no necrotic eschar - Neurological Exam Neurological exam: Alert, Oriented x3 - Psychiatric Exam Psychiatric exam: Normal Affect, Normal Mood - Skin Skin Exam: Dry, Normal Color, Warm Results - Vital Signs Recent Vital Signs: Last Vital Signs Temp 97.9 F 08/29/18 16:00 Pulse 107 H 08/29/18 16:00 Resp 20 08/29/18 16:00 BP 140/84 08/29/18 16:00 Pulse Ox 96 08/29/18 16:00 - Labs Result Diagrams: 08/29/18 07:20 08/29/18 07:20 Labs: Laboratory Results - last 24 hr 08/29/18 08/29/18 08/29/18 07:20 07:20 17:22 WBC 17.3 H RBC 5.56 Hgb 16.0 Hct 46.3 MCV 83.3 MCH 28.8 MCHC 34.5 RDW 16.8 H Plt Count 722 H MPV 7.3 Sodium 138 Potassium 4.0 Chloride 100 Carbon Dioxide 26 Anion Gap 16 BUN 16 Creatinine 0.8 Est GFR ( Amer) > 60 Est GFR (Non-Af Amer) > 60 Random Glucose 101 Calcium 9.9 Procalcitonin < 0.05 L Assessment & Plan - Assessment and Plan (Free Text) Assessment: 53m with Parkinsons disease with superficial pressure wound of the sacrum--stage 1-2, with no signs of infection Plan: Optifoam with medihoney or silvadene--local wound care to be performed by nursing/wound care nurse Recommend recliner and air mattress, changing position Q2 hours Will follow up CT of the lumbar spine to assess for any abscess or underlying injury that needs debridement Continue to trend CBC Continue antibiotics per ID Medical management per primary and neuro and psych No surgical intervention indicated at this time Will discuss with Dr. Milian, further recs per him Tessa Cao, PGY2 <Trey Milian - Last Filed: 08/30/18 17:02> Meds - Medications Medications: Current Medications Acetaminophen (Tylenol 325mg Tab) 650 mg PO Q6 PRN PRN Reason: for c/o back pain Last Admin: 08/29/18 08:31 Dose: 650 mg Bupropion HCl (Wellbutrin) 75 mg PO DAILY [facility] Last Admin: 08/30/18 11:21 Dose: Not Given Carbidopa/Levodopa (Sinemet) 1 tab PO TID [facility] Carbidopa/Levodopa (Sinemet Cr) 1 tab PO BIDCC [facility] Stop: 09/05/18 17:00 Clonazepam (Klonopin) 0.5 mg PO BID [facility] Last Admin: 08/30/18 09:28 Dose: 0.5 mg Cefazolin Sodium/Dextrose (Ancef Iv 1 Gm Duplex) 1 gm in 50 mls @ 100 mls/hr IVPB Q8H [facility]; Protocol Last Admin: 08/30/18 13:26 Dose: 100 mls/hr Vancomycin/Sodium Chloride (Vancomycin 1 Gm/Ns 200 Ml) 1 gm in 200 mls @ 133.333 mls/hr IVPB Q12H [facility]; Protocol Stop: 09/01/18 17:01 Last Admin: 08/30/18 05:18 Dose: 133.333 mls/hr Ibuprofen (Motrin Tab) 400 mg PO TID PRN PRN Reason: Pain, moderate (4-7) Last Admin: 08/29/18 05:35 Dose: 400 mg Mupirocin (Bactroban Ointment) 0 gm TOP DAILY [facility] Last Admin: 08/30/18 13:33 Dose: 1 applic Pantoprazole Sodium (Protonix Ec Tab) 40 mg PO DAILY [facility] Last Admin: 08/30/18 11:21 Dose: 40 mg Quetiapine Fumarate (Seroquel) 25 mg PO HS [facility] Last Admin: 08/29/18 21:55 Dose: 25 mg Silver Sulfadiazine (Silvadene 1% 20 Gm) 1 ea TOP BID [facility] Last Admin: 08/30/18 13:34 Dose: 1 applic Vitamin A (Vitamin A & D Oint Ud Foilpak) 1 ea TOP BID [facility] Last Admin: 08/30/18 13:35 Dose: 1 ea Zolpidem Tartrate (Ambien) 5 mg PO HS PRN PRN Reason: Insomnia Last Admin: 08/28/18 01:27 Dose: 5 mg Results - Vital Signs Recent Vital Signs: Last Vital Signs Temp 97.5 F L 08/30/18 15:00 Pulse 98 H 08/30/18 15:00 Resp 20 08/30/18 15:00 BP 132/80 08/30/18 15:00 Pulse Ox 95 08/30/18 15:00 - Labs Result Diagrams: 08/30/18 04:38 08/30/18 04:38 Labs: Laboratory Results - last 24 hr 08/29/18 08/30/18 08/30/18 17:22 04:38 04:38 WBC 15.6 H RBC 5.50 Hgb 15.2 Hct 46.4 MCV 84.3 MCH 27.7 MCHC 32.9 L RDW 16.6 H Plt Count 650 H MPV 7.5 Sodium Potassium Chloride Carbon Dioxide Anion Gap BUN Creatinine Est GFR ( Amer) Est GFR (Non-Af Amer) Random Glucose Calcium Procalcitonin < 0.05 L Vancomycin Trough 8.0 08/30/18 04:38 WBC RBC Hgb Hct MCV MCH MCHC RDW Plt Count MPV Sodium 141 Potassium 4.2 Chloride 99 Carbon Dioxide 30 Anion Gap 16 BUN 20 Creatinine 0.8 Est GFR ( Amer) > 60 Est GFR (Non-Af Amer) > 60 Random Glucose 103 Calcium 9.7 Procalcitonin Vancomycin Trough Attending/Attestation - Attestation I have personally seen and examined this patient.: Yes I have fully participated in the care of the patient.: Yes I have reviewed all pertinent clinical information: Yes Notes (Text): Pt was seen and examined at bedside Agree with above note and assessment Pt is 53 year old male with Parkinson's disease with Gluteal Cellulitis and Stage 2 ulcer. Pt would need CT scan of pelvis as adviced by Dr.Mangia Slaughter IV antibiotics Local wound care We will f.u Plan jaguarw pt in detail Risk and benefit explained in detail.
[2018-08-30] MEDS: ceFAZolin IV 1 gm in Dextrose 1 GM/50 ML BAG IVPB SCH ×3 (03:15→19:07)
[2018-08-30] MEDS: Silver Sulfadiazine 1% Cream (20 gm) TOP SCH ×3 (04:15→17:27)
[2018-08-30 04:47] LABS: HEMOGLOBIN 15.2 g/dL (12.0-18.0); MEAN CELL VOLUME 84.3 fL (80.0-94.0); MEAN CORPUSCULAR HEMOGLOBIN 27.7 pg (27.0-31.0); MEAN CORPUSCULAR HGB CONC 32.9 g/dL (33.0-37.0); MEAN PLATELET VOLUME 7.5 fL (7.2-11.7); RBC 5.5 Mil/uL (4.40-5.90); RED CELL DISTRIBUTION WIDTH 16.6 % (11.5-14.5); WHITE BLOOD COUNT 15.6 K/uL (4.8-10.8)
[2018-08-30] MEDS: Vancomycin 1 gm/NS 200 ml 1 GM/200 ML BAG IVPB SCH ×2 (05:18→17:28)
[2018-08-30 05:20] LABS: BLOOD UREA NITROGEN 20 mg/dL (9-20); CALCIUM 9.7 mg/dl (8.6-10.4); GFR NON-AFRICAN AMERICAN > 60
--- NOTE | 2018-08-30 07:14 | PN ---
DATE: 08/29/2018 SUBJECTIVE: The patient is a 53-year-old male. The patient seen and examined on the bedside on 08/29/2018, looking comfortable, still having pain in the sacral area, getting numb, cellulitis, the size was decreasing, but was still there. Seems that some portion of part of the skin is getting black. PHYSICAL EXAMINATION: VITAL SIGNS: Temperature 98.1, pulse 97, respirations 20, blood pressure 144/86, pulse oximetry 96. HEENT: Head: Normocephalic and atraumatic. Eyes: PERRLA. Extraocular muscles intact. Conjunctivae clear. Nose patent. Mucous membranes moist. NECK: Supple. No carotid bruits. No JVD. No thyromegaly. CHEST: Bilaterally symmetrical. HEART: S1, S2 positive. LUNGS: Clear to auscultation. ABDOMEN: Soft. Bowel sounds are present. No organomegaly. EXTREMITIES: No edema. No cyanosis. NEUROLOGIC: The patient is awake, alert, moving all four extremities. No focal deficits. MEDICATIONS: Tylenol, Wellbutrin, Sinemet, Klonopin, vancomycin, ibuprofen, Bactroban, Protonix, Seroquel, vitamin A and B. LABS: White blood cells 17.3, hemoglobin 15, hematocrit 46.3, platelets 772,000. Sodium 138, potassium 4, BUN 16, creatinine 0.3, glucose 101. ASSESSMENT AND PLAN: The patient is a 53-year-old male with leukocytosis, thrombocytosis, who came with drug overdose, intentional, major depressive disorder, recurrent, severe without psychotic features, Parkinson's disease. Now he has cellulitis of the sacral area, white blood cells trending up, and he was given platelets. We will do CAT scan of the sacral spine. We will have Surgical/Hematology consult. negative so far and according to Infectious Disease, the patient will need surgical and Hematology evaluation. We will work on that. We will follow up. Janee Mark MD [id number]
--- NOTE | 2018-08-30 07:17 | PN ---
DATE: 08/28/2018 SUBJECTIVE: The patient is a 53-year-old male. The patient was seen and examined at the bedside. Looking comfortable. He has a friend sitting on the bedside. He gave me permission to discuss his situation with the friend. Length of time discussion was done with the friend. All questions were answered. He is still having pain in the back but is getting better. No fever. No chills. No nausea, vomiting, or diarrhea. No hematuria or hematochezia. No swelling of the legs. No chest pain or palpitation. No headache or dizziness. PHYSICAL EXAMINATION: VITAL SIGNS: Temperature 98.1, pulse 108, respiratory rate 20, blood pressure 136/86, pulse oximetry 96. HEENT: Head normocephalic, atraumatic. Eyes PERRLA. Extraocular movements intact. Conjunctivae clear. Nose patent. Mucous membranes moist. NECK: Supple. No carotid bruits, JVD or thyromegaly. CHEST: Bilaterally symmetrical. HEART: S1 and S2 positive. LUNGS: Clear to auscultation. ABDOMEN: Soft. Bowel sounds present. No organomegaly. EXTREMITIES: No edema. No cyanosis. NEUROLOGIC: The patient is awake and alert. Moving all four extremities. No focal deficits. MEDICATIONS: Tylenol, Wellbutrin, levodopa/carbidopa, Klonopin, dextrose, Bactroban, pantoprazole, Ambien. LABORATORY DATA: White blood cells 15.9, hemoglobin 15.9, hematocrit 47.6, platelets 724. Sodium 139, potassium 4.3, BUN 70, creatinine 0.8, glucose 116. ASSESSMENT AND PLAN: The patient is a 53-year-old male with leukocytosis, thrombocytosis, hyperglycemia, history of parkinsonism, on levodopa. Continue carbidopa/levodopa. Cellulitis of the back, getting antibiotics from Dr. Gannon. Recommended to continue intravenous antibiotics, Ancef and vancomycin for seven more days. Starting regimen on 08/28/2018 and last day for doses is 09/04/2018. Physical Therapy is recommending physical therapy for unsteady gait. History of depression and anxiety. Continue current treatment. Gastrointestinal and deep venous thrombosis prophylaxis. Appreciated the tape recorder repairer, Infectious Disease, and Psychiatric input. We will follow up. Janee Mark MD [facility] # [id number] FAISAL
--- NOTE | 2018-08-30 07:18 | PN ---
DATE: 08/27/2018 SUBJECTIVE: The patient is a 53-year-old male. The patient is seen and examined at the bedside. Looking comfortable. No fever, no chills, nausea, vomiting, diarrhea, hematuria, or hematochezia. No swelling of the legs. No chest pain or palpitation. Has rash on the sacral area, and according to the patient, he is feeling numb. PHYSICAL EXAMINATION: VITAL SIGNS: Temperature 98.3, pulse 101, blood pressure 125/81, and respiratory rate 20. HEENT: Head, normocephalic and atraumatic. Eyes, PERRLA. Extraocular movements are intact. Conjunctivae clear. Nose patent. Mucous membranes are moist. NECK: Supple. No carotid bruits, JVD, or thyromegaly. CHEST: Bilaterally symmetrical. HEART: S1 and S2 are positive. LUNGS: Clear to auscultation. ABDOMEN: Soft. Bowel sounds present. No organomegaly. EXTREMITIES: No edema. No cyanosis. NEUROLOGIC: The patient is awake and alert. Moving all four extremities. No focal deficits. MEDICATIONS: Ambien, cefazolin, Bactroban, Klonopin, Protonix, Seroquel, Sinemet, Tylenol, vancomycin, and Wellbutrin. LABORATORY DATA: We do not have recent lab today, but I reviewed old labs. ASSESSMENT AND PLAN: The patient is a 53-year-old male with leukocytosis. White blood cells are trending up. Abnormal liver function test. Drug screening was positive with cannabinoid. Hepatitis negative. Has cellulitis over the sacral area, which is worse and now associated with leukocytosis, but no fever. All these started during the episode of unconsciousness before hospitalization. Infectious Disease is on the case. The patient was admitted on medical floor, transferred to the Psych because of her psych problem, alcohol, and due to suicidal plan. Now, we brought the patient back to medical floor because of increasing white blood cell and need IV antibiotics. Ep Technologist, Dr. David Orourke is on the case. The patient has tachycardia, has Parkinsonism. Neurologist is on the case. Continue current treatment. Repeat laboratories. We will follow up. Janee Mark MD
--- NOTE | 2018-08-30 07:58 | CP.PCM.PN ---
<Oswald Velazco - Last Filed: 08/30/18 07:55> Subjective - Date & Time of Evaluation Date of Evaluation: 08/30/18 Time of Evaluation: 07:55 - Subjective Subjective: Gen Sx: Dr Milian Pt S&E. PAULO. No complaints. Tolerating diet. Denies f/c, n/v, sob or chest pain. Objective - Vital Signs/Intake and Output Vital Signs (last 24 hours): Temp Pulse Resp BP Pulse Ox 97.8 F 96 H 20 127/78 96 08/30/18 07:30 08/30/18 07:30 08/30/18 07:30 08/30/18 07:30 08/30/18 07:30 Intake and Output: 08/30/18 08/30/18 06:59 18:59 Intake Total 950 Output Total 600 Balance 350 - Medications Medications: Current Medications Acetaminophen (Tylenol 325mg Tab) 650 mg PO Q6 PRN PRN Reason: for c/o back pain Last Admin: 08/29/18 08:31 Dose: 650 mg Bupropion HCl (Wellbutrin) 75 mg PO DAILY [facility] Last Admin: 08/29/18 09:08 Dose: 75 mg Carbidopa/Levodopa (Sinemet 10/100) 1 tab PO QID [facility] Last Admin: 08/29/18 21:56 Dose: 1 tab Carbidopa/Levodopa (Sinemet Cr) 2 tab PO BRK [facility] Last Admin: 08/29/18 08:32 Dose: 2 tab Clonazepam (Klonopin) 0.5 mg PO BID [facility] Last Admin: 08/29/18 17:08 Dose: 0.5 mg Cefazolin Sodium/Dextrose (Ancef Iv 1 Gm Duplex) 1 gm in 50 mls @ 100 mls/hr IVPB Q8H [facility]; Protocol Last Admin: 08/30/18 03:15 Dose: 100 mls/hr Vancomycin/Sodium Chloride (Vancomycin 1 Gm/Ns 200 Ml) 1 gm in 200 mls @ 133.333 mls/hr IVPB Q12H [facility]; Protocol Stop: 09/01/18 17:01 Last Admin: 08/30/18 05:18 Dose: 133.333 mls/hr Ibuprofen (Motrin Tab) 400 mg PO TID PRN PRN Reason: Pain, moderate (4-7) Last Admin: 08/29/18 05:35 Dose: 400 mg Mupirocin (Bactroban Ointment) 0 gm TOP DAILY [facility] Last Admin: 08/29/18 09:08 Dose: 1 applic Pantoprazole Sodium (Protonix Ec Tab) 40 mg PO DAILY [facility] Last Admin: 08/29/18 09:08 Dose: 40 mg Quetiapine Fumarate (Seroquel) 25 mg PO HS [facility] Last Admin: 08/29/18 21:55 Dose: 25 mg Silver Sulfadiazine (Silvadene 1% 20 Gm) 1 ea TOP BID [facility] Last Admin: 08/30/18 04:15 Dose: 1 applic Vitamin A (Vitamin A & D Oint Ud Foilpak) 1 ea TOP BID [facility] Last Admin: 08/29/18 17:09 Dose: 1 ea Zolpidem Tartrate (Ambien) 5 mg PO HS PRN PRN Reason: Insomnia Last Admin: 08/28/18 01:27 Dose: 5 mg - Labs Labs: 08/30/18 04:38 08/30/18 04:38 - Constitutional Appears: Non-toxic - Eye Exam Eye Exam: Normal appearance - Respiratory Exam Respiratory Exam: absent: Respiratory Distress - Cardiovascular Exam Cardiovascular Exam: absent: Tachycardia - GI/Abdominal Exam GI & Abdominal Exam: Soft. absent: Distended - Skin Additional comments: stage 1 sacral decubitus Assessment and Plan - Assessment and Plan (Free Text) Assessment: 52M w/ stage I/II decubitus Plan: no surgical intervention planned medihoney, optifoam, roll q1h for pressure off loading clinitron bed recommended d/w Dr Maicol Velazco, PGY4 <Trey Milian B - Last Filed: 08/30/18 17:04> Objective - Vital Signs/Intake and Output Vital Signs (last 24 hours): Temp Pulse Resp BP Pulse Ox 97.5 F L 98 H 20 132/80 95 08/30/18 15:00 08/30/18 15:00 08/30/18 15:00 08/30/18 15:00 08/30/18 15:00 Intake and Output: 08/30/18 08/30/18 06:59 18:59 Intake Total 950 Output Total 600 Balance 350 - Medications Medications: Current Medications Acetaminophen (Tylenol 325mg Tab) 650 mg PO Q6 PRN PRN Reason: for c/o back pain Last Admin: 08/29/18 08:31 Dose: 650 mg Bupropion HCl (Wellbutrin) 75 mg PO DAILY [facility] Last Admin: 08/30/18 11:21 Dose: Not Given Carbidopa/Levodopa (Sinemet) 1 tab PO TID [facility] Carbidopa/Levodopa (Sinemet Cr) 1 tab PO BIDCC [facility] Stop: 09/05/18 17:00 Clonazepam (Klonopin) 0.5 mg PO BID [facility] Last Admin: 08/30/18 09:28 Dose: 0.5 mg Cefazolin Sodium/Dextrose (Ancef Iv 1 Gm Duplex) 1 gm in 50 mls @ 100 mls/hr IVPB Q8H [facility]; Protocol Last Admin: 08/30/18 13:26 Dose: 100 mls/hr Vancomycin/Sodium Chloride (Vancomycin 1 Gm/Ns 200 Ml) 1 gm in 200 mls @ 133.333 mls/hr IVPB Q12H [facility]; Protocol Stop: 09/01/18 17:01 Last Admin: 08/30/18 05:18 Dose: 133.333 mls/hr Ibuprofen (Motrin Tab) 400 mg PO TID PRN PRN Reason: Pain, moderate (4-7) Last Admin: 08/29/18 05:35 Dose: 400 mg Mupirocin (Bactroban Ointment) 0 gm TOP DAILY [facility] Last Admin: 08/30/18 13:33 Dose: 1 applic Pantoprazole Sodium (Protonix Ec Tab) 40 mg PO DAILY [facility] Last Admin: 08/30/18 11:21 Dose: 40 mg Quetiapine Fumarate (Seroquel) 25 mg PO HS [facility] Last Admin: 08/29/18 21:55 Dose: 25 mg Silver Sulfadiazine (Silvadene 1% 20 Gm) 1 ea TOP BID [facility] Last Admin: 08/30/18 13:34 Dose: 1 applic Vitamin A (Vitamin A & D Oint Ud Foilpak) 1 ea TOP BID [facility] Last Admin: 08/30/18 13:35 Dose: 1 ea Zolpidem Tartrate (Ambien) 5 mg PO HS PRN PRN Reason: Insomnia Last Admin: 08/28/18 01:27 Dose: 5 mg - Labs Labs: 08/30/18 04:38 10/22/18 04:38 Attending/Attestation - Attestation I have personally seen and examined this patient.: Yes I have fully participated in the care of the patient.: Yes I have reviewed all pertinent clinical information, including history, physical exam and plan: Yes Notes (Text): Pt was seen and examined at bedside Agree with above note and assessment Pt with Parkinson's disease with Gluteal Cellulitis and Stage [address] scan of Pelvis C.w IV antibiotics Local wound care Plan d.w pt in detail
[2018-08-30] MEDS: Carbidopa/Levodopa 25/100 CR PO SCH ×2 (08:57→17:26)
--- NOTE | 2018-08-30 10:56 | CT ---
Date of service: 08/30/2018 PROCEDURE: CT lumbosacral spine without contrast HISTORY: r/o osteomyelitis sacrum + local redness / pain COMPARISON: MRI lumbar spine 03/14/2015 TECHNIQUE: Axial computed tomography images were obtained of the lumbar spine without the use of intravenous contrast. Coronal and sagittal reformatted images were created and reviewed. Radiation dose: Total exam DLP = 616.34 mGy-cm. This CT exam was performed using one or more of the following dose reduction techniques: Automated exposure control, adjustment of the mA and/or kV according to patient size, and/or use of iterative reconstruction technique. FINDINGS: VERTEBRAE: Lumbar vertebral body heights are maintained. There is multilevel small anterior and posterior osteophyte formation. There is moderate disc space narrowing at L3-L4 with vacuum disc phenomenon, moderate disc space narrowing at L4-L5 with vacuum disc phenomena, and severe disc space narrowing at L5-S1 with vacuum disc phenomena. Schmorl's node formation noted along the superior endplate L4. There are multilevel endplate degenerative changes at L3-L4, L4-L5, and L5-S1. No decorticated bone identified to suggest osteomyelitis. DISCS/SPINAL CANAL/NEURAL FORAMINA: L1-2: No significant disc bulge, spinal canal stenosis, or neural foraminal stenosis. L2-3: Disc bulge produces mild spinal canal stenosis. Moderate bilateral neural foraminal stenosis. L3-4: Disc bulge produces moderate spinal canal stenosis. Severe right and moderate to severe left neural foraminal stenosis. L4-5: Disc bulge produces moderate spinal canal stenosis.Severe right and moderate to severe left neural foraminal stenosis. L5-S1: Disc bulge and posterior osteophyte produce mild spinal canal stenosis. Severe bilateral neural foraminal stenosis. PARASPINAL SOFT TISSUES: There is left adrenal thickening versus a nodule. Visualized right adrenal gland appears unremarkable. Visualized kidneys are unremarkable. Visualized portions of liver and spleen are grossly unremarkable. There is no abnormal small or large bowel dilatation of the visualized bowel. Large amount of stool noted in the rectum. Prostatic calcifications are seen. Visualized urinary bladder is unremarkable. There is no significant retroperitoneal lymphadenopathy. Abdominal aorta is normal in caliber. There is presence of aortic atherosclerotic calcification. OTHER FINDINGS: There are diffuse inflammatory changes and fluid in the subcutaneous fat of the lower back beginning at the level of L2 and extending to the inferior aspect of the sacrum. IMPRESSION: There are diffuse inflammatory changes and fluid in the subcutaneous fat of the lower back beginning at the level of L2 and extending to the inferior aspect of the sacrum. Findings may represent cellulitis. No decorticated bone identified to suggest osteomyelitis. Multilevel disc bulges as above with moderate spinal canal stenosis at L3-L4 and L4-L5. Severe bilateral neural foraminal stenosis at L3-L4 on the right, L4-L5 on the right, and L5-S1 bilaterally. Additional findings as above.
[2018-08-30] MEDS: Pantoprazole 40 mg EC Tab PO SCH (11:21)
--- NOTE | 2018-08-30 11:56 | CP.PCM.PN ---
Subjective - Date & Time of Evaluation Date of Evaluation: 08/30/18 Time of Evaluation: 10:00 - Subjective Subjective: afeb Objective - Vital Signs/Intake and Output Vital Signs (last 24 hours): Temp Pulse Resp BP Pulse Ox 97.8 F 96 H 20 127/78 96 08/30/18 07:30 08/30/18 07:30 08/30/18 07:30 08/30/18 07:30 08/30/18 07:30 Intake and Output: 08/30/18 08/30/18 06:59 18:59 Intake Total 950 Output Total 600 Balance 350 - Medications Medications: Current Medications Acetaminophen (Tylenol 325mg Tab) 650 mg PO Q6 PRN PRN Reason: for c/o back pain Last Admin: 08/29/18 08:31 Dose: 650 mg Bupropion HCl (Wellbutrin) 75 mg PO DAILY [facility] Last Admin: 08/30/18 11:21 Dose: Not Given Carbidopa/Levodopa (Sinemet 10/100) 1 tab PO QID [facility] [place] Last Admin: 08/30/18 09:23 Dose: 1 tab Carbidopa/Levodopa (Sinemet Cr) 2 tab PO BRK [facility] [place] Last Admin: 08/30/18 08:57 Dose: 2 tab Clonazepam (Klonopin) 0.5 mg PO BID [facility] [place] Last Admin: 08/30/18 09:28 Dose: 0.5 mg Cefazolin Sodium/Dextrose (Ancef Iv 1 Gm Duplex) 1 gm in 50 mls @ 100 mls/hr IVPB Q8H [facility]; Protocol Last Admin: 08/30/18 03:15 Dose: 100 mls/hr Vancomycin/Sodium Chloride (Vancomycin 1 Gm/Ns 200 Ml) 1 gm in 200 mls @ 133 .333 mls/hr IVPB Q12H [facility]; Protocol Stop: 09/01/18 17:01 Last Admin: 08/30/18 05:18 Dose: 133.333 mls/hr Ibuprofen (Motrin Tab) 400 mg PO TID PRN PRN Reason: Pain, moderate (4-7) Last Admin: 08/29/18 05:35 Dose: 400 mg Mupirocin (Bactroban Ointment) 0 gm TOP DAILY [facility] Last Admin: 08/29/18 09:08 Dose: 1 applic Pantoprazole Sodium (Protonix Ec Tab) 40 mg PO DAILY [facility] [place] Last Admin: 08/30/18 11:21 Dose: 40 mg Quetiapine Fumarate (Seroquel) 25 mg PO HS [facility] Last Admin: 08/29/18 21:55 Dose: 25 mg Silver Sulfadiazine (Silvadene 1% 20 Gm) 1 ea TOP BID [facility] [place] Last Admin: 08/30/18 04:15 Dose: 1 applic Vitamin A (Vitamin A & D Oint Ud Foilpak) 1 ea TOP BID [facility] [place] Last Admin: 08/29/18 17:09 Dose: 1 ea Zolpidem Tartrate (Ambien) 5 mg PO HS PRN PRN Reason: Insomnia Last Admin: 08/28/18 01:27 Dose: 5 mg - Labs Labs: 08/30/18 04:38 08/30/18 04:38 - Constitutional Appears: Non-toxic, Chronically Ill - Head Exam Head Exam: NORMOCEPHALIC - Eye Exam Eye Exam: PERRL - ENT Exam ENT Exam: Mucous Membranes Dry - Neck Exam Neck Exam: absent: Lymphadenopathy - Respiratory Exam Respiratory Exam: Decreased Breath Sounds - Cardiovascular Exam Cardiovascular Exam: REGULAR RHYTHM Assessment and Plan (1) Drug overdose, intentional Status: Acute (2) Major depressive disorder, recurrent severe without psychotic features Status: Acute (3) Parkinson disease Status: Chronic
[2018-08-30] MEDS: Vitamins A & D Oint UD Foilpak TOP SCH ×2 (13:35→17:30)
[2018-08-30] MEDS ORDERED: Carbidopa/Levodopa 50/200 CR PO SCH (17:00)
[2018-08-30] MEDS ORDERED: Carbidopa/Levodopa 50/200 CR PO ONE (17:00)
--- NOTE | 2018-08-30 17:19 | CP.PCM.PN ---
Subjective - Date & Time of Evaluation Date of Evaluation: 08/30/18 Time of Evaluation: 12:40 - Subjective Subjective: Patient seen today, awake, alert, ox3, c/o stiffness after 2 hr of taking sinement, states current dose not working ,requested to increase his sinment vss- reviewed and stable labs- wbc- trending down Objective - Vital Signs/Intake and Output Vital Signs (last 24 hours): Temp Pulse Resp BP Pulse Ox 97.5 F L 98 H 20 132/80 95 08/30/18 15:00 08/30/18 15:00 08/30/18 15:00 08/30/18 15:00 08/30/18 15:00 Intake and Output: 08/30/18 08/30/18 06:59 18:59 Intake Total 950 Output Total 600 Balance 350 - Medications Medications: Current Medications Acetaminophen (Tylenol 325mg Tab) 650 mg PO Q6 PRN PRN Reason: for c/o back pain Last Admin: 08/29/18 08:31 Dose: 650 mg Bupropion HCl (Wellbutrin) 75 mg PO DAILY [facility] Last Admin: 08/30/18 11:21 Dose: Not Given Carbidopa/Levodopa (Sinemet) 1 tab PO TID [facility] Carbidopa/Levodopa (Sinemet Cr) 2 tab PO BIDCC [facility] Stop: 09/05/18 17:00 Clonazepam (Klonopin) 0.5 mg PO BID [facility] Last Admin: 08/30/18 09:28 Dose: 0.5 mg Cefazolin Sodium/Dextrose (Ancef Iv 1 Gm Duplex) 1 gm in 50 mls @ 100 mls/hr IVPB Q8H [facility]; Protocol Last Admin: 08/30/18 13:26 Dose: 100 mls/hr Vancomycin/Sodium Chloride (Vancomycin 1 Gm/Ns 200 Ml) 1 gm in 200 mls @ 133.333 mls/hr IVPB Q12H [facility]; Protocol Stop: 09/01/18 17:01 Last Admin: 08/30/18 05:18 Dose: 133.333 mls/hr Ibuprofen (Motrin Tab) 400 mg PO TID PRN PRN Reason: Pain, moderate (4-7) Last Admin: 08/29/18 05:35 Dose: 400 mg Mupirocin (Bactroban Ointment) 0 gm TOP DAILY [facility] Last Admin: 08/30/18 13:33 Dose: 1 applic Pantoprazole Sodium (Protonix Ec Tab) 40 mg PO DAILY [facility] Last Admin: 08/30/18 11:21 Dose: 40 mg Quetiapine Fumarate (Seroquel) 25 mg PO HS [facility] Last Admin: 08/29/18 21:55 Dose: 25 mg Silver Sulfadiazine (Silvadene 1% 20 Gm) 1 ea TOP BID [facility] Last Admin: 08/30/18 13:34 Dose: 1 applic Vitamin A (Vitamin A & D Oint Ud Foilpak) 1 ea TOP BID [facility] Last Admin: 08/30/18 13:35 Dose: 1 ea Zolpidem Tartrate (Ambien) 5 mg PO HS PRN PRN Reason: Insomnia Last Admin: 08/28/18 01:27 Dose: 5 mg - Labs Labs: 08/30/18 04:38 08/30/18 04:38 Assessment and Plan - Assessment and Plan (Free Text) Assessment: A/P 53 yr old mal e with hx of parkinsons disease admitted with overdose the sacral wound stage1/stage2 was assessed with data recovery planner leo and see treatment recommendations CT - lumbar spine done - awaiting report Patient requesting to see Dr. Rodriguez ( neurologist) to discuss his parkinsons medication, current dose seems not working needs dose adjustment call placed to Dr. Rodriguez office awaiting call back D/w patient ref. antibiotics and possible AZRA for continue antibiotics for the cellulites of sacral area
[2018-08-31] MEDS: ceFAZolin IV 1 gm in Dextrose 1 GM/50 ML BAG IVPB SCH ×3 (03:27→18:52)
--- NOTE | 2018-08-31 04:20 | PN ---
DATE: 08/30/2018 SUBJECTIVE: The patient is a 53-year-old male. The patient was see and examined at bedside on 08/30/2018. Looking comfortable. Still anxious and tremor due to parkinsonism. Rash on the back is still there. Back x-ray was done, shows that it is not in the bone. The patient is alert and oriented x3. Complaining of stiffness after two hours of taking his Sinemet. States currently it is not working. Requesting to increase his Sinemet. Nurse practitioner, Susana Borrero, called Dr. Cosme because according to the patient that stiffness after two hours of his Sinemet. The patient needs more control. That was spoken to the patient over the phone as per Dr. Cosme. He will increase the dose starting 6 p.m. today and will see the patient in the a.m. The above plan was discussed with the patient who agrees. PHYSICAL EXAMINATION: VITAL SIGNS: Temperature 97.5, pulse 98, respiratory rate 20, blood pressure 113/80, pulse oximetry 95%. HEENT: Head is normocephalic and atraumatic. Eyes PERRLA. Extraocular movements intact. Conjunctivae clear. Nose patent. Mucous membranes moist. NECK: Supple. No carotid bruits, JVD or thyromegaly. CHEST: Bilaterally symmetrical. HEART: S1 and S2 positive. LUNGS: Clear to auscultation. ABDOMEN: Soft. Bowel sounds present. No organomegaly. EXTREMITIES: No edema. No cyanosis. NEUROLOGIC: The patient is awake and alert. Follows simple commands. MEDICATIONS: Tylenol, Wellbutrin, Sinemet, Klonopin, Ancef, vancomycin, ibuprofen. LABORATORY DATA: White blood cells 15.6, hemoglobin 15.2, hematocrit 46.4, platelets 650. Sodium 141, potassium 4.2, BUN 20, creatinine 0.7, glucose 103. ASSESSMENT AND PLAN: Mr. Chele Jain is a 53-year-old male with leukocytosis, thrombocytosis, history of Parkinson's disease. Admitted with overdose. Had sacral wound stage I/stage II. He was assessed with wound care nurse and to see treatment and recommendation. A CT scan of the spine was done that was negative for osteomyelitis. Dr. Valdez and nurse practitioner, Jesenia, talked to the patient, increased dose of Sinemet and decreased the gap. Again, the patient's neurologist will be called in before. The patient has no fever, no chills, no nausea or vomiting. No hematuria or hematochezia. No swelling of the legs. Maybe the patient has to go to subactue rehabilitation. We will talk to the patient. Repeat labs. We will follow up. Janee Mark MD MTDD
[2018-08-31] MEDS: Vancomycin 1 gm/NS 200 ml 1 GM/200 ML BAG IVPB SCH ×2 (04:59→17:35)
[2018-08-31] MEDS: Carbidopa/Levodopa 25/100 CR PO SCH ×3 (07:56→21:20)
[2018-08-31 08:19] LABS: BASO # 0.2 K/uL (0.0-0.2); BASO % 1.3 % (0.0-2.0); EOS # 0.4 K/uL (0.0-0.7); EOS % 2.1 % (0.0-4.0); HEMOGLOBIN 15.4 g/dL (12.0-18.0); LYMPH # 1.5 K/uL (1.0-4.3); LYMPH % 9.1 % (20.0-40.0); MEAN CELL VOLUME 83.9 fL (80.0-94.0); MEAN CORPUSCULAR HEMOGLOBIN 28.6 pg (27.0-31.0); MEAN PLATELET VOLUME 7.4 fL (7.2-11.7); MONO # 0.5 K/uL (0.0-0.8); MONO % 3.3 % (0.0-10.0); NEUT % 84.2 % (50.0-75.0); NRBC % 0.1 % (0.0-2.0); PLATELET COUNT 692 K/uL (130-400); RED CELL DISTRIBUTION WIDTH 16.8 % (11.5-14.5); WHITE BLOOD COUNT 16.7 K/uL (4.8-10.8)
[2018-08-31] MEDS: Pantoprazole 40 mg EC Tab PO SCH (10:47)
[2018-08-31 10:52] LABS: BANDS 7 % (0-2); EOSINOPHIL 2 % (0-4); LYMPHOCYTE 6 % (20-40); MONOCYTE 3 % (0-10); NEUTROPHIL 81 % (50-75); REACTIVE LYMPHOCYTES 1 % (0-0); TOTAL CELLS COUNTED 100
[2018-08-31 10:53] LABS: ANISOCYTOSIS SLIGHT; OVALOCYTES SLIGHT; PLATELET ESTIMATE INCREASED (NORMAL)
[2018-08-31] MEDS: Silver Sulfadiazine 1% Cream (20 gm) TOP SCH ×2 (13:17→17:35)
[2018-08-31] MEDS: Vitamins A & D Oint UD Foilpak TOP SCH ×2 (13:18→17:35)
[2018-08-31] MEDS ORDERED: Carbidopa/Levodopa 25/100 CR PO ONE (15:00)
--- NOTE | 2018-08-31 17:53 | CP.PCM.PN ---
<Tessa Cao - Last Filed: 08/31/18 18:54> Subjective - Date & Time of Evaluation Date of Evaluation: 08/31/18 Time of Evaluation: 16:00 - Subjective Subjective: Surgery progress note for Dr. Milian Pt was seen and sacral wound was examined at bedside. Pt denies any pain in the sacral area, fevers or chills. Objective - Vital Signs/Intake and Output Vital Signs (last 24 hours): Temp Pulse Resp BP Pulse Ox 98.2 F 94 H 20 118/59 L 97 08/31/18 15:45 08/31/18 15:45 08/31/18 15:45 08/31/18 15:45 08/31/18 15:45 Intake and Output: 08/31/18 08/31/18 06:59 18:59 Intake Total 1100 Output Total 400 Balance 700 - Medications Medications: Current Medications Acetaminophen (Tylenol 325mg Tab) 650 mg PO Q6 PRN PRN Reason: for c/o back pain Last Admin: 08/29/18 08:31 Dose: 650 mg Bupropion HCl (Wellbutrin) 75 mg PO DAILY [facility] Last Admin: 08/31/18 10:44 Dose: Not Given Carbidopa/Levodopa (Sinemet) 1 tab PO TID [facility] Last Admin: 08/31/18 14:22 Dose: 1 tab Carbidopa/Levodopa (Sinemet Cr) 2 tab PO 2100 [facility] Carbidopa/Levodopa (Sinemet Cr) 2 tab PO 1800 [facility] Last Admin: 08/31/18 17:32 Dose: 2 tab Carbidopa/Levodopa (Sinemet Cr) 2 tab PO 0800 [facility] Stop: 09/05/18 17:31 Clonazepam (Klonopin) 0.5 mg PO BID [facility] Last Admin: 08/31/18 17:31 Dose: 0.5 mg Cefazolin Sodium/Dextrose (Ancef Iv 1 Gm Duplex) 1 gm in 50 mls @ 100 mls/hr IVPB Q8H [facility]; Protocol Last Admin: 08/31/18 13:15 Dose: 100 mls/hr Vancomycin/Sodium Chloride (Vancomycin 1 Gm/Ns 200 Ml) 1 gm in 200 mls @ 133.333 mls/hr IVPB Q12H [facility]; Protocol Stop: 09/01/18 17:01 Last Admin: 08/31/18 17:35 Dose: 133.333 mls/hr Ibuprofen (Motrin Tab) 400 mg PO TID PRN PRN Reason: Pain, moderate (4-7) Last Admin: 08/31/18 00:30 Dose: 400 mg Mupirocin (Bactroban Ointment) 0 gm TOP DAILY [facility] Last Admin: 08/31/18 13:16 Dose: 1 applic Pantoprazole Sodium (Protonix Ec Tab) 40 mg PO DAILY [facility] Last Admin: 08/31/18 10:47 Dose: 40 mg Quetiapine Fumarate (Seroquel) 25 mg PO HS [facility] Last Admin: 08/30/18 21:35 Dose: 25 mg Silver Sulfadiazine (Silvadene 1% 20 Gm) 1 ea TOP BID [facility] Last Admin: 08/31/18 17:35 Dose: 1 applic Vitamin A (Vitamin A & D Oint Ud Foilpak) 1 ea TOP BID [facility] Last Admin: 08/31/18 17:35 Dose: 1 ea Zolpidem Tartrate (Ambien) 5 mg PO HS PRN PRN Reason: Insomnia Last Admin: 08/28/18 01:27 Dose: 5 mg - Labs Labs: 08/31/18 08:07 08/30/18 04:38 - Constitutional Appears: Non-toxic, No Acute Distress, Chronically Ill - Head Exam Head Exam: ATRAUMATIC, NORMOCEPHALIC - Eye Exam Eye Exam: Normal appearance. absent: Scleral icterus - ENT Exam ENT Exam: Mucous Membranes Moist, Normal Oropharynx - Respiratory Exam Respiratory Exam: NORMAL BREATHING PATTERN. absent: Accessory Muscle Use, Respiratory Distress - GI/Abdominal Exam GI & Abdominal Exam: Soft. absent: Distended - Extremities Exam Extremities Exam: absent: Calf Tenderness, Pedal Edema, Tenderness - Neurological Exam Neurological Exam: Alert, Awake, Oriented x3 - Psychiatric Exam Psychiatric exam: Normal Affect, Normal Mood - Skin Additional comments: Stage one pressure wound of the sacrum is approximately 10 cm in diameter extending through the epidermis with beefy red dermis beneath. The wound includes small areas of ulceration into the superficial dermis localized to the lower right area of the wound (right buttock). No signs of infection, bleeding or necrotic eschar noted. No surrounding erythema Assessment and Plan - Assessment and Plan (Free Text) Assessment: 53M with Parkinsons Disease with stage 1-2 sacral pressure ulcer Plan: -continue local wound care as recommended by wound care nursing staff -will continue to follow -continue to trend CBC -continue antibiotics per ID -Continue pressure offloading measures -Continue PT Discussed with Dr. Maicol Cao, PGY2 <Trey Milian - Last Filed: 09/12/18 16:20> Objective - Vital Signs/Intake and Output Vital Signs (last 24 hours): Temp Pulse Resp BP Pulse Ox 98.9 F 90 20 134/79 96 09/02/18 07:25 09/02/18 07:25 09/02/18 07:25 09/02/18 07:25 09/02/18 07:25 - Labs Labs: 09/02/18 07:14 09/02/18 07:14 Attending/Attestation - Attestation I have personally seen and examined this patient.: Yes I have fully participated in the care of the patient.: Yes I have reviewed all pertinent clinical information, including history, physical exam and plan: Yes Notes (Text): Pt was seen and examined at bedside Agree with above note and assessment Cellulitis of Sacral and Back area is improving c.w IV antibiotics No general surgical intervention required c/w current mx Plan d.w pt in detail. Risk and benefit explained in detail.
--- NOTE | 2018-08-31 22:54 | CP.PCM.PN ---
Subjective - Date & Time of Evaluation Date of Evaluation: 08/31/18 Time of Evaluation: 14:05 - Subjective Subjective: Pt was seen and evaluated No cardiac symptoms Physical Examination - Constitutional Appears: Non-toxic, No Acute Distress, Chronically Ill - Head Exam Head Exam: ATRAUMATIC, NORMOCEPHALIC - Eye Exam Eye Exam: Normal appearance. absent: Scleral icterus - ENT Exam ENT Exam: Mucous Membranes Moist, Normal Oropharynx - Respiratory Exam Respiratory Exam: NORMAL BREATHING PATTERN. absent: Accessory Muscle Use, Respiratory Distress - GI/Abdominal Exam GI & Abdominal Exam: Soft. absent: Distended - Extremities Exam Extremities Exam: absent: Calf Tenderness, Pedal Edema, Tenderness - Neurological Exam Neurological Exam: Alert, Awake, Oriented x3 - Psychiatric Exam Psychiatric exam: Normal Affect, Normal Mood - Skin Additional comments: HTN Parkinson's disease Stable Objective - Vital Signs/Intake and Output Vital Signs (last 24 hours): Temp Pulse Resp BP Pulse Ox 98.2 F 94 H 20 118/59 L 97 08/31/18 15:45 08/31/18 15:45 08/31/18 15:45 08/31/18 15:45 08/31/18 15:45 - Medications Medications: Current Medications Acetaminophen (Tylenol 325mg Tab) 650 mg PO Q6 PRN PRN Reason: for c/o back pain Last Admin: 08/29/18 08:31 Dose: 650 mg Bupropion HCl (Wellbutrin) 75 mg PO DAILY [facility] Last Admin: 08/31/18 10:44 Dose: Not Given Carbidopa/Levodopa (Sinemet) 1 tab PO TID [facility] Last Admin: 08/31/18 18:09 Dose: 1 tab Carbidopa/Levodopa (Sinemet Cr) 2 tab PO 2100 [facility] Last Admin: 08/31/18 21:20 Dose: 2 tab Carbidopa/Levodopa (Sinemet Cr) 2 tab PO 1800 [facility] Last Admin: 08/31/18 17:32 Dose: 2 tab Carbidopa/Levodopa (Sinemet Cr) 2 tab PO 0800 [facility] Stop: 09/05/18 17:31 Clonazepam (Klonopin) 0.5 mg PO BID [facility] Last Admin: 08/31/18 17:31 Dose: 0.5 mg Cefazolin Sodium/Dextrose (Ancef Iv 1 Gm Duplex) 1 gm in 50 mls @ 100 mls/hr IVPB Q8H [facility]; Protocol Last Admin: 08/31/18 18:52 Dose: 100 mls/hr Vancomycin/Sodium Chloride (Vancomycin 1 Gm/Ns 200 Ml) 1 gm in 200 mls @ 133.333 mls/hr IVPB Q12H [facility]; Protocol Stop: 09/01/18 17:01 Last Admin: 08/31/18 17:35 Dose: 133.333 mls/hr Ibuprofen (Motrin Tab) 400 mg PO TID PRN PRN Reason: Pain, moderate (4-7) Last Admin: 08/31/18 00:30 Dose: 400 mg Mupirocin (Bactroban Ointment) 0 gm TOP DAILY [facility] Last Admin: 08/31/18 13:16 Dose: 1 applic Pantoprazole Sodium (Protonix Ec Tab) 40 mg PO DAILY [facility] Last Admin: 08/31/18 10:47 Dose: 40 mg Quetiapine Fumarate (Seroquel) 25 mg PO HS [facility] Last Admin: 08/31/18 21:21 Dose: 25 mg Silver Sulfadiazine (Silvadene 1% 20 Gm) 1 ea TOP BID [facility] Last Admin: 08/31/18 17:35 Dose: 1 applic Vitamin A (Vitamin A & D Oint Ud Foilpak) 1 ea TOP BID [facility] Last Admin: 08/31/18 17:35 Dose: 1 ea Zolpidem Tartrate (Ambien) 5 mg PO HS PRN PRN Reason: Insomnia Last Admin: 08/28/18 01:27 Dose: 5 mg - Labs Labs: 08/31/18 08:07 08/30/18 04:38
[2018-09-01] MEDS: ceFAZolin IV 1 gm in Dextrose 1 GM/50 ML BAG IVPB SCH ×3 (03:15→20:06)
[2018-09-01] MEDS: Vancomycin 1 gm/NS 200 ml 1 GM/200 ML BAG IVPB SCH ×2 (04:48→17:26)
[2018-09-01] MEDS: Carbidopa/Levodopa 25/100 CR PO SCH ×3 (08:24→21:35)
[2018-09-01] MEDS: Silver Sulfadiazine 1% Cream (20 gm) TOP SCH ×2 (09:39→17:24)
[2018-09-01] MEDS: Pantoprazole 40 mg EC Tab PO SCH (09:39)
[2018-09-01] MEDS: Vitamins A & D Oint UD Foilpak TOP SCH ×2 (09:39→17:25)
--- NOTE | 2018-09-01 14:31 | PN ---
DATE: 08/31/2018 SUBJECTIVE: The patient is a 53-year-old male. The patient was seen and examined at bedside on 08/31/2018. Looking comfortable. I examined the sacral area, rash is getting better. Sacral are is getting scabs. No fever. No chills. No hematuria or hematochezia. No headache or dizziness. PHYSICAL EXAMINATION: VITAL SIGNS: Temperature 98.2, pulse 94, respiratory rate 20, blood pressure 118/59, and pulse oximetry 97. HEENT: Head: Normocephalic and atraumatic. Eyes: PERRLA. Extraocular muscles intact. Conjunctivae clear. Nose patent. Mucous membranes moist. NECK: Supple. No carotid bruit, JVD, or thyromegaly. CHEST: Bilaterally symmetrical. HEART: S1 and S2 positive. LUNGS: Clear to auscultation. ABDOMEN: Soft. Bowel sounds positive. No organomegaly. EXTREMITIES: No edema. No cyanosis. NEUROLOGIC: The patient is awake and alert. Moving all four extremities. No focal deficits. MEDICATIONS: Tylenol, Wellbutrin, Sinemet, Klonopin, Ancef, vancomycin, ibuprofen, Protonix, Seroquel, Silvadene, and Ambien. LABORATORY DATA: White blood cells 15.7, hemoglobin 15.4, hematocrit 45.6, and platelets 692. Sodium 141, potassium 4.2, BUN 20, creatinine 0.3, glucose 103. ASSESSMENT AND PLAN: Mr. Susy Elaine is a 53-year-old male with leukocytosis, thrombocytosis with Parkinson's disease with stage I and II sacral decubitus ulcers, getting intravenous antibiotics. We will continue local wound care. Continue watching the white blood cells trend. cont. Antibiotics , physical therapy. Psychiatrist, surgeon and Infectious Disease is on the case. Review all phy. note. Repeat labs. We will follow up. Janee Mark MD [id number]
[2018-09-02 00:25] VITALS: PULSE 90
[2018-09-02] MEDS: ceFAZolin IV 1 gm in Dextrose 1 GM/50 ML BAG IVPB SCH ×2 (03:19→11:30)
--- NOTE | 2018-09-02 05:23 | PN ---
DATE: 09/01/2018 SUBJECTIVE: The patient is a 53-year-old male. The patient was seen and examined at the bedside on 09/01/2018, looking comfortable. No nausea, vomiting, or diarrhea. No hematuria or hematochezia. No swelling of the legs. No chest pain. No palpitation. No headache or dizziness. PHYSICAL EXAMINATION: VITAL SIGNS: Temperature 98.8, pulse 110, blood pressure 143/82, respiratory rate 20. HEENT: Head normocephalic, atraumatic. Eyes PERRLA. Extraocular movements intact. Conjunctivae clear. Nose patent. NECK: Supple. No carotid bruits, JVD or thyromegaly. CHEST: Bilaterally symmetrical. HEART: S1 and S2 positive. LUNGS: Clear to auscultation. ABDOMEN: Soft. Positive organomegaly. EXTREMITIES: No edema. No cyanosis. NEUROLOGIC: The patient is awake and alert. Moving all four extremities. No focal deficits. MEDICATIONS: Ambien, Ancef, Bactroban ointment, Klonopin, Motrin, Protonix, Seroquel, Silvadene cream, Sinemet, Tylenol, vitamin A and B, Wellbutrin. LABORATORY DATA: White blood cells 16.7, hemoglobin 15.4, hematocrit 45.3, platelets 692. Sodium 141, potassium 4.2, BUN 20, creatinine 0.8, glucose 103. ASSESSMENT AND PLAN: Mr. Chele Jain is a 53-year-old male with hyperglycemia, leukocytosis, thrombocytosis. The patient has sacral wound, stage I or II. Getting local wound care. Getting IV antibiotics as per Infectious Disease. Continue pressure offloading measures. Continue physical therapy as per Dr. Milian, surgeon. Seen by hem inspector, Dr. David Orourke; Dr. Gannon, Infectious Disease. Recall consult with Hematology, waiting for the input because of leukocytosis and thrombocytosis. GI and DVT prophylaxes. Repeat labs. We will follow up. Janee Mark MD
[2018-09-02 07:26] VITALS: BP 134/79; TEMP 98.9; O2SAT 96
[2018-09-02 07:30] LABS: BASO # 0.2 K/uL (0.0-0.2); BASO % 1.5 % (0.0-2.0); EOS # 0.4 K/uL (0.0-0.7); EOS % 2.7 % (0.0-4.0); LYMPH # 1.3 K/uL (1.0-4.3); MEAN CELL VOLUME 83.1 fL (80.0-94.0); MEAN CORPUSCULAR HEMOGLOBIN 28.8 pg (27.0-31.0); MEAN CORPUSCULAR HGB CONC 34.7 g/dL (33.0-37.0); MEAN PLATELET VOLUME 7.5 fL (7.2-11.7); MONO # 0.6 K/uL (0.0-0.8); MONO % 3.9 % (0.0-10.0); NEUT # 12.4 K/uL (1.8-7.0); NEUT % 82.9 % (50.0-75.0); NRBC % 0.1 % (0.0-2.0); PLATELET COUNT 657 K/uL (130-400); RED CELL DISTRIBUTION WIDTH 16.7 % (11.5-14.5); WHITE BLOOD COUNT 14.9 K/uL (4.8-10.8)
[2018-09-02] MEDS: Carbidopa/Levodopa 25/100 CR PO SCH (07:47)
[2018-09-02 08:05] LABS: BLOOD UREA NITROGEN 14 mg/dL (9-20); CALCIUM 9.6 mg/dl (8.6-10.4); GFR NON-AFRICAN AMERICAN > 60
[2018-09-02] MEDS: Pantoprazole 40 mg EC Tab PO SCH (09:00)
[2018-09-02] MEDS: Silver Sulfadiazine 1% Cream (20 gm) TOP SCH (09:00)
[2018-09-02 09:08] LABS: BANDS 4 % (0-2); BASOPHIL 3 % (0-2); EOSINOPHIL 3 % (0-4); LYMPHOCYTE 8 % (20-40); MONOCYTE 2 % (0-10); NEUTROPHIL 80 % (50-75); TOTAL CELLS COUNTED 100
[2018-09-02 09:09] LABS: PLATELET ESTIMATE MARKEDLY INCREASED (NORMAL)
[2018-09-02] MEDS: Vitamins A & D Oint UD Foilpak TOP SCH (10:00)
--- NOTE | 2018-09-02 16:34 | CP.PCM.PN ---
Subjective - Date & Time of Evaluation Date of Evaluation: 09/02/18 Time of Evaluation: 11:00 - Subjective Subjective: alert, awake, no distress noted. Objective - Vital Signs/Intake and Output Vital Signs (last 24 hours): Temp Pulse Resp BP Pulse Ox 98.9 F 90 20 134/79 96 09/02/18 07:25 09/02/18 07:25 09/02/18 07:25 09/02/18 07:25 09/02/18 07:25 Intake and Output: 09/02/18 09/02/18 06:59 18:59 Intake Total 350 Balance 350 - Labs Labs: 09/02/18 07:14 09/02/18 07:14 Assessment and Plan - Assessment and Plan (Free Text) Assessment: Patient is seen and examined. Alert, oriented, ambulating well today. Discussed with DR Mark, plan to discharge home today. Prescriptions given for sinemet as advised by neuro for parkinson's disease. Advised to follow up with neuro and PMD in 1 week.
--- NOTE | 2018-09-13 08:18 | DS ---
The patient is a 53-year-old male. The patient was admitted on 08/19/2018 and discharged on 09/02/2018. The patient was seen and examined at bedside on 09/02/2018. CHIEF COMPLAINT: Altered mental status. HISTORY OF PRESENT ILLNESS: The patient is a 53-year-old male with past medical history of hypertension and Parkinson's disease, brought to the emergency department for possibly overdose of medications at home. The patient took much of his medication and currently on Seroquel. The patient denies fever, chills, headache, nausea, vomiting, or diarrhea. The patient has history of substance abuse. The patient has history of narcotic abuse. We admitted the patient and did a CAT scan of the head. Seen by Dr. Anthony Rodriguez, psychiatrist and Dr. Jonatan Howard, forest pathology teacher. Medically, the patient improved. Discharged to psych department. The patient was treated by Dr. Geraldo Patel. The patient was tremulous and he has a rash on the sacral area when he had altered mental status at home. We do not know how many hours he was on that his back and has redness on the back. the patient has osteomyelitis. The patient was transferred to the medical floor. Seen by Dr. Harris Gannon. IV antibiotics given. The patient improved. Spoke to the patient's friend on the bedside. She was living with the patient at home. Parkinson's medicines readjusted. Antibiotics given. Arrangement done for home infusion. Rehab offered, the patient refused. Sent home with antibiotics. Follow up with ID, psychiatrist, and neurologist. PAST MEDICAL HISTORY: Hypertension and Parkinson's disease. FAMILY HISTORY: Father and mother, noncontributory. HABITS: Alcohol, no; substance abuse, no; smoking, no as per the patient. REVIEW OF SYSTEMS: The patient was seen and examined at bedside, looking comfortable. No fever. No chills. No headache. No dizziness. No chest pain. No palpitation. No hematuria. No hematochezia. Tremors got better. With antibiotics, sacral decubitus ulcer got better. Awake and alert, in no distress. PHYSICAL EXAMINATION: VITAL SIGNS: Temperature 98.9, pulse 90, respiratory rate 20, blood pressure 135/79, pulse oxymetry 96. HEENT: Head is normocephalic and atraumatic. Eyes, PERRLA. Extraocular movements intact. Conjunctivae clear. Nose patent. Mucous membranes moist. NECK: Supple. No carotid bruits, JVD or thyromegaly. CHEST: Bilaterally symmetrical. HEART: S1 and S2 positive. LUNGS: Clear to auscultation. ABDOMEN: Soft. Bowel sounds are present. No organomegaly. EXTREMITIES: No edema and no cyanosis. NEUROLOGIC: The patient is awake and alert. Moving all four extremities. No focal deficits. LABORATORY DATA: White blood cells 14.9, hemoglobin 15, hematocrit 43.2, platelets 657. Sodium 140, potassium 4.2, BUN 14, creatinine 0.7, glucose 91. ASSESSMENT AND PLAN: The patient is a 53-year-old male with leukocytosis and thrombocytosis. The patient has history of Parkinson's disease, drug abuse, sacral decubitus ulcer, got antibiotics, under care of Dr. Gannon, hyperglycemia. Local treatment given for sacral wound. Intravenous antibiotics given. Continued pressure offloading measures. Physical therapy given. Seen by surgeon, Dr. Milian; trimmer machine, Dr. David Orourke, Infectious Disease, Dr. Gannon. Seen by neurologist also. Sent home. Nurse practitioner, Ene Watson, gave prescription to the patient. The patient is oriented x3, understands the instructions. Supposed to follow up with neurologist, primary care physician, and psychiatrist. Janee Mark MD
== END 2018-09-02 13:00 | disposition home or self-care (01) | DRG 918 ==
LOC: C.ER 04:18 → C.9I 09:03 → OBSVTOIN 09:03 → INTOOBSV 09:03 → C.5S 08-21 06:12 → C.5E 08-21 20:51 → C.5S 08-21 21:09 → C.5E 08-22 14:33 → C.3T 08-26 13:45
PROVIDERS: ADMIT Internal Medicine; ATTEND Internal Medicine
DX: T42.8X2A Poisoning by antiparkinsonism drugs and other central muscle-tone depressants, intentional self-harm, initial encounter (principal); F33.2 Major depressive disorder, recurrent severe without psychotic features; L03.317 Cellulitis of buttock; L03.312 Cellulitis of back [any part except buttock and flank]; T48.1X2A Poisoning by skeletal muscle relaxants [neuromuscular blocking agents], intentional self-harm, initial encounter; T39.312A Poisoning by propionic acid derivatives, intentional self-harm, initial encounter; T45.0X2A Poisoning by antiallergic and antiemetic drugs, intentional self-harm, initial encounter; G20 Parkinson's disease; F41.9 Anxiety disorder, unspecified; E87.6 Hypokalemia; E87.8 Other disorders of electrolyte and fluid balance, not elsewhere classified; L89.152 Pressure ulcer of sacral region, stage 2; L89.159 Pressure ulcer of sacral region, unspecified stage; I87.2 Venous insufficiency (chronic) (peripheral); I10 Essential (primary) hypertension; R73.9 Hyperglycemia, unspecified; F06.30 Mood disorder due to known physiological condition, unspecified; R27.0 Ataxia, unspecified; M19.90 Unspecified osteoarthritis, unspecified site; G47.00 Insomnia, unspecified; G24.9 Dystonia, unspecified; F17.210 Nicotine dependence, cigarettes, uncomplicated; Y92.009 Unspecified place in unspecified non-institutional (private) residence as the place of occurrence of the external cause; Z91.5 Personal history of self-harm; Z79.899 Other long term (current) drug therapy